=== PATIENT | male | born 1955 | race African-American/Black ===

== ENCOUNTER 2016-12-02 11:17 | Inpatient (IN) | payer OTHER ==
[2016-12-02 13:02] VITALS: BMI 35.9
--- NOTE | 2016-12-02 14:26 | HP ---
CIWA Score - CIWA Score Nausea/Vomitin Muscle Tremors: 3 Anxiety: 3 Agitation: 3 Paroxysmal Sweats: 2 Orientation: 0-Oriented Tacttile Disturbances: 2-Mild Itch/Numbness/Burn Auditory Disturbances: 2-Mild Harshness/Frighten Visual Disturbances: 2-Mild Sensitivity Headache: 2-Mild CIWA-Ar Total Score: 22 Admission ROS BHS - HPI Chief Complaint: i need help to stop using klonopin and cocaine Allergies/Adverse Reactions: Allergies Allergy/AdvReac Type Severity Reaction Status Date / Time methadone Allergy Severe Swelling Verified 12/02/16 14:18 Penicillins Allergy Severe Rash Verified 12/02/16 14:18 acetaminophen [From Tylenol] AdvReac Severe Nausea Verified 12/02/16 14:18 History of Present Illness: this 61 years old male with klonopin and cocaine dependnence,withdrawal symptom, last detox [facility] 10/04/16 to 10/07/16 bipolar disorder hypertension longest period of sobriety 3 years asthma hypercholesterolemia Exam Limitations: No Limitations - Ebola screening Have you traveled outside of the country in the last 21 days: No Have you been sick,other than usual withdrawal symptoms: No - Review of Systems Constitutional: Loss of Appetite, Malaise, Night Sweats, Changes in sleep, Weakness EENT: reports: Nose Congestion Respiratory: reports: No Symptoms reported Cardiac: reports: Palpitations GI: reports: Diarrhea, Nausea, Vomiting, Abdominal cramping : reports: No Symptoms Reported Musculoskeletal: reports: Back Pain, Joint Pain, Muscle Pain Integumentary: reports: Dryness Neuro: reports: Headache, Tremors Endocrine: reports: No Symptoms Reported Hematology: reports: No Symptoms Reported Psychiatric: reports: other (bipolar disorder) Patient History - Patient Medical History Hx Anemia: No Hx Asthma: Yes (on albuterol inhaler) Hx Chronic Obstructive Pulmonary Disease (COPD): No Hx Cancer: No Hx Cardiac Disorders: No Hx Congestive Heart Failure: No Hx Hypertension: Yes (on med) Hx Hypercholesterolemia: Yes (crestor) Hx Pacemaker: No HX Cerebrovascular Accident: No Hx Seizures: No Hx Dementia: No Hx Diabetes: No Hx Gastrointestinal Disorders: No Hx Liver Disease: No Hx Genitourinary Disorders: No Hx Sexually Transmitted Disorders: No Hx Renal Disease (ESRD): No Hx Thyroid Disease: No Hx Human Immunodeficiency Virus (HIV): No (last 01/16 negative) Hx Hepatitis C: No Hx Depression: Yes Hx Suicide Attempt: No Hx Bipolar Disorder: Yes (hospitalized, seroquel, abilify) Hx Schizophrenia: No Other Medical History: no suicidal,no homicidal - Patient Surgical History Past Surgical History: Yes Hx Neurologic Surgery: No Hx Cataract Extraction: No Hx Cardiac Surgery: No Hx Lung Surgery: No Hx Breast Surgery: No Hx Breast Biopsy: No Hx Abdominal Surgery: No Hx Appendectomy: Yes (1979) Hx Cholecystectomy: No Hx Genitourinary Surgery: Yes (SURGERY FOR PROSTRATE IN 2012 TURP) Hx Section: No Hx Orthopedic Surgery: No Anesthesia Reaction: No - PPD History Documented Results: Positive w/proof Date: 11/30/13 Results: 0 MM PPD to be Administered?: No - Smoking Cessation Smoking history: Never smoked Have you smoked in the past 12 months: No Cigars Per Day: 0 Hx Chewing Tobacco Use: No - Substance & Tx. History Hx Alcohol Use: No Hx Substance Use: Yes Substance Use Type: Cocaine, Tranquilizers - Substances Abused Cocaine Route: Inhalation Frequency: Daily Amount used: $50 Age of first use: 25 Date of Last Use: 12/01/16 klonopin Route: Oral Frequency: 3-6 times per week Amount used: 2 tabs. (2 mg.) Age of first use: 61 Date of Last Use: 12/01/16 Family Disease History - Family Disease History Family History: Denies Admission Physical Exam BHS - Vital Signs Vital Signs: Vital Signs - 24 hr 12/02/16 12:57 Temperature 96.5 F L Pulse Rate 86 Respiratory 18 Rate Blood Pressure 159/96 - Physical General Appearance: Yes: Moderate Distress, Tremorous, Irritable, Sweating, Anxious HEENTM: Yes: Nasal Congestion Respiratory: Yes: Within Normal Limits, Lungs Clear Neck: Yes: Within Normal Limits Breast: Yes: Within Normal Limits Cardiology: Yes: Within Normal Limits, Regular Rhythm, Regular Rate, S1, S2 Abdominal: Yes: Within Normal Limits, Normal Bowel Sounds, Non Tender, Flat, Soft Genitourinary: Yes: Within Normal Limits Back: Yes: Muscle Spasm Musculoskeletal: Yes: Back pain, Muscle Pain Extremities: Yes: Tremors Neurological: Yes: technology recruiter 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 intact, Fully Oriented, Alert, Motor Strength 5/5 Integumentary: Yes: Dry Lymphatic: Yes: Within Normal Limits - Diagnostic (1) Uncomplicated sedative, hypnotic or anxiolytic withdrawal Status: Acute (2) Cocaine dependence Status: Acute Qualifiers: Substance use status: uncomplicated Qualified Code(s): F14.20 - Cocaine dependence, uncomplicated (3) Asthma Status: Chronic Qualifiers: Asthma severity: mild intermittent Asthma complication type: uncomplicated Qualified Code(s): J45.20 - Mild intermittent asthma, uncomplicated (4) H/O hypercholesterolemia Status: Chronic (5) Hypertension Status: Chronic Qualifiers: Hypertension type: essential hypertension Qualified Code(s): I10 - Essential (primary) hypertension (6) Bipolar disorder Status: Chronic Comment: By history. Cleared for Admission [facility] - Detox or Rehab [facility] Level of Care: Medically Managed Detox Regimen/Protocol: Valium S Breath Alcohol Content Breath Alcohol Content: 0.031 Urine Drug Screen - Results Drug Screen Negative: No Urine Drug Screen Results: EWELINA-Cocaine, BZO-Benzodiazepines
[2016-12-02] MEDS ORDERED: MAGNESIUM HYDROX 2400MG/30ML ORAL SUSPENSION 30 ML CUP PO PRN (14:31)
[2016-12-02] MEDS ORDERED: MAGNESIUM CITRATE 300 ML BOTTLE PO PRN (14:31)
[2016-12-02] MEDS ORDERED: diphenhydrAMINE HCL 50 MG CAPSULE PO PRN (14:31)
[2016-12-02] MEDS ORDERED: MAG HYDROX/AL HYDROX/SIMETH 30 ML UNIT-DOSE CUP PO PRN (14:31)
[2016-12-02] MEDS ORDERED: MENTHOL/PHENOL 1 EACH UD MM PRN (14:31)
[2016-12-02] MEDS ORDERED: IBUPROFEN 400 MG TABLET (FP) PO PRN (14:31)
[2016-12-02] MEDS ORDERED: P-EPHED 60MG/TRIPROLIDI 2.5MG TABLET PO PRN (14:31)
[2016-12-02] MEDS ORDERED: hydrOXYzine PAMOATE 50 MG CAPSULE (FP) PO PRN (14:31)
[2016-12-02] MEDS ORDERED: guaiFENesin/D-METHORPHAN HB 10 ML UNIT-DOSE CUPS PO PRN (14:31)
[2016-12-02] MEDS ORDERED: LOPERAMIDE HCL 2 MG CAPSULE PO PRN (14:31)
[2016-12-02] MEDS ORDERED: ALBUTEROL SO4 6.7 GM HFA INHALER IH PRN (14:35)
[2016-12-02] MEDS ORDERED: diazePAM 5 MG TABLET PO PRN (15:49)
--- NOTE | 2016-12-02 15:50 | CONSULT ---
[facility] Psychiatric Consult - Data Date of interview: 12/02/16 Admission source: [facility] Identifying data: Another admission to [facility] for this 61 y/o AA male seeking detox treatment,on ,for benzodiazepine (clonazepam) and cocaine dependence.Patient is ,a father of three,domiciled,unemployed and supported on SSI benefits. Substance Abuse History: - Smoking Cessation. Smoking history: Never smoked. Have you smoked in the past 12 months: No. Cigars Per Day: 0. Hx Chewing Tobacco Use: No. - Substance & Tx. History. Hx Alcohol Use: No. Hx Substance Use: Yes. Substance Use Type: Cocaine, Tranquilizers. Confirmed by the patient in my interview. Medical History: Bronchial asthma,HTN,hypercholesterolemia,arthritis,lower back pain and BPH (TURP in 2012).Noted history of appendectomy (1979). Psychiatric History: History of multiple psychiatric hospitalizations : [facility] (),[facility] (1999) and [facility] ( 2006).Diagnosed with Bipolar Disorder.Mr Thomas reports that he sees a psychiatrist at the [facility] for medication management ( celexa 10 mg/day + risperdal 2 mg/hs).He states that he last took his medications two weeks ago.No longer on mirtazapine (discontinued by his psychiatrist,as per patient).Admits to moderate insomnia.No reported history of suicide attempts. Physical/Sexual Abuse/Trauma History: Patient denies. Additional Comment: Urine Drug Screen Results: EWELINA-Cocaine, BZO- Benzodiazepines.Noted. Mental Status Exam - Mental Status Exam Alert and Oriented to: Time, Place, Person Cognitive Function: Good Patient Appearance: Well Groomed Mood: Nervous, Apprehensive Affect: Mood Congruent Patient Behavior: Fatigued, Cooperative Speech Pattern: Clear Voice Loudness: Normal Thought Process: Goal Oriented Thought Disorder: Not Present Hallucinations: Denies Suicidal Ideation: Denies Homicidal Ideation: Denies Insight/Judgement: Poor Sleep: Poorly, Difficulty falling asleep Appetite: Good Muscle strength/Tone: Normal Gait/Station: Normal Psychiatric Findings - Problem List ([employer] 1, 2,3) (1) Uncomplicated sedative, hypnotic or anxiolytic withdrawal Current Visit: Yes Status: Acute (2) Cocaine dependence Current Visit: Yes Status: Acute Qualifiers: Substance use status: uncomplicated Qualified Code(s): F14.20 - Cocaine dependence, uncomplicated (3) Substance induced mood disorder Current Visit: Yes Status: Acute (4) Bipolar disorder Current Visit: Yes Status: Suspected Comment: By history. 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
[2016-12-02] MEDS: ASPIRIN 81 MG CHEWABLE TABLETS PO SCH (15:51)
[2016-12-02] MEDS: amLODIPine BESYLATE 10 MG TABLET (FP) PO SCH (15:52)
[2016-12-02 16:27] LABS: URINE APPEARANCE CLOUDY; URINE BILIRUBIN NEGATIVE (NEGATIVE); URINE BLOOD NEGATIVE (NEGATIVE); URINE COLOR YELLOW; URINE GLUCOSE (UA) NEGATIVE (NEGATIVE); URINE KETONE NEGATIVE (NEGATIVE); URINE LEUK ESTERASE NEGATIVE (NEGATIVE); URINE NITRITE NEGATIVE (NEGATIVE); URINE PROTEIN NEGATIVE (NEGATIVE); URINE UROBILINOGEN NEGATIVE E.U./dl (0.2-1.0)
[2016-12-02] MEDS ORDERED: diazePAM 5 MG TABLET PO ONE (16:30)
[2016-12-02] MEDS: ENALAPRIL MALEATE 10 MG TABLET (FP) PO SCH (22:18)
[2016-12-02] MEDS: risperiDONE 1 MG TABLET (FP) PO SCH (22:18)
[2016-12-02] MEDS: THIAMINE HCL 100 MG TABLET (FP) PO SCH (22:18)
[2016-12-02] MEDS: ATORVASTATIN CA 10 MG TABLET (FP) PO SCH (22:18)
[2016-12-02] MEDS: diazePAM 5 MG TABLET PO SCH (22:18)
[2016-12-02] MEDS: ZOLPIDEM TARTRATE 5 MG TABLET PO PRN (22:19)
[2016-12-03] MEDS: diazePAM 5 MG TABLET PO SCH ×3 (06:12→22:13)
[2016-12-03 09:17] LABS: HIV 1 & 2 AB NEGATIVE; HIV 1 AGp24 NEGATIVE
[2016-12-03 10:15] LABS: MCH 31.2 pg (25.7-33.7); MCHC 33.3 g/dl (32.0-35.9); MEAN CELL VOLUME 93.7 fl (80-96); MEAN PLT VOLUME 8.8 fl (7.5-11.1); PLATELET COUNT 321 K/MM3 (134-434); RDW 13.3 % (11.9-15.9); WHITE BLOOD COUNT 7.8 K/mm3 (4.0-10.0)
[2016-12-03] MEDS: PRENATAL VITAMINS W/ FOLIC ACID TABLET (FP) PO SCH (10:17)
[2016-12-03] MEDS: amLODIPine BESYLATE 10 MG TABLET (FP) PO SCH (10:17)
[2016-12-03] MEDS: ASPIRIN 81 MG CHEWABLE TABLETS PO SCH (10:17)
[2016-12-03] MEDS: CITALOPRAM HYDROBROMIDE 10 MG TABLET (FP) PO SCH (10:17)
[2016-12-03] MEDS: ENALAPRIL MALEATE 10 MG TABLET (FP) PO SCH ×2 (10:18→22:13)
[2016-12-03 10:35] LABS: ALBUMIN 3.8 g/dl (3.4-5.0); ALK PHOS 106 U/L (45-117); ANION GAP 9 (8-16); BILIRUBIN,TOTAL 0.7 mg/dL (0.2-1.0); CALCIUM 8.9 mg/dL (8.5-10.1); CHOLESTEROL 196 mg/dL (50-200); CO2 26 mmol/L (21-32); CREATININE 1.1 mg/dL (0.7-1.3); GLUCOSE,RANDOM 109 mg/dL (74-106); LDL CHOLESTEROL (ONLY SJRH) 130 mg/dL (5-100); SGOT/AST 31 U/L (15-37); SGPT/ALT 61 U/L (12-78); TOT PROT 7.8 g/dl (6.4-8.2)
--- NOTE | 2016-12-03 11:09 | PN ---
S CIWA - CIWA Score Nausea/Vomitin Muscle Tremors: 3 Anxiety: 4-Mod. Anxious/Guarded Agitation: 4-Moderately Restless Paroxysmal Sweats: No Perspiration Orientation: 0-Oriented Tacttile Disturbances: 1-Very Mild Itch/Numbness Auditory Disturbances: 0-None Visual Disturbances: 0-None Headache: 3-Moderate CIWA-Ar Total Score: 18 BHS Progress Note (SOAP) Subjective: Anxious, tremors, interrupted sleep, body aches, Objective: Vital Signs Temperature 96.9 F L 12/03/16 09:47 Pulse Rate 78 12/03/16 09:47 Respiratory Rate 18 12/03/16 09:47 Blood Pressure 129/84 12/03/16 09:47 O2 Sat by Pulse Oximetry (%) Laboratory Last Values WBC 7.8 K/mm3 (4.0-10.0) 12/03/16 07:40 RBC 4.60 M/mm3 (4.00-5.60) 12/03/16 07:40 Hgb 14.4 GM/dL (11.7-16.9) 12/03/16 07:40 Hct 43.1 % (35.4-49) 12/03/16 07:40 MCV 93.7 fl (80-96) 12/03/16 07:40 MCHC 33.3 g/dl (32.0-35.9) 12/03/16 07:40 RDW 13.3 % (11.9-15.9) 12/03/16 07:40 Plt Count 321 K/MM3 (134-434) 12/03/16 07:40 MPV 8.8 fl (7.5-11.1) 12/03/16 07:40 Sodium 141 mmol/L (136-145) 12/03/16 07:40 Potassium 4.2 mmol/L (3.5-5.1) D 12/03/16 07:40 Chloride 106 mmol/L (98-107) 12/03/16 07:40 Carbon Dioxide 26 mmol/L (21-32) 12/03/16 07:40 Anion Gap 9 (8-16) 12/03/16 07:40 BUN 16 mg/dL (7-18) 12/03/16 07:40 Creatinine 1.1 mg/dL (0.7-1.3) 12/03/16 07:40 Creat Clearance w eGFR > 60 (>60) 12/03/16 07:40 Random Glucose 109 mg/dL (74-106) H D 12/03/16 07:40 Calcium 8.9 mg/dL (8.5-10.1) 12/03/16 07:40 Total Bilirubin 0.7 mg/dL (0.2-1.0) 12/03/16 07:40 AST 31 U/L (15-37) 12/03/16 07:40 ALT 61 U/L (12-78) D 12/03/16 07:40 Alkaline Phosphatase 106 U/L (45-117) 12/03/16 07:40 Total Protein 7.8 g/dl (6.4-8.2) 12/03/16 07:40 Albumin 3.8 g/dl (3.4-5.0) 12/03/16 07:40 Triglycerides 201 mg/dL (35-160) H D 12/03/16 07:40 Cholesterol 196 mg/dL (50-200) 12/03/16 07:40 Total LDL Cholesterol 130 mg/dL (5-100) H 12/03/16 07:40 HDL Cholesterol 55 mg/dL (40-60) D 12/03/16 07:40 Urine Color Yellow 12/02/16 15:04 Urine Appearance Cloudy 12/02/16 15:04 Urine pH 8.0 (5.0-8.0) D 12/02/16 15:04 Ur Specific [place] 1.021 (1.001-1.035) 12/02/16 15:04 Urine Protein Negative (NEGATIVE) 12/02/16 15:04 Urine Glucose (UA) Negative (NEGATIVE) 12/02/16 15:04 Urine Ketones Negative (NEGATIVE) 12/02/16 15:04 Urine Blood Negative (NEGATIVE) 12/02/16 15:04 Urine Nitrite Negative (NEGATIVE) 12/02/16 15:04 Urine Bilirubin Negative (NEGATIVE) 12/02/16 15:04 Urine Urobilinogen Negative E.U./dl (0.2-1.0) 12/02/16 15:04 Ur Leukocyte Esterase Negative (NEGATIVE) 12/02/16 15:04 HIV 1&2 Antibody Screen Negative 12/02/16 15:00 HIV P24 Antigen Negative 12/02/16 15:00 labs noted Assessment: Withdrawal Symptoms Plan: Continue Detox
--- NOTE | 2016-12-03 21:08 | EKG ---
Test Reason : Blood Pressure : / mmHG Vent. Rate : 088 BPM Atrial Rate : 088 BPM P-R Int : 176 ms QRS Dur : 082 ms QT Int : 388 ms P-R-T Axes : 047 049 021 degrees QTc Int : 469 ms NORMAL SINUS RHYTHM NORMAL ECG NO PREVIOUS ECGS AVAILABLE Confirmed by REBEKA MARINELLI MD ([id number]) on 12/03/2016 9:07:47 PM Referred By: Confirmed By:REBEAK MARINELLI MD
[2016-12-03] MEDS: THIAMINE HCL 100 MG TABLET (FP) PO SCH (22:12)
[2016-12-03] MEDS: risperiDONE 1 MG TABLET (FP) PO SCH (22:13)
[2016-12-03] MEDS: ATORVASTATIN CA 10 MG TABLET (FP) PO SCH (22:13)
[2016-12-03] MEDS: ZOLPIDEM TARTRATE 5 MG TABLET PO PRN (22:13)
[2016-12-04] MEDS: ASPIRIN 81 MG CHEWABLE TABLETS PO SCH (09:00)
[2016-12-04] MEDS: amLODIPine BESYLATE 10 MG TABLET (FP) PO SCH (09:00)
[2016-12-04] MEDS: CITALOPRAM HYDROBROMIDE 10 MG TABLET (FP) PO SCH (09:00)
[2016-12-04] MEDS: PRENATAL VITAMINS W/ FOLIC ACID TABLET (FP) PO SCH (09:00)
[2016-12-04] MEDS: ENALAPRIL MALEATE 10 MG TABLET (FP) PO SCH (09:01)
[2016-12-04] MEDS ORDERED: diazePAM 5 MG TABLET PO SCH (10:00)
[2016-12-04 10:51] VITALS: BP 141/83; PULSE 91; TEMP 97.3
--- NOTE | 2016-12-04 12:30 | DS ---
[facility] Detox Discharge Summary Admission Date: 12/02/16 Discharge Date: 12/04/16 - History Present History: Sedative Dependence Pertinent Past History: HTN, ASTHMA, HLD, Positive PPD - Physical Exam Results Vital Signs: Vital Signs Temperature 97.3 F L 12/04/16 10:36 Pulse Rate 91 H 12/04/16 10:36 Respiratory Rate 18 12/04/16 10:36 Blood Pressure 141/83 12/04/16 10:36 O2 Sat by Pulse Oximetry (%) Pertinent Admission Physical Exam Findings: Withdrawal symptoms Laboratory Tests 12/02/16 12/02/16 12/03/16 15:00 15:04 07:40 WBC 7.8 RBC 4.60 Hgb 14.4 Hct 43.1 MCV 93.7 MCHC 33.3 RDW 13.3 Plt Count 321 MPV 8.8 Sodium Potassium Chloride Carbon Dioxide Anion Gap BUN Creatinine Creat Clearance w eGFR Random Glucose Calcium Total Bilirubin AST ALT Alkaline Phosphatase Total Protein Albumin Triglycerides Cholesterol Total LDL Cholesterol HDL Cholesterol Urine Color Yellow Urine Appearance Cloudy Urine pH 8.0 D Ur Specific [place] 1.021 Urine Protein Negative Urine Glucose (UA) Negative Urine Ketones Negative Urine Blood Negative Urine Nitrite Negative Urine Bilirubin Negative Urine Urobilinogen Negative Ur Leukocyte Esterase Negative RPR Titer HIV 1&2 Antibody Screen Negative HIV P24 Antigen Negative 12/03/16 12/03/16 12/03/16 07:40 07:40 07:40 WBC RBC Hgb Hct MCV MCHC RDW Plt Count MPV Sodium 141 Potassium 4.2 D Chloride 106 Carbon Dioxide 26 Anion Gap 9 BUN 16 Creatinine 1.1 Creat Clearance w eGFR > 60 Random Glucose 109 H D Calcium 8.9 Total Bilirubin 0.7 AST 31 ALT 61 D Alkaline Phosphatase 106 Total Protein 7.8 Albumin 3.8 Triglycerides 201 H D Cancelled Cholesterol 196 Cancelled Total LDL Cholesterol 130 H Cancelled HDL Cholesterol 55 D Cancelled Urine Color Urine Appearance Urine pH Ur Specific [place] Urine Protein Urine Glucose (UA) Urine Ketones Urine Blood Urine Nitrite Urine Bilirubin Urine Urobilinogen Ur Leukocyte Esterase RPR Titer Nonreactive HIV 1&2 Antibody Screen HIV P24 Antigen Labs noted - Medication Discharge Medications: Ambulatory Orders Albuterol Sulfate Inhaler - [Ventolin HFA Inhaler -] 2 inh PO Q4H PRN #1 inhaler 08/03/16 Amlodipine Besylate [Norvasc -] 10 mg PO DAILY #30 tablet 08/03/16 Aspirin [ASA -] 81 mg PO DAILY #30 tab.chew 08/03/16 Atorvastatin Ca [Lipitor] 10 mg PO HS #30 tablet 08/03/16 Enalapril Maleate [Vasotec -] 10 mg PO BID #60 tablet 08/03/16 Mirtazapine [Remeron -] 15 mg PO HS #30 tablet 10/05/16 Citalopram Hydrobromide [Celexa -] 10 mg PO DAILY #30 tablet 12/02/16 Risperidone [Risperdal] 2 mg PO HS #30 tablet 12/02/16 - Diagnosis (1) Uncomplicated sedative, hypnotic or anxiolytic withdrawal Status: Acute (2) H/O hypercholesterolemia Status: Chronic (3) Hypertension Status: Chronic Qualifiers: Hypertension type: essential hypertension Qualified Code(s): I10 - Essential (primary) hypertension (4) Bipolar disorder Status: Chronic (5) Asthma Status: Chronic Qualifiers: Asthma severity: mild intermittent Asthma complication type: uncomplicated Qualified Code(s): J45.20 - Mild intermittent asthma, uncomplicated (6) PPD positive Status: Chronic - AMA Did Patient Leave Against Medical Advice: Yes
[2016-12-06] MEDS ORDERED: diazePAM 5 MG TABLET PO SCH (10:00)
== END 2016-12-04 09:15 | disposition left against medical advice (07) | DRG 770 ==
LOC: YASAS 11:17 → Y3N 14:36
PROVIDERS: ADMIT Internal Medicine; ATTEND Internal Medicine
PROC: HZ2ZZZZ Detoxification Services for Substance Abuse Treatment (ICD-10-PCS; principal; 2016-12-04)
DX: F13.230 Sedative, hypnotic or anxiolytic dependence with withdrawal, uncomplicated (principal); F14.20 Cocaine dependence, uncomplicated; F31.9 Bipolar disorder, unspecified; F19.24 Other psychoactive substance dependence with psychoactive substance-induced mood disorder; I10 Essential (primary) hypertension; J45.20 Mild intermittent asthma, uncomplicated; E78.00 Pure hypercholesterolemia, unspecified; R76.11 Nonspecific reaction to tuberculin skin test without active tuberculosis
CPT/HCPCS: 36415; 80053; 80061; 81003; 83721; 85027; 86593; 87389; 93005; 93010; J2794

== ENCOUNTER 2017-07-16 09:14 | Inpatient (IN) | payer OTHER ==
[2017-07-16 10:30] VITALS: BMI 32.6
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
[2017-07-16] MEDS ORDERED: IBUPROFEN 400 MG TABLET (FP) PO PRN (12:22)
[2017-07-16] MEDS ORDERED: MENTHOL/PHENOL 1 EACH UD MM PRN (12:22)
[2017-07-16] MEDS ORDERED: diazePAM 5 MG TABLET PO ONE (12:22)
[2017-07-16] MEDS ORDERED: MAGNESIUM CITRATE 300 ML BOTTLE PO PRN (12:22)
[2017-07-16] MEDS ORDERED: MAG HYDROX/AL HYDROX/SIMETH 30 ML UNIT-DOSE CUP PO PRN (12:22)
[2017-07-16] MEDS ORDERED: MAGNESIUM HYDROX 2400MG/30ML ORAL SUSPENSION 30 ML CUP PO PRN (12:22)
[2017-07-16] MEDS ORDERED: hydrOXYzine PAMOATE 50 MG CAPSULE (FP) PO PRN (12:22)
[2017-07-16] MEDS ORDERED: P-EPHED 60MG/TRIPROLIDI 2.5MG TABLET PO PRN (12:22)
[2017-07-16] MEDS ORDERED: guaiFENesin/D-METHORPHAN HB 10 ML UNIT-DOSE CUPS PO PRN (12:22)
[2017-07-16] MEDS ORDERED: LOPERAMIDE HCL 2 MG CAPSULE PO PRN (12:22)
[2017-07-16] MEDS ORDERED: ALBUTEROL SO4 18 GM HFA INHALER IH PRN (12:34)
[2017-07-16] MEDS: ASPIRIN 81 MG CHEWABLE TABLETS PO SCH (13:31)
[2017-07-16] MEDS: amLODIPine BESYLATE 10 MG TABLET (FP) PO SCH (13:32)
[2017-07-16] MEDS: ENALAPRIL MALEATE 10 MG TABLET (FP) PO SCH ×2 (13:32→22:23)
[2017-07-16] MEDS: diazePAM 5 MG TABLET PO SCH ×2 (13:33→22:23)
--- NOTE | 2017-07-16 14:36 | PN ---
BHS Progress Note Note: Done under my direct supervision
--- NOTE | 2017-07-16 16:27 | EKG ---
Test Reason : Blood Pressure : / mmHG Vent. Rate : 066 BPM Atrial Rate : 066 BPM P-R Int : 176 ms QRS Dur : 086 ms QT Int : 418 ms P-R-T Axes : 055 063 040 degrees QTc Int : 438 ms NORMAL SINUS RHYTHM MINIMAL VOLTAGE CRITERIA FOR LVH, MAY BE NORMAL VARIANT BORDERLINE ECG WHEN COMPARED WITH ECG OF 02-DEC-2016 16:53, NO SIGNIFICANT CHANGE WAS FOUND Confirmed by ANGELICA NEFF MD ([id number]) on 07/16/2017 4:26:30 PM Referred By: Confirmed By:ANGELICA NEFF MD
[2017-07-16 21:49] LABS: URINE APPEARANCE CLEAR; URINE BILIRUBIN NEGATIVE (NEGATIVE); URINE BLOOD NEGATIVE (NEGATIVE); URINE COLOR YELLOW; URINE GLUCOSE (UA) NEGATIVE (NEGATIVE); URINE KETONE NEGATIVE (NEGATIVE); URINE NITRITE NEGATIVE (NEGATIVE); URINE PROTEIN NEGATIVE (NEGATIVE); URINE UROBILINOGEN NEGATIVE mg/dL (0.2-1.0)
[2017-07-16] MEDS: ATORVASTATIN CA 10 MG TABLET (FP) PO SCH (22:23)
[2017-07-16] MEDS: THIAMINE HCL 100 MG TABLET (FP) PO SCH (22:23)
[2017-07-16] MEDS: diphenhydrAMINE HCL 50 MG CAPSULE PO PRN (22:24)
[2017-07-17] MEDS: diazePAM 5 MG TABLET PO SCH ×3 (06:10→22:11)
[2017-07-17] MEDS: amLODIPine BESYLATE 10 MG TABLET (FP) PO SCH (10:26)
[2017-07-17] MEDS: ENALAPRIL MALEATE 10 MG TABLET (FP) PO SCH ×2 (10:26→22:11)
[2017-07-17] MEDS: PRENATAL VITAMINS W/ FOLIC ACID TABLET (FP) PO SCH (10:26)
[2017-07-17] MEDS: diazePAM 5 MG TABLET PO PRN ×2 (10:26→17:24)
[2017-07-17] MEDS: ASPIRIN 81 MG CHEWABLE TABLETS PO SCH (10:26)
[2017-07-17 10:37] LABS: MCH 30.4 pg (25.7-33.7); MEAN CELL VOLUME 92.2 fl (80-96); MEAN PLT VOLUME 8.3 fl (7.5-11.1); PLATELET COUNT 372 K/MM3 (134-434); RDW 13.1 % (11.9-15.9); WHITE BLOOD COUNT 7.6 K/mm3 (4.0-10.0)
[2017-07-17 11:00] LABS: ALBUMIN 3.2 g/dl (3.4-5.0); ALK PHOS 114 U/L (45-117); ANION GAP 9 (8-16); BILIRUBIN,TOTAL 0.5 mg/dL (0.2-1.0); CALCIUM 8.9 mg/dL (8.5-10.1); CO2 27 mmol/L (21-32); CREATININE 0.8 mg/dL (0.7-1.3); GLUCOSE,RANDOM 97 mg/dL (74-106); SGOT/AST 15 U/L (15-37); SGPT/ALT 29 U/L (12-78); TOT PROT 6.7 g/dl (6.4-8.2)
[2017-07-17 11:46] LABS: HIV 1 & 2 AB NEGATIVE; HIV 1 AGp24 NEGATIVE
[2017-07-17] MEDS ORDERED: cloNIDine HCL 0.1 MG TABLET PO ONE (12:22)
--- NOTE | 2017-07-17 12:43 | PN ---
S CIWA - CIWA Score Nausea/Vomitin Muscle Tremors: 3 Anxiety: 3 Agitation: 2 Paroxysmal Sweats: 1-Minimal Palms Moist Orientation: 0-Oriented Tacttile Disturbances: 1-Very Mild Itch/Numbness Auditory Disturbances: 1-Very Mild Visual Disturbances: 0-None Headache: 2-Mild CIWA-Ar Total Score: 16 BHS Progress Note (SOAP) Subjective: ALERT,IRRITABLE,ANXIOUS,INTERRUPTED SLEEP,TREMOR Objective: 07/17/17 12:40 07/17/17 12:41 Vital Signs Temperature 97.7 F 07/17/17 09:52 Pulse Rate 76 07/17/17 09:52 Respiratory Rate 18 07/17/17 09:52 Blood Pressure 141/99 07/17/17 09:52 O2 Sat by Pulse Oximetry (%) EKG NSR,LVH NO CHEST PAIN,NO SOB,NO DIZZINESS Laboratory Last Values WBC 7.6 K/mm3 (4.0-10.0) 07/17/17 07:00 RBC 4.47 M/mm3 (4.00-5.60) 07/17/17 07:00 Hgb 13.6 GM/dL (11.7-16.9) 07/17/17 07:00 Hct 41.2 % (35.4-49) 07/17/17 07:00 MCV 92.2 fl (80-96) 07/17/17 07:00 MCH 30.4 pg (25.7-33.7) 07/17/17 07:00 MCHC 33.0 g/dl (32.0-35.9) 07/17/17 07:00 RDW 13.1 % (11.9-15.9) 07/17/17 07:00 Plt Count 372 K/MM3 (134-434) 07/17/17 07:00 MPV 8.3 fl (7.5-11.1) 07/17/17 07:00 Sodium 140 mmol/L (136-145) 07/17/17 07:00 Potassium 3.9 mmol/L (3.5-5.1) 07/17/17 07:00 Chloride 104 mmol/L (98-107) 07/17/17 07:00 Carbon Dioxide 27 mmol/L (21-32) 07/17/17 07:00 Anion Gap 9 (8-16) 07/17/17 07:00 BUN 13 mg/dL (7-18) 07/17/17 07:00 Creatinine 0.8 mg/dL (0.7-1.3) D 07/17/17 07:00 Creat Clearance w eGFR > 60 (>60) 07/17/17 07:00 Random Glucose 97 mg/dL (74-106) 07/17/17 07:00 Calcium 8.9 mg/dL (8.5-10.1) 07/17/17 07:00 Total Bilirubin 0.5 mg/dL (0.2-1.0) D 07/17/17 07:00 AST 15 U/L (15-37) D 07/17/17 07:00 ALT 29 U/L (12-78) D 07/17/17 07:00 Alkaline Phosphatase 114 U/L (45-117) 07/17/17 07:00 Total Protein 6.7 g/dl (6.4-8.2) 07/17/17 07:00 Albumin 3.2 g/dl (3.4-5.0) L 07/17/17 07:00 Urine Color Yellow 07/16/17 17:52 Urine Appearance Clear 07/16/17 17:52 Urine pH 6.0 (5.0-8.0) D 07/16/17 17:52 Urine Protein Negative (NEGATIVE) 07/16/17 17:52 Urine Glucose (UA) Negative (NEGATIVE) 07/16/17 17:52 Urine Ketones Negative (NEGATIVE) 07/16/17 17:52 Urine Blood Negative (NEGATIVE) 07/16/17 17:52 Urine Nitrite Negative (NEGATIVE) 07/16/17 17:52 Urine Bilirubin Negative (NEGATIVE) 07/16/17 17:52 Urine Urobilinogen Negative mg/dL (0.2-1.0) 07/16/17 17:52 RPR Titer Nonreactive (NONREACTIVE) 07/17/17 07:00 HIV 1&2 Antibody Screen Negative 07/17/17 07:00 HIV P24 Antigen Negative 07/17/17 07:00 Assessment: 07/17/17 12:42 WITHDRAWAL SYMPTOM Plan: CONTINUE DETOX
--- NOTE | 2017-07-17 14:52 | CONSULT ---
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 Substance Abuse History: Confirmed by patient. Smoking Cessation. Smoking history: Never smoked. Have you smoked in the past 12 months: No. Cigars Per Day: 0. Hx Chewing Tobacco Use: No. - Substance & Tx. History. Hx Alcohol Use : Yes. Hx Substance Use: Yes. Substance Use Type: Alcohol, Cocaine, Tranquilizers. Hx Substance Use Treatment: Yes (detox 2013). - Substances Abused. Alcohol. Route: Oral. Frequency: Daily. Amount used: VODKA 1 PINT , BEER- 1 SIX PACK. Age of first use: 21. Date of Last Use: 07/15/17. Benzodiazepine (Klonopin). Route: Oral. Frequency: Daily. Amount used: 2mg. Age of first use: 45. Date of Last Use: 07/15/17. Crack. Route: Smoking. Frequency: Daily. Amount used: 1gm. Age of first use: 20. Date of Last Use: 07/15/17 Medical History: Bronchial asthma,HTN,hypercholesterolemia,arthritis,lower back pain and BPH (TURP in 2012).Noted history of appendectomy (1979). Psychiatric History: No changes in longitudinal history : multiple psychiatric hospitalizations.Patient is known to [facility] (1989'),[facility] ( 1999) and [facility] (2006).Diagnosed with Bipolar Disorder.Mr Thomas reports that he sees a psychiatrist at the [facility] for medication management (celexa + abilify).Doses not recalled by patient.He states that he last took his medications two weeks ago.No reported history of suicide attempts. Physical/Sexual Abuse/Trauma History: Patient denies. Physical/Sexual Abuse/Trauma History: No history of abuse. Additional Comment: Urine Drug Screen Results: EWELINA-Cocaine, BZO- Benzodiazepines.Noted. Mental Status Exam - Mental Status Exam Alert and Oriented to: Time, Place, Person Cognitive Function: Good Patient Appearance: Well Groomed Mood: Hopeful, Euthymic Affect: Appropriate, Normal Range Patient Behavior: Appropriate, Cooperative Speech Pattern: Clear, Appropriate Voice Loudness: Normal Thought Process: Intact, Goal Oriented Thought Disorder: Not Present Hallucinations: Denies Suicidal Ideation: Denies Homicidal Ideation: Denies Insight/Judgement: Poor Sleep: Poorly, Difficulty falling asleep Appetite: Good Muscle strength/Tone: Normal Gait/Station: Normal Psychiatric Findings - Problem List ([place] 1, 2,3) (1) Alcohol dependence with uncomplicated withdrawal Current Visit: Yes Status: Acute (2) Cocaine dependence Current Visit: Yes Status: Acute Qualifiers: Substance use status: uncomplicated Qualified Code(s): F14.20 - Cocaine dependence, uncomplicated; F14.20 - Cocaine dependence, uncomplicated; F14.20 - Cocaine dependence, uncomplicated (3) Uncomplicated sedative, hypnotic or anxiolytic withdrawal Current Visit: Yes Status: Acute (4) Opioid dependence with withdrawal Current Visit: Yes Status: Acute (5) Bipolar disorder Current Visit: Yes Status: Suspected Comment: By history. (6) Asthma Current Visit: Yes Status: Chronic Qualifiers: Asthma severity: mild intermittent Asthma complication type: uncomplicated (7) H/O hypercholesterolemia Current Visit: Yes Status: Chronic (8) Hypertension Current Visit: Yes Status: Chronic Qualifiers: Hypertension type: essential hypertension Qualified Code(s): I10 - Essential (primary) hypertension; I10 - Essential (primary) hypertension; I10 - Essential (primary) hypertension (9) Insomnia Current Visit: Yes Status: Acute - Initial Treatment Plan Initial Treatment Plan: Psychoeducation.Detoxification.Medication : celexa 10 mg po daily.Insomnia is addressed with Ambien 10 mg po hs.Side effects/benefits of both medications are discussed with the patient.He agrees to follow this careplan.Observation.
[2017-07-17 15:34] LABS: URINE LEUK ESTERASE Negative (NEGATIVE)
[2017-07-17] MEDS: ATORVASTATIN CA 10 MG TABLET (FP) PO SCH (22:10)
[2017-07-17] MEDS: THIAMINE HCL 100 MG TABLET (FP) PO SCH (22:11)
[2017-07-17] MEDS: diphenhydrAMINE HCL 50 MG CAPSULE PO PRN (22:11)
[2017-07-18] MEDS: ASPIRIN 81 MG CHEWABLE TABLETS PO SCH (10:59)
[2017-07-18] MEDS: amLODIPine BESYLATE 10 MG TABLET (FP) PO SCH (10:59)
[2017-07-18] MEDS: PRENATAL VITAMINS W/ FOLIC ACID TABLET (FP) PO SCH (10:59)
[2017-07-18] MEDS: diazePAM 5 MG TABLET PO SCH ×2 (10:59→22:38)
[2017-07-18] MEDS: ENALAPRIL MALEATE 10 MG TABLET (FP) PO SCH ×2 (10:59→22:38)
[2017-07-18] MEDS: CITALOPRAM HYDROBROMIDE 10 MG TABLET (FP) PO SCH (11:00)
--- NOTE | 2017-07-18 12:25 | PN ---
BHS CIWA - CIWA Score Nausea/Vomitin Muscle Tremors: 3 Anxiety: 3 Agitation: 2 Paroxysmal Sweats: 1-Minimal Palms Moist Orientation: 0-Oriented Tacttile Disturbances: 1-Very Mild Itch/Numbness Auditory Disturbances: 1-Very Mild Visual Disturbances: 0-None Headache: 2-Mild CIWA-Ar Total Score: 16 BHS Progress Note (SOAP) Subjective: ALERT,IRRITABLE,ANXIOUS,INTERRUPTED SLEEP,TREMOR,PAIN IN THE BODY Objective: 07/18/17 12:23 Vital Signs Temperature 98.2 F 07/18/17 09:44 Pulse Rate 81 07/18/17 09:44 Respiratory Rate 18 07/18/17 09:44 Blood Pressure 146/96 07/18/17 09:44 O2 Sat by Pulse Oximetry (%) Assessment: 07/18/17 12:23 WITHDRAWAL SYMPTOM Plan: CONTINUE DETOX
[2017-07-18] MEDS: THIAMINE HCL 100 MG TABLET (FP) PO SCH (22:38)
[2017-07-18] MEDS: ZOLPIDEM TARTRATE 10 MG TABLET (PARK CARE ONLY) PO PRN (22:38)
[2017-07-18] MEDS: ATORVASTATIN CA 10 MG TABLET (FP) PO SCH (22:38)
[2017-07-19] MEDS: PRENATAL VITAMINS W/ FOLIC ACID TABLET (FP) PO SCH (10:42)
[2017-07-19] MEDS: diazePAM 5 MG TABLET PO SCH ×2 (10:42→22:28)
[2017-07-19] MEDS: amLODIPine BESYLATE 10 MG TABLET (FP) PO SCH (10:43)
[2017-07-19] MEDS: ENALAPRIL MALEATE 10 MG TABLET (FP) PO SCH ×2 (10:43→22:28)
[2017-07-19] MEDS: ASPIRIN 81 MG CHEWABLE TABLETS PO SCH (10:43)
[2017-07-19] MEDS: CITALOPRAM HYDROBROMIDE 10 MG TABLET (FP) PO SCH (10:43)
[2017-07-19] MEDS: diazePAM 5 MG TABLET PO PRN (12:02)
--- NOTE | 2017-07-19 12:36 | PN ---
BHS Progress Note (SOAP) Subjective: alert,irritable,anxious,interrupted sleep,pain in foot,body Objective: 07/19/17 12:35 Vital Signs Temperature 97.6 F 07/19/17 11:00 Pulse Rate 84 07/19/17 11:00 Respiratory Rate 20 07/19/17 11:00 Blood Pressure 153/100 07/19/17 11:00 O2 Sat by Pulse Oximetry (%) Assessment: 07/19/17 12:36 withdrawal symptom Plan: continue detox,discharge in am
[2017-07-19] MEDS: ATORVASTATIN CA 10 MG TABLET (FP) PO SCH (22:28)
[2017-07-19] MEDS: ZOLPIDEM TARTRATE 10 MG TABLET (PARK CARE ONLY) PO PRN (22:28)
[2017-07-19] MEDS: THIAMINE HCL 100 MG TABLET (FP) PO SCH (22:28)
--- NOTE | 2017-07-20 08:43 | DS ---
[facility] Detox Discharge Summary Admission Date: 07/16/17 Discharge Date: 07/20/17 - History Present History: Alcohol Dependence, Cocaine Dependence, Sedative Dependence Additional Comments: follow up with after care program as arrangement Pertinent Past History: asthma hepercholesterolemia hypertension bipolar disorder - Physical Exam Results Vital Signs: Vital Signs Temperature 97.2 F L 07/20/17 06:00 Pulse Rate 84 07/20/17 06:00 Respiratory Rate 18 07/20/17 06:00 Blood Pressure 145/97 07/20/17 06:00 O2 Sat by Pulse Oximetry (%) Pertinent Admission Physical Exam Findings: withdrawal symptom - Treatment Hospital Course: Detox Protocol Followed, Detoxed Safely, Responded well, Discharged Condition Good, Rehab Referral Accepted Patient has Accepted a Rehab Referral to: [facility] - Medication Discharge Medications: Ambulatory Orders Albuterol Sulfate Inhaler - [Ventolin HFA Inhaler -] 2 inh PO Q4H PRN #1 inhaler 08/03/16 Amlodipine Besylate [Norvasc -] 10 mg PO DAILY #30 tablet 08/03/16 Aspirin [ASA -] 81 mg PO DAILY #30 tab.chew 08/03/16 Atorvastatin Ca [Lipitor] 10 mg PO HS #30 tablet 08/03/16 Enalapril Maleate [Vasotec -] 10 mg PO BID #60 tablet 08/03/16 Mirtazapine [Remeron -] 15 mg PO HS #30 tablet 10/05/16 Citalopram Hydrobromide [Celexa -] 10 mg PO DAILY #30 tablet 12/02/16 Risperidone [Risperdal] 2 mg PO HS #30 tablet 12/02/16 - Diagnosis (1) Alcohol dependence with uncomplicated withdrawal Current Visit: Yes Status: Acute (2) Cocaine dependence Current Visit: Yes Status: Acute Qualifiers: Substance use status: uncomplicated Qualified Code(s): F14.20 - Cocaine dependence, uncomplicated; F14.20 - Cocaine dependence, uncomplicated; F14.20 - Cocaine dependence, uncomplicated (3) Asthma Current Visit: Yes Status: Chronic Qualifiers: Asthma severity: mild intermittent Asthma complication type: uncomplicated (4) H/O hypercholesterolemia Current Visit: Yes Status: Chronic (5) Hypertension Current Visit: Yes Status: Chronic Qualifiers: Hypertension type: essential hypertension Qualified Code(s): I10 - Essential (primary) hypertension; I10 - Essential (primary) hypertension; I10 - Essential (primary) hypertension (6) Bipolar disorder Current Visit: Yes Status: Suspected - AMA Did Patient Leave Against Medical Advice: No
[2017-07-20] MEDS ORDERED: diazePAM 5 MG TABLET PO SCH (10:00)
[2017-07-20 11:03] VITALS: BP 134/95; PULSE 90; TEMP 97.7
[2017-07-20] MEDS: ASPIRIN 81 MG CHEWABLE TABLETS PO SCH (11:14)
[2017-07-20] MEDS: CITALOPRAM HYDROBROMIDE 10 MG TABLET (FP) PO SCH (11:15)
[2017-07-20] MEDS: ENALAPRIL MALEATE 10 MG TABLET (FP) PO SCH (11:15)
[2017-07-20] MEDS: PRENATAL VITAMINS W/ FOLIC ACID TABLET (FP) PO SCH (11:15)
[2017-07-20] MEDS: amLODIPine BESYLATE 10 MG TABLET (FP) PO SCH (11:15)
== END 2017-07-20 13:45 | disposition other institution (70) | DRG 774 ==
LOC: YASAS 09:14 → Y6N 12:15
PROVIDERS: ADMIT Internal Medicine; ATTEND Internal Medicine
PROC: HZ2ZZZZ Detoxification Services for Substance Abuse Treatment (ICD-10-PCS; principal; 2017-07-16)
DX: F10.230 Alcohol dependence with withdrawal, uncomplicated (principal); F13.230 Sedative, hypnotic or anxiolytic dependence with withdrawal, uncomplicated; F14.20 Cocaine dependence, uncomplicated; F31.9 Bipolar disorder, unspecified; J45.20 Mild intermittent asthma, uncomplicated; E78.00 Pure hypercholesterolemia, unspecified; I10 Essential (primary) hypertension; G47.00 Insomnia, unspecified; Z88.0 Allergy status to penicillin; Z88.6 Allergy status to analgesic agent; R76.11 Nonspecific reaction to tuberculin skin test without active tuberculosis
CPT/HCPCS: 36415; 71020-TC; 80053; 81003; 85027; 86593; 87389; 93005; 93010

== ENCOUNTER 2017-07-20 13:59 | Inpatient (IN) | payer OTHER ==
--- NOTE | 2017-07-20 15:33 | HP ---
[facility] Rehab Assess/Revision - Admission History Admitted to Rehab from: [facility] [place] Date of Admission to Rehab: 07/20/2917 - Vital signs Vital Signs: Vital Signs Period Temp Pulse Resp BP Sys/Traylor Pulse Ox Last 24 Hr 98.2 F 94 19 120/85 - Findings Detox History & Physical reviewed: Yes Concur with findings: Yes Inpatient Rehab Admission - Initial Determination Are CD services needed?: Yes Free of communicable disease: Yes Not in need of hospitalization: Yes - Rehab Admission Criteria Comorbidities: Yes Patient is meeting Inpatient Rehab admission criteria:: Yes
[2017-07-20] MEDS ORDERED: MAGNESIUM HYDROX 2400MG/30ML ORAL SUSPENSION 30 ML CUP PO PRN (15:41)
[2017-07-20] MEDS ORDERED: MAG HYDROX/AL HYDROX/SIMETH 30 ML UNIT-DOSE CUP PO PRN (15:41)
[2017-07-20] MEDS ORDERED: hydrOXYzine PAMOATE 50 MG CAPSULE (FP) PO PRN (15:41)
[2017-07-20] MEDS ORDERED: MAGNESIUM CITRATE 300 ML BOTTLE PO PRN (15:41)
[2017-07-20] MEDS ORDERED: IBUPROFEN 400 MG TABLET (FP) PO PRN (15:41)
[2017-07-20] MEDS ORDERED: NICOTINE POLACRILEX 2 MG GUM BUC PRN (15:41)
[2017-07-20] MEDS ORDERED: P-EPHED 60MG/TRIPROLIDI 2.5MG TABLET PO PRN (15:41)
[2017-07-20] MEDS ORDERED: MENTHOL/PHENOL 1 EACH UD MM PRN (15:41)
[2017-07-20] MEDS ORDERED: LOPERAMIDE HCL 2 MG CAPSULE PO PRN (15:41)
[2017-07-20] MEDS ORDERED: ALBUTEROL SO4 18 GM HFA INHALER IH PRN (15:42)
[2017-07-20] MEDS: ATORVASTATIN CA 10 MG TABLET (FP) PO SCH (21:40)
[2017-07-20] MEDS: THIAMINE HCL 100 MG TABLET (FP) PO SCH (21:40)
[2017-07-20] MEDS: ENALAPRIL MALEATE 10 MG TABLET (FP) PO SCH (21:40)
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
[2017-07-21] MEDS: ENALAPRIL MALEATE 10 MG TABLET (FP) PO SCH ×2 (10:31→21:34)
[2017-07-21] MEDS: amLODIPine BESYLATE 10 MG TABLET (FP) PO SCH (10:31)
[2017-07-21] MEDS: ASPIRIN 81 MG CHEWABLE TABLETS PO SCH (10:31)
[2017-07-21] MEDS: PRENATAL VITAMINS W/ FOLIC ACID TABLET (FP) PO SCH (10:31)
[2017-07-21] MEDS: NICOTINE 14 MG/24 HOURS TOPICAL PATCH TD SCH (10:32)
[2017-07-21] MEDS ORDERED: PNEUMOC 13-VAL CONJ-DIP CRM/PF 0.5 ML DISP.SYRIN IM ONE (12:00)
[2017-07-21] MEDS ORDERED: FLU VACCINE QUAD 60 MCG/0.5 ML (MDV 17-18) IM ONE (12:00)
[2017-07-21] MEDS ORDERED: PNEUMOCOCCAL 23 VACCINE 0.5 ML VIAL IM ONE (12:00)
[2017-07-21] MEDS: CITALOPRAM HYDROBROMIDE 10 MG TABLET (FP) PO SCH (12:37)
[2017-07-21] MEDS: ATORVASTATIN CA 10 MG TABLET (FP) PO SCH (21:34)
[2017-07-21] MEDS: THIAMINE HCL 100 MG TABLET (FP) PO SCH (21:34)
[2017-07-21] MEDS: risperiDONE 2 MG TABLET PO SCH (21:34)
[2017-07-21] MEDS ORDERED: SUVOREXANT 10 MG TABLET PO PRN (22:00)
[2017-07-22] MEDS: NICOTINE 14 MG/24 HOURS TOPICAL PATCH TD SCH (10:00)
[2017-07-22] MEDS: ENALAPRIL MALEATE 10 MG TABLET (FP) PO SCH ×2 (10:00→21:21)
[2017-07-22] MEDS: PRENATAL VITAMINS W/ FOLIC ACID TABLET (FP) PO SCH (10:00)
[2017-07-22] MEDS: amLODIPine BESYLATE 10 MG TABLET (FP) PO SCH (10:00)
[2017-07-22] MEDS: ASPIRIN 81 MG CHEWABLE TABLETS PO SCH (10:00)
[2017-07-22] MEDS: CITALOPRAM HYDROBROMIDE 10 MG TABLET (FP) PO SCH (10:00)
[2017-07-22] MEDS: risperiDONE 2 MG TABLET PO SCH (21:21)
[2017-07-22] MEDS: ATORVASTATIN CA 10 MG TABLET (FP) PO SCH (21:21)
[2017-07-22] MEDS: THIAMINE HCL 100 MG TABLET (FP) PO SCH (21:21)
[2017-07-23] MEDS: PRENATAL VITAMINS W/ FOLIC ACID TABLET (FP) PO SCH (10:21)
[2017-07-23] MEDS: amLODIPine BESYLATE 10 MG TABLET (FP) PO SCH (10:21)
[2017-07-23] MEDS: ENALAPRIL MALEATE 10 MG TABLET (FP) PO SCH ×2 (10:21→21:31)
[2017-07-23] MEDS: ASPIRIN 81 MG CHEWABLE TABLETS PO SCH (10:21)
[2017-07-23] MEDS: CITALOPRAM HYDROBROMIDE 10 MG TABLET (FP) PO SCH (10:21)
[2017-07-23] MEDS: NICOTINE 14 MG/24 HOURS TOPICAL PATCH TD SCH (10:22)
[2017-07-23] MEDS: risperiDONE 2 MG TABLET PO SCH (21:31)
[2017-07-23] MEDS: THIAMINE HCL 100 MG TABLET (FP) PO SCH (21:31)
[2017-07-23] MEDS: ATORVASTATIN CA 10 MG TABLET (FP) PO SCH (21:31)
[2017-07-24] MEDS: PRENATAL VITAMINS W/ FOLIC ACID TABLET (FP) PO SCH (10:06)
[2017-07-24] MEDS: ASPIRIN 81 MG CHEWABLE TABLETS PO SCH (10:06)
[2017-07-24] MEDS: amLODIPine BESYLATE 10 MG TABLET (FP) PO SCH (10:06)
[2017-07-24] MEDS: CITALOPRAM HYDROBROMIDE 10 MG TABLET (FP) PO SCH (10:06)
[2017-07-24] MEDS: ENALAPRIL MALEATE 10 MG TABLET (FP) PO SCH ×2 (10:06→21:36)
[2017-07-24] MEDS: NICOTINE 14 MG/24 HOURS TOPICAL PATCH TD SCH (10:06)
[2017-07-24] MEDS: risperiDONE 2 MG TABLET PO SCH (21:36)
[2017-07-24] MEDS: ATORVASTATIN CA 10 MG TABLET (FP) PO SCH (21:36)
[2017-07-24] MEDS: THIAMINE HCL 100 MG TABLET (FP) PO SCH (21:36)
[2017-07-25] MEDS: ASPIRIN 81 MG CHEWABLE TABLETS PO SCH (10:25)
[2017-07-25] MEDS: ENALAPRIL MALEATE 10 MG TABLET (FP) PO SCH ×2 (10:25→21:53)
[2017-07-25] MEDS: amLODIPine BESYLATE 10 MG TABLET (FP) PO SCH (10:25)
[2017-07-25] MEDS: PRENATAL VITAMINS W/ FOLIC ACID TABLET (FP) PO SCH (10:25)
[2017-07-25] MEDS: CITALOPRAM HYDROBROMIDE 10 MG TABLET (FP) PO SCH (10:25)
[2017-07-25] MEDS: NICOTINE 14 MG/24 HOURS TOPICAL PATCH TD SCH (10:25)
[2017-07-25] MEDS ORDERED: HYDROCORTISONE 1% TOPICAL CREAM 30 GM TUBE TP ONE (11:48)
[2017-07-25] MEDS: HYDROCORTISONE 1% TOPICAL CREAM 30 GM TUBE TP PRN (15:53)
[2017-07-25] MEDS: ATORVASTATIN CA 10 MG TABLET (FP) PO SCH (21:53)
[2017-07-25] MEDS: risperiDONE 2 MG TABLET PO SCH (21:53)
[2017-07-25] MEDS: THIAMINE HCL 100 MG TABLET (FP) PO SCH (21:53)
[2017-07-25] MEDS: diphenhydrAMINE HCL 50 MG CAPSULE PO PRN (21:53)
[2017-07-26] MEDS: CITALOPRAM HYDROBROMIDE 10 MG TABLET (FP) PO SCH (10:36)
[2017-07-26] MEDS: ASPIRIN 81 MG CHEWABLE TABLETS PO SCH (10:36)
[2017-07-26] MEDS: ENALAPRIL MALEATE 10 MG TABLET (FP) PO SCH ×2 (10:36→21:19)
[2017-07-26] MEDS: PRENATAL VITAMINS W/ FOLIC ACID TABLET (FP) PO SCH (10:36)
[2017-07-26] MEDS: amLODIPine BESYLATE 10 MG TABLET (FP) PO SCH (10:36)
[2017-07-26] MEDS: HYDROCORTISONE 1% TOPICAL CREAM 30 GM TUBE TP PRN (10:36)
[2017-07-26] MEDS: NICOTINE 14 MG/24 HOURS TOPICAL PATCH TD SCH (10:38)
[2017-07-26] MEDS: ATORVASTATIN CA 10 MG TABLET (FP) PO SCH (21:19)
[2017-07-26] MEDS: THIAMINE HCL 100 MG TABLET (FP) PO SCH (21:19)
[2017-07-26] MEDS: risperiDONE 2 MG TABLET PO SCH (21:20)
[2017-07-27] MEDS: ASPIRIN 81 MG CHEWABLE TABLETS PO SCH (10:19)
[2017-07-27] MEDS: guaiFENesin/D-METHORPHAN HB 10 ML UNIT-DOSE CUPS PO PRN ×2 (10:19→17:14)
[2017-07-27] MEDS: CITALOPRAM HYDROBROMIDE 10 MG TABLET (FP) PO SCH (10:19)
[2017-07-27] MEDS: amLODIPine BESYLATE 10 MG TABLET (FP) PO SCH (10:19)
[2017-07-27] MEDS: ENALAPRIL MALEATE 10 MG TABLET (FP) PO SCH ×2 (10:19→21:38)
[2017-07-27] MEDS: PRENATAL VITAMINS W/ FOLIC ACID TABLET (FP) PO SCH (10:21)
[2017-07-27] MEDS: NICOTINE 14 MG/24 HOURS TOPICAL PATCH TD SCH (10:21)
[2017-07-27] MEDS: diphenhydrAMINE HCL 50 MG CAPSULE PO PRN (21:38)
[2017-07-27] MEDS: THIAMINE HCL 100 MG TABLET (FP) PO SCH (21:38)
[2017-07-27] MEDS: ATORVASTATIN CA 10 MG TABLET (FP) PO SCH (21:38)
[2017-07-27] MEDS: risperiDONE 2 MG TABLET PO SCH (21:38)
[2017-07-28] MEDS: PRENATAL VITAMINS W/ FOLIC ACID TABLET (FP) PO SCH (10:40)
[2017-07-28] MEDS: CITALOPRAM HYDROBROMIDE 10 MG TABLET (FP) PO SCH (10:40)
[2017-07-28] MEDS: amLODIPine BESYLATE 10 MG TABLET (FP) PO SCH (10:40)
[2017-07-28] MEDS: ENALAPRIL MALEATE 10 MG TABLET (FP) PO SCH ×2 (10:40→21:43)
[2017-07-28] MEDS: ASPIRIN 81 MG CHEWABLE TABLETS PO SCH (10:40)
[2017-07-28] MEDS: guaiFENesin/D-METHORPHAN HB 10 ML UNIT-DOSE CUPS PO PRN (10:41)
[2017-07-28] MEDS: NICOTINE 14 MG/24 HOURS TOPICAL PATCH TD SCH (10:42)
[2017-07-28] MEDS: THIAMINE HCL 100 MG TABLET (FP) PO SCH (21:43)
[2017-07-28] MEDS: ATORVASTATIN CA 10 MG TABLET (FP) PO SCH (21:43)
[2017-07-28] MEDS: risperiDONE 2 MG TABLET PO SCH (21:43)
[2017-07-29] MEDS: ENALAPRIL MALEATE 10 MG TABLET (FP) PO SCH ×2 (10:09→22:01)
[2017-07-29] MEDS: ASPIRIN 81 MG CHEWABLE TABLETS PO SCH (10:09)
[2017-07-29] MEDS: NICOTINE 14 MG/24 HOURS TOPICAL PATCH TD SCH (10:10)
[2017-07-29] MEDS: PRENATAL VITAMINS W/ FOLIC ACID TABLET (FP) PO SCH (10:10)
[2017-07-29] MEDS: amLODIPine BESYLATE 10 MG TABLET (FP) PO SCH (10:10)
[2017-07-29] MEDS: CITALOPRAM HYDROBROMIDE 10 MG TABLET (FP) PO SCH (10:10)
[2017-07-29] MEDS: risperiDONE 2 MG TABLET PO SCH (22:01)
[2017-07-29] MEDS: ATORVASTATIN CA 10 MG TABLET (FP) PO SCH (22:01)
[2017-07-29] MEDS: THIAMINE HCL 100 MG TABLET (FP) PO SCH (22:02)
[2017-07-30] MEDS: PRENATAL VITAMINS W/ FOLIC ACID TABLET (FP) PO SCH (10:31)
[2017-07-30] MEDS: ENALAPRIL MALEATE 10 MG TABLET (FP) PO SCH ×2 (10:31→21:10)
[2017-07-30] MEDS: NICOTINE 14 MG/24 HOURS TOPICAL PATCH TD SCH (10:31)
[2017-07-30] MEDS: amLODIPine BESYLATE 10 MG TABLET (FP) PO SCH (10:31)
[2017-07-30] MEDS: ASPIRIN 81 MG CHEWABLE TABLETS PO SCH (10:31)
[2017-07-30] MEDS: CITALOPRAM HYDROBROMIDE 10 MG TABLET (FP) PO SCH (10:31)
[2017-07-30] MEDS: ATORVASTATIN CA 10 MG TABLET (FP) PO SCH (21:10)
[2017-07-30] MEDS: risperiDONE 2 MG TABLET PO SCH (21:10)
[2017-07-30] MEDS: diphenhydrAMINE HCL 50 MG CAPSULE PO PRN (21:10)
[2017-07-30] MEDS: THIAMINE HCL 100 MG TABLET (FP) PO SCH (21:10)
[2017-07-31] MEDS: ASPIRIN 81 MG CHEWABLE TABLETS PO SCH (10:29)
[2017-07-31] MEDS: CITALOPRAM HYDROBROMIDE 10 MG TABLET (FP) PO SCH (10:29)
[2017-07-31] MEDS: PRENATAL VITAMINS W/ FOLIC ACID TABLET (FP) PO SCH (10:29)
[2017-07-31] MEDS: ENALAPRIL MALEATE 10 MG TABLET (FP) PO SCH ×2 (10:29→22:00)
[2017-07-31] MEDS: amLODIPine BESYLATE 10 MG TABLET (FP) PO SCH (10:30)
[2017-07-31] MEDS: NICOTINE 14 MG/24 HOURS TOPICAL PATCH TD SCH (10:30)
--- NOTE | 2017-07-31 11:58 | PN ---
Psychiatric Progress Note Vital Signs: Vital Signs Period Temp Pulse Resp BP Sys/Traylor Pulse Ox Last 24 Hr 98.1 F 74-84 20-20 133-151/82-88 Date of Session: 07/31/17 Chief Complaint:: Discharge Note HPI: Patient addressing Alcohol, Cocaine and Sedative Dependence comorbid with Bipolar Disorder and Substance-Induced Sleep Disorder Current Medications: Active Medications Generic Name Dose Route Start Last Admin Trade Name Freq PRN Reason Stop Dose Admin Al Hydroxide/Mg Hydroxide 30 ml 07/20/17 15:41 Mylanta Oral Suspension - PO Q6H PRN DYSPEPSIA Albuterol Sulfate 2 puff 07/20/17 15:42 Ventolin Hfa Inhaler - IH Q4H PRN ASTHMA Amlodipine Besylate 10 mg 07/21/17 10:00 07/31/17 10:30 Norvasc - PO 10 mg DAILY CEM Administration Aspirin 81 mg 07/21/17 10:00 07/31/17 10:29 Asa - PO 81 mg DAILY CEM Administration Atorvastatin Calcium 10 mg 07/20/17 22:00 07/30/17 21:10 Lipitor - PO 10 mg HS CEM Administration Citalopram Hydrobromide 10 mg 07/21/17 12:00 07/31/17 10:29 Celexa - PO 10 mg DAILY CEM Administration Diphenhydramine HCl 50 mg 07/20/17 15:41 07/30/17 21:10 Benadryl - PO 50 mg HSMR1 PRN Administration FOR ITCHING Enalapril Maleate 10 mg 07/20/17 22:00 07/31/17 10:29 Vasotec - PO 10 mg BID CEM Administration Eucalyptus/Menthol/Phenol/Sorbitol 1 each 07/20/17 15:41 Cepastat Lozenge - MM Q4H PRN SORE THROAT Guaifenesin 10 ml 07/20/17 15:41 07/28/17 10:41 Robitussin Dm - PO 10 ml Q6H PRN Administration COUGH Hydrocortisone 1 applic 07/25/17 11:48 07/26/17 10:36 Hytone 1% Cream - TP 1 applic DAILY PRN Administration DRY SKIN Hydroxyzine Pamoate 50 mg 07/20/17 15:41 Vistaril - PO Q4H PRN AGITATION Ibuprofen 400 mg 07/20/17 15:41 07/25/17 10:26 Motrin - PO 400 mg Q6H PRN Administration PAIN Loperamide HCl 4 mg 07/20/17 15:41 Imodium - PO Q6H PRN DIARRHEA Magnesium Hydroxide 30 ml 07/20/17 15:41 Milk Of Magnesia - PO DAILY PRN CONSTIPATION Nicotine 14 mg 07/21/17 10:00 07/31/17 10:30 Nicoderm Patch - TD Not Given DAILY CEM Nicotine Polacrilex 2 mg 07/20/17 15:41 Nicorette Gum - BUC Q2H PRN NICOTINE REPLACEMENT RX Multivit/Folic Acid/Iron 1 tab 07/21/17 10:00 07/31/17 10:29 Vitamins (Sjr) - PO 1 tab DAILY CEM Administration Pseudoephedrine/Triprolidine 1 combo 07/20/17 15:41 Actifed - PO TID PRN NASAL CONGESTION Risperidone 2 mg 07/21/17 22:00 07/30/17 21:10 Risperdal - PO 2 mg HS CEM Administration Thiamine HCl 100 mg 07/20/17 22:00 07/30/17 21:10 Vitamin B1 - PO 100 mg HS CEM Administration Current Side Effect: No Lab tests ordered: Yes Lab tests reviewed: Yes Provider note:: Patient will complete this program on 08/01/17. He has met his treatment goals and will continue to address his issues in outpatient treatment at [facility] at [address] [place] [address]. 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 He said that in this program , he listened to stories of people that have gone through things he does not wish to go through. He realizes that that he has to make his outpatient program works for him in order to attain that goal. He responded well to Celexa 10 mg po daily and Risperdal 2 mg po HS. Scripts for 30 days supply of these medications will be electronically transmitted to [facility] pharmacy at [address] [place] [id number]. He is stable for discharge on 08/01/17 Total face to face time:: 35 Mental Status Exam - Mental Status Exam Alert and Oriented to: Time, Place, Person Cognitive Function: Fair Patient Appearance: Well Groomed Mood: Hopeful, Euthymic Affect: Appropriate Patient Behavior: Cooperative Speech Pattern: Clear Voice Loudness: Normal, Limited Variation Thought Process: Goal Oriented Thought Disorder: Not Present Hallucinations: Denies Suicidal Ideation: Denies Homicidal Ideation: Denies Insight/Judgement: Fair Sleep: Fair Appetite: Good Muscle strength/Tone: Normal Gait/Station: Normal Psychiatric Treatment Plan - Problem List (1) Alcohol dependence Current Visit: Yes (2) Cocaine dependence Current Visit: No Qualifiers: Substance use status: uncomplicated Qualified Code(s): F14.20 - Cocaine dependence, uncomplicated; F14.20 - Cocaine dependence, uncomplicated; F14.20 - Cocaine dependence, uncomplicated (3) Sedative hypnotic or anxiolytic dependence Current Visit: Yes (4) Bipolar disorder Current Visit: No Comment: By history. (5) Substance-induced sleep disorder Current Visit: No (6) Asthma Current Visit: No Qualifiers: Asthma severity: mild intermittent Asthma complication type: uncomplicated (7) H/O hypercholesterolemia Current Visit: No (8) Hypertension Current Visit: No Qualifiers: Hypertension type: essential hypertension Qualified Code(s): I10 - Essential (primary) hypertension; I10 - Essential (primary) hypertension; I10 - Essential (primary) hypertension (9) PPD positive Current Visit: No (10) PTSD (post-traumatic stress disorder) Current Visit: Yes Initial treatment plan: Patient will be discharged tomorrow and transferred to [facility] for outpatient treatment
[2017-07-31] MEDS: THIAMINE HCL 100 MG TABLET (FP) PO SCH (22:00)
[2017-07-31] MEDS: risperiDONE 2 MG TABLET PO SCH (22:00)
[2017-07-31] MEDS: ATORVASTATIN CA 10 MG TABLET (FP) PO SCH (22:00)
[2017-07-31] MEDS: diphenhydrAMINE HCL 50 MG CAPSULE PO PRN (22:01)
[2017-08-01 06:57] VITALS: BP 135/88; PULSE 77; TEMP 98.3
[2017-08-01] MEDS: PRENATAL VITAMINS W/ FOLIC ACID TABLET (FP) PO SCH (09:36)
[2017-08-01] MEDS: CITALOPRAM HYDROBROMIDE 10 MG TABLET (FP) PO SCH (09:37)
[2017-08-01] MEDS: ASPIRIN 81 MG CHEWABLE TABLETS PO SCH (09:37)
[2017-08-01] MEDS: amLODIPine BESYLATE 10 MG TABLET (FP) PO SCH (09:37)
[2017-08-01] MEDS: NICOTINE 14 MG/24 HOURS TOPICAL PATCH TD SCH (09:37)
[2017-08-01] MEDS: ENALAPRIL MALEATE 10 MG TABLET (FP) PO SCH (09:37)
== END 2017-08-01 10:00 | disposition home or self-care (01) | DRG 772 ==
LOC: YASAS 13:59 → Y3W 14:01
PROVIDERS: ADMIT Psychiatry & Neurology Psychiatry; ATTEND Psychiatry & Neurology Psychiatry
PROC: HZ42ZZZ Group Counseling for Substance Abuse Treatment, Cognitive-Behavioral (ICD-10-PCS; principal; 2017-07-20)
DX: F10.20 Alcohol dependence, uncomplicated (principal); F13.20 Sedative, hypnotic or anxiolytic dependence, uncomplicated; F14.20 Cocaine dependence, uncomplicated; F31.9 Bipolar disorder, unspecified; F19.24 Other psychoactive substance dependence with psychoactive substance-induced mood disorder; F43.10 Post-traumatic stress disorder, unspecified; I10 Essential (primary) hypertension; E78.00 Pure hypercholesterolemia, unspecified; J45.20 Mild intermittent asthma, uncomplicated; R76.11 Nonspecific reaction to tuberculin skin test without active tuberculosis
CPT/HCPCS: 90688; 90732; G0008; G0009

== ENCOUNTER 2019-05-10 12:34 | Inpatient (IN) | payer OTHER ==
[2019-05-10 15:45] VITALS: BMI 36.5
--- NOTE | 2019-05-10 19:25 | HP ---
CIWA Score Nausea/Vomitin (nausea w/ vomiting) Muscle Tremors: 4-Moderate,w/Arms Extend Anxiety: 1-Mildly Anxious Agitation: 1-Slight > Activity Paroxysmal Sweats: 3 (Increased facial moisture) Orientation: 0-Oriented Tacttile Disturbances: 0-None Auditory Disturbances: 0-None Visual Disturbances: 0-None Headache: 0-None Present CIWA-Ar Total Score: 15 - Admission Criteria OASAS Guidelines: Admission for Medically Managed Detox: Requires at least one of the followin. CIWA greater than 12 2. Seizures within the past 24 hours 3. Delirium tremens within the past 24 hours 4. Hallucinations within the past 24 hours 5. Acute intervention needed for co occurring medical disorder 6. Acute intervention needed for co occurring psychiatric disorder 7. Severe withdrawal that cannot be handled at a lower level of care (continued vomiting, continued diarrhea, abnormal vital signs) requiring intravenous medication and/or fluids 8. Patient presents the following: CIWA greater than 12 Admission Criteria Met: Admission criteria met Admission ROS S - [facility] Chief Complaint: Here with alcohol withdrawal. I need to stop using alcohol and cocaine. Allergies/Adverse Reactions: Allergies Allergy/AdvReac Type Severity Reaction Status Date / Time Penicillins Allergy Severe Rash Verified 05/10/19 15:39 methadone Allergy Rash Verified 05/10/19 15:39 History of Present Illness: 64 yo presents w/ alcohol withdrawal and requesting detox. Alcohol use began at age 21. States last drink last night. Current use 1 pt liquor/day. States amt is consistent since age 25. Marijuana use began at age 16. Frequency = every now and then. Cocaine use began at age 30. Nasal. 1 gm/day. Benzo - denies use. Hx: blackouts - last 3 weeks ago Denies overdoses/seizures. Longest sobriety 1 year in 1978. PMHx: HTN; Asthma ( last exacerbation 5 months ago); Increased cholesterol; Heart Murmur; Swollen legs; MHHx: Bipolar. On meds. Last took medications on 05/09/19. Last saw MH Provider 1 month ago. Denies thoughts of harming self or others. Patient Name: Michael Thomas Date: 1955 Address: [address] [place] [address] Sex: Male Rx Written Rx Dispensed Drug Quantity Days Supply Prescriber Name 03/11/2019 03/11/2019 chlordiazepoxide 10 mg capsule 45 3 LauraisaacAndrew MD 01/28/2019 01/28/2019 chlordiazepoxide 10 mg capsule 10 1 LaksAndrew MD 01/22/2019 01/22/2019 chlordiazepoxide 10 mg capsule 45 3 LakisaacAndrew MD 11/02/2018 11/02/2018 chlordiazepoxide 10 mg capsule 40 3 Andrew Reardon MD Patient Name: Michael Thomas Date: 1955 Address: [address] [place] [address] Sex: Male Rx Written Rx Dispensed Drug Quantity Days Supply Prescriber Name 06/20/2018 06/20/2018 oxycodone-acetaminophen 10-325 mg tab 90 30 William Byrne MD 06/06/2018 06/06/2018 oxycodone-acetaminophen 10-325 mg tab 45 15 Chica Su ([employer]CH[employer]ER-) Search Terms: Michael Thomas, 1955 Search Date: 05/10/2019 07:23:03 PM States Searched: [place], [place], [place], [place], [place], [place], [place], [place] The Drug Utilization Report below displays the controlled substance prescriptions, if any, that were dispensed in the indicated state(s). The information displayed on this report is compiled from requests submitted to other states' PMPs, and accurately reflects the information as returned by them. Blank alvarez indicate data not provided by other state. This report was requested by: Angela Moyer | Reference #: [id number] Exam Limitations: No Limitations - Ebola screening Have you traveled outside of the country in the last 21 days: No (N) Have you had contact with anyone from an Ebola affected area: No Have you been sick,other than usual withdrawal symptoms: No (Denies recent exposure to measles) Do you have a fever: No - Review of Systems Constitutional: Diaphoresis, Changes in sleep (Difficulty falling asleep - takes Seroquel) EENT: reports: Blurred Vision, Dental Problems (Partial dentures. Chews and swallows ok.) Respiratory: reports: No Symptoms reported Cardiac: reports: No Symptoms Reported, Other (Hx: Murmur) GI: reports: Nausea, Vomiting (Vomiting up liquids) : reports: No Symptoms Reported Musculoskeletal: reports: Back Pain (Chronic LBP. Pain is throbbing is "8". Increases w/ sitting too long/standing or walking. Improves sitting for short periods or laying down.) Integumentary: reports: No Symptoms Reported Neuro: reports: Tremors Endocrine: reports: Intolerance to Cold Hematology: reports: No Symptoms Reported Psychiatric: reports: Judgement Intact, Orientated x3, Agitated, Anxious, Depressed (Bi-polar: Denies thoughts of harming self or others.) Patient History - Patient Medical History Hx Anemia: No Hx Asthma: Yes Hx Chronic Obstructive Pulmonary Disease (COPD): No Hx Cancer: No Hx Cardiac Disorders: No Hx Congestive Heart Failure: No Hx Hypertension: Yes Hx Hypercholesterolemia: Yes (crestor) Hx Pacemaker: No HX Cerebrovascular Accident: No Hx Seizures: No Hx Dementia: No Hx Diabetes: No Hx Gastrointestinal Disorders: No Hx Liver Disease: No Hx Genitourinary Disorders: No Hx Sexually Transmitted Disorders: No Hx Renal Disease (ESRD): No Hx Thyroid Disease: No Hx Human Immunodeficiency Virus (HIV): No Hx Hepatitis C: No Hx Depression: Yes Hx Suicide Attempt: No Hx Bipolar Disorder: Yes (hospitalized, seroquel, abilify) Hx Schizophrenia: No - Patient Surgical History Past Surgical History: Yes Hx Neurologic Surgery: No Hx Cataract Extraction: No Hx Cardiac Surgery: No Hx Lung Surgery: No Hx Breast Surgery: No Hx Breast Biopsy: No Hx Abdominal Surgery: No Hx Appendectomy: Yes (1979) Hx Cholecystectomy: No Hx Genitourinary Surgery: Yes (SURGERY FOR PROSTRATE IN 2012 TURP) Hx Section: No Hx Orthopedic Surgery: No Anesthesia Reaction: No - PPD History Previous Implant?: Yes Documented Results: Positive w/proof Implanted On Prior [facility] Admission?: Yes Date: 11/30/13 Results: 10 mm PPD to be Administered?: No - Smoking Cessation Smoking history: Never smoked Have you smoked in the past 12 months: No Cigars Per Day: 0 Hx Chewing Tobacco Use: No Initiated information on smoking cessation: No - Substance & Tx. History Hx Alcohol Use: Yes Hx Substance Use: Yes Substance Use Type: Alcohol, Cocaine Hx Substance Use Treatment: Yes (detox, rehab) - Substances abused Alcohol Other (specify): Vodka Substance route: Oral Frequency: Daily Amount used: 1 pint Age of first use: 21 Date of last use: 05/10/19 Cocaine Substance route: Inhalation Frequency: 1-2 times per week Amount used: 1 gram Age of first use: 30 Date of last use: 05/09/19 Family Disease History - Family Disease History Family Disease History: Diabetes: Grandparent, Heart Disease: Mother (HTN) Admission Physical Exam [facility] - Vital Signs Vital Signs: Vital Signs - 24 hr 05/10/19 15:36 Temperature 96.6 F L Pulse Rate 73 Respiratory 18 Rate Blood Pressure 147/92 - Physical General Appearance: Yes: Nourished, Mild Distress, Tremorous, Sweating ( Increased facial moisture), Anxious HEENTM: Yes: Normal ENT Inspection, Normocephalic, Normal Voice, MATT, Pharynx Normal Respiratory: Yes: Lungs Clear (O2 Sta = 97 %), Normal Breath Sounds, No Respiratory Distress Neck: Yes: No masses,lesions,Nodules, Supple Breast: Yes: Breast Exam Deferred Cardiology: Yes: Regular Rhythm, Regular Rate (HR: 72), S1, S2, Murmur Abdominal: Yes: Non Tender, Soft, Increased Bowel Sounds, Protuberent ( Increased abdominal adiposity) Genitourinary: Yes: Within Normal Limits Back: Yes: Normal Inspection Musculoskeletal: Yes: full range of Motion, Gait Steady Extremities: Yes: Normal Capillary Refill, Tremors, Swelling (Bilateral LE edema equal from ankles to below knee;) Neurological: Yes: director of student affairs II-XII NML intact, Fully Oriented, Alert, Motor Strength 5/5, Normal Response Integumentary: Yes: Normal Color, Warm, Diaphoresis (Increased facial moisture) , Pitting Edema (BLE; mild) Lymphatic: Yes: Within Normal Limits - Diagnostic (1) History of positive PPD Current Visit: Yes Status: Chronic (2) History of asthma Current Visit: Yes Status: Chronic (3) Alcohol dependence with uncomplicated withdrawal Current Visit: Yes Status: Acute (4) Cocaine dependence Current Visit: Yes Status: Chronic Qualifiers: Substance use status: uncomplicated Qualified Code(s): F14.20 - Cocaine dependence, uncomplicated (5) H/O hypercholesterolemia Current Visit: Yes Status: Chronic (6) Hypertension Current Visit: Yes Status: Chronic Qualifiers: Hypertension type: essential hypertension Qualified Code(s): I10 - Essential (primary) hypertension (7) Edema Current Visit: Yes Status: Chronic Qualifiers: Edema type: unspecified Qualified Code(s): R60.9 - Edema, unspecified Comment: BLE Ankles to below knee (8) Murmur, cardiac Current Visit: Yes Status: Chronic Cleared for Admission [facility] - Detox or Rehab [facility] Level of Care: Medically Managed Detox Regimen/Protocol: Librium Claeared for Rehab Admission: No Breathalyzer - Breathalyzer Breathalyzer: 0 Urine Drug Screen - Test Device Lot number: [id number] Expiration date: 02/05/21 - Control Is test valid?: Yes - Results Drug screen NEGATIVE: No Urine drug screen results: THC-Marijuana, EWELINA-Cocaine, BZO-Benzodiazepines Inpatient Rehab Admission - Rehab Decision to Admit Inpatient rehab admission?: No
[2019-05-10] MEDS ORDERED: MAGNESIUM HYDROX 2400MG/30ML ORAL SUSPENSION 30 ML CUP PO PRN (19:50)
[2019-05-10] MEDS ORDERED: IBUPROFEN 400 MG TABLET (FP) PO PRN (19:50)
[2019-05-10] MEDS ORDERED: chlordiazePOXIDE HCL 25 MG CAPSULE PO PRN (19:50)
[2019-05-10] MEDS ORDERED: METHOCARBAMOL 500 MG TABLET PO PRN (19:50)
[2019-05-10] MEDS ORDERED: MELATONIN 5 MG TABLETS PO PRN (19:50)
[2019-05-10] MEDS ORDERED: MAGNESIUM CITRATE 300 ML BOTTLE PO PRN (19:50)
[2019-05-10] MEDS ORDERED: ACETAMINOPHEN 325 MG TABLET (FP) PO PRN ×2 (19:50)
[2019-05-10] MEDS ORDERED: BISMUTH SUBSALICYLATE 524 MG/30 ML UD PO PRN (19:50)
[2019-05-10] MEDS ORDERED: MENTHOL/PHENOL 1 EACH UD MM PRN (19:50)
[2019-05-10] MEDS ORDERED: MAG HYDROX/AL HYDROX/SIMETH 30 ML UNIT-DOSE CUP PO PRN (19:50)
[2019-05-10] MEDS: ATORVASTATIN CA 10 MG TABLET (FP) PO SCH (22:42)
[2019-05-10] MEDS: THIAMINE HCL 100 MG TABLET (FP) PO SCH (22:42)
[2019-05-10] MEDS: ENALAPRIL MALEATE 10 MG TABLET (FP) PO SCH (22:42)
[2019-05-10] MEDS: chlordiazePOXIDE HCL 25 MG CAPSULE PO SCH (22:42)
[2019-05-11] MEDS: chlordiazePOXIDE HCL 25 MG CAPSULE PO SCH ×4 (06:04→22:09)
--- NOTE | 2019-05-11 09:43 | PN ---
S CIWA - CIWA Score Nausea/Vomitin-No Nausea/No Vomiting Muscle Tremors: 2 Anxiety: 2 Agitation: 0-Normal Activity Paroxysmal Sweats: 5 Orientation: 0-Oriented Tacttile Disturbances: 0-None Auditory Disturbances: 0-None Visual Disturbances: 0-None Headache: 2-Mild CIWA-Ar Total Score: 11 BHS Progress Note (SOAP) Subjective: c/o muscle pain, sweats, and anxiety. Objective: 05/11/19 09:42 Vital Signs 05/11/19 05/11/19 05/11/19 03:30 06:14 09:27 Temperature 97.7 F 98.1 F Pulse Rate 81 64 68 Respiratory 18 18 18 Rate Blood Pressure 108/74 113/61 Labs pending. Assessment: 05/11/19 09:42 AOX3, in no acute distress. Full ROM, ambulating in the unit. Withdrawal symptoms. Plan: continue detox.
[2019-05-11] MEDS: PRENATAL VITAMINS W/ FOLIC ACID TABLET (FP) PO SCH (10:10)
[2019-05-11] MEDS: ASPIRIN 81 MG CHEWABLE TABLETS PO SCH (10:10)
[2019-05-11] MEDS: amLODIPine BESYLATE 10 MG TABLET (FP) PO SCH (10:10)
[2019-05-11] MEDS: ENALAPRIL MALEATE 10 MG TABLET (FP) PO SCH ×2 (10:12→22:09)
[2019-05-11 10:55] LABS: HEMATOCRIT 37.7 % (35.4-49); HEMOGLOBIN 12.7 GM/dL (11.7-16.9); MCH 30.9 pg (25.7-33.7); MCHC 33.8 g/dl (32.0-35.9); MEAN CELL VOLUME 91.4 fl (80-96); MEAN PLT VOLUME 8.5 fl (7.5-11.1); PLATELET COUNT 294 K/MM3 (134-434); RBC 4.12 M/mm3 (4.00-5.60); RDW 14.1 % (11.9-15.9); WHITE BLOOD COUNT 7.7 K/mm3 (4.0-10.0)
[2019-05-11 11:02] LABS: ALBUMIN 3.1 g/dl (3.4-5.0); BILIRUBIN,TOTAL 0.5 mg/dL (0.2-1); BLOOD UREA NITROGEN 13.8 mg/dL (7-18); CALCIUM 8.8 mg/dL (8.5-10.1); POTASSIUM 3.4 mmol/L (3.5-5.1); TOT PROT 6.7 g/dl (6.4-8.2)
--- NOTE | 2019-05-11 13:51 | CONSULT ---
[facility] Psychiatric Consult - Data Date of interview: 05/11/19 Admission source: [facility] Identifying data: This is one of multiple admissions to [facility] for this 64 y/ o AA male self-referred for detoxification (alcohol, cannabis, cocaine). Examined on . Patient is , a father of three, domiciled, unemployed and supported on SSI benefits. Substance Abuse History: Confirmed by patient in my interview. Describes current [facility] report on his addictions as accurate : Smoking history: Never smoked. Have you smoked in the past 12 months: No. Cigars Per Day: 0. Hx Chewing Tobacco Use: No. Initiated information on smoking cessation: No. - Substance & Tx. History. Hx Alcohol Use: Yes. Hx Substance Use: Yes. Substance Use Type: Alcohol, Cocaine. Hx Substance Use Treatment: Yes (detox, rehab). - Substances abused. Alcohol. Other (specify): Vodka. Substance route: Oral. Frequency: Daily. Amount used: 1 pint. Age of first use: 21. Date of last use: 05/10/19. Cocaine. Substance route: Inhalation. Frequency: 1-2 times per week. Amount used: 1 gram. Age of first use: 30. Date of last use: 05/09/19 Medical History: Medical profile is significant for heart murmur, dyslipidemia, bronchial asthma, hypertension, chronic lumbar pain, arthritis, benign prostatic hyperplasia (BPH) and a history of surgeries (prostatectomy/TURP procedure in 2012) + appendectomy (1979). Psychiatric History: Patient is a versatile and questionable historian. In this interview, he denies any history of psychiatric hospitalizations (against previous self-reports on record at [facility]). Mr Thomas is already known for a history of multiple psychiatric hospitalizations : [facility] (1989'), [facility] (1999) and [facility] (2006). Diagnosed with Bipolar Disorder. Patient states that he gets psychiatric outpatient services at the [facility] clinic in [facility]. Managed with a regimen of seroquel 300 mg/hs + abilify 20 mg/day (current self-report). Last taken THREE weeks ago. Patient denies history of suicide attempts. Physical/Sexual Abuse/Trauma History: Patient denies history of abuse in this interview. Additional Comment: Urine drug screen results: THC-Marijuana, EWELINA-Cocaine, BZO- Benzodiazepines. Noted. Mental Status Exam - Mental Status Exam Alert and Oriented to: Time, Place, Person Cognitive Function: Good Patient Appearance: Disheveled Mood: Withdrawn, Irritable Affect: Mood Congruent, Constricted Patient Behavior: Fatigued (marginally cooperative) Speech Pattern: Clear, Appropriate Voice Loudness: Normal Thought Process: Goal Oriented Thought Disorder: Not Present Hallucinations: Denies Suicidal Ideation: Denies Homicidal Ideation: Denies Insight/Judgement: Poor Sleep: Poorly, Difficulty falling asleep Appetite: Good Muscle strength/Tone: Normal Gait/Station: Other (not observed ; did not get out of bed for interview) Psychiatric Findings - Problem List ([place] 1, 2,3) (1) Alcohol dependence with uncomplicated withdrawal Current Visit: Yes Status: Acute (2) Cocaine dependence Current Visit: Yes Status: Chronic Qualifiers: Substance use status: uncomplicated Qualified Code(s): F14.20 - Cocaine dependence, uncomplicated (3) Cannabis use disorder, mild, abuse Current Visit: Yes Status: Chronic (4) Substance induced mood disorder Current Visit: Yes Status: Chronic (5) History of bipolar disorder Current Visit: Yes Status: Chronic (6) Insomnia Current Visit: Yes Status: Chronic (7) Non-compliance Current Visit: Yes Status: Chronic - Initial Treatment Plan Initial Treatment Plan: Psychoeducation. Sleep hygiene. Detoxification in progress. AA meetings. Contact made with pharmacist at [phone] / [id number] : last refill for seroquel 200 mg /hs was on 03/04/19 + abilify 10 mg/day on 01/24/19. Clear indication of patient's unreliability. Mr Thomas insists, however, on resuming both medications. Side effects/benefits discussed with patient. Resumed as : seroquel 100 mg po hs + abilify 2 mg po daily. Patient is in agreement with this plan of care. Gave verbal consent to MD. Diamond.
[2019-05-11] MEDS: QUEtiapine FUMARATE 100 MG TABLET (FP) PO SCH (22:09)
[2019-05-11] MEDS: THIAMINE HCL 100 MG TABLET (FP) PO SCH (22:09)
[2019-05-11] MEDS: ATORVASTATIN CA 10 MG TABLET (FP) PO SCH (22:09)
[2019-05-12] MEDS: chlordiazePOXIDE HCL 25 MG CAPSULE PO SCH ×3 (05:52→18:08)
--- NOTE | 2019-05-12 09:17 | EKG ---
Test Reason : Blood Pressure : / mmHG Vent. Rate : 068 BPM Atrial Rate : 068 BPM P-R Int : 192 ms QRS Dur : 086 ms QT Int : 442 ms P-R-T Axes : 046 045 035 degrees QTc Int : 469 ms NORMAL SINUS RHYTHM NORMAL ECG WHEN COMPARED WITH ECG OF 16-JUL-2017 12:35, NO SIGNIFICANT CHANGE WAS FOUND Confirmed by MEGAN CROWELL MD ([id number]) on 05/12/2019 9:17:36 AM Referred By: Confirmed By:MEGAN CROWELL MD
[2019-05-12] MEDS: PRENATAL VITAMINS W/ FOLIC ACID TABLET (FP) PO SCH (10:27)
[2019-05-12] MEDS: amLODIPine BESYLATE 10 MG TABLET (FP) PO SCH (10:27)
[2019-05-12] MEDS: ASPIRIN 81 MG CHEWABLE TABLETS PO SCH (10:27)
[2019-05-12] MEDS: ENALAPRIL MALEATE 10 MG TABLET (FP) PO SCH ×2 (10:27→22:35)
--- NOTE | 2019-05-12 14:11 | PN ---
[facility] CIWA - CIWA Score Nausea/Vomitin-Mild Nausea/No Vomiting Muscle Tremors: 3 Anxiety: 3 Agitation: 2 Paroxysmal Sweats: 3 Orientation: 0-Oriented Tacttile Disturbances: 0-None Auditory Disturbances: 0-None Visual Disturbances: 0-None Headache: 0-None Present CIWA-Ar Total Score: 12 S Progress Note (SOAP) Subjective: Chills, sweating, tremor, nausea Objective: 05/12/19 14:08 Last Vital Signs Temp Pulse Resp BP Pulse Ox 98.1 F 79 16 119/76 05/12/19 13:26 05/12/19 13:26 05/12/19 13:26 05/12/19 13:26 Laboratory Tests 05/11/19 05/11/19 05/11/19 07:30 07:30 07:30 WBC 7.7 RBC 4.12 Hgb 12.7 Hct 37.7 MCV 91.4 MCH 30.9 MCHC 33.8 RDW 14.1 Plt Count 294 D MPV 8.5 Sodium 143 Potassium 3.4 L Chloride 109 H Carbon Dioxide 28 Anion Gap 7 L BUN 13.8 Creatinine 1.0 Est GFR (CKD-EPI)AfAm 91.78 Est GFR (CKD-EPI)NonAf 79.19 Random Glucose 111 H Calcium 8.8 Total Bilirubin 0.5 AST 19 ALT 33 Alkaline Phosphatase 116 Total Protein 6.7 Albumin 3.1 L RPR Titer Nonreactive Labs reviewed: K 3.4 and gluc 111 Assessment: 05/12/19 14:09 Withdrawal sxs Noted with hypokalemia and mild hyperglycemia Plan: Continue detox Encouraged PO water hydration Hypokalemia: K DUR 40Meq PO x 2 doses (at least 4 hours apart), repeat serum K level in AM Mild hyperglycemia: most likely r/t withdrawal, repeat fasting glucose level in AM
[2019-05-12] MEDS ORDERED: POTASSIUM CHLORIDE TABS 20 MEQ TABLET.ER (FP) PO ONE ×2 (14:14→20:00)
[2019-05-12] MEDS: ARIPiprazole 2 MG TABLET PO SCH (15:07)
[2019-05-12] MEDS: QUEtiapine FUMARATE 100 MG TABLET (FP) PO SCH (22:13)
[2019-05-12] MEDS: THIAMINE HCL 100 MG TABLET (FP) PO SCH (22:13)
[2019-05-12] MEDS: ATORVASTATIN CA 10 MG TABLET (FP) PO SCH (22:13)
[2019-05-12] MEDS ORDERED: chlordiazePOXIDE 5 MG CAPSULE PO SCH (23:00)
[2019-05-13] MEDS ORDERED: chlordiazePOXIDE HCL 10 MG CAPSULE PO PRN
[2019-05-13] MEDS ORDERED: chlordiazePOXIDE 5 MG CAPSULE ONE ×4 (05:10→21:45)
[2019-05-13] MEDS ORDERED: chlordiazePOXIDE 5 MG CAPSULE PO ONE (05:45)
[2019-05-13] MEDS: chlordiazePOXIDE HCL 10 MG CAPSULE PO SCH ×4 (06:02→22:14)
[2019-05-13] MEDS: ASPIRIN 81 MG CHEWABLE TABLETS PO SCH (10:44)
[2019-05-13] MEDS: amLODIPine BESYLATE 10 MG TABLET (FP) PO SCH (10:45)
[2019-05-13] MEDS: PRENATAL VITAMINS W/ FOLIC ACID TABLET (FP) PO SCH (10:46)
[2019-05-13] MEDS: ENALAPRIL MALEATE 10 MG TABLET (FP) PO SCH ×2 (10:47→22:13)
[2019-05-13 10:57] LABS: URINE APPEARANCE CLEAR; URINE BILIRUBIN NEGATIVE (NEGATIVE); URINE COLOR YELLOW; URINE GLUCOSE (UA) NEGATIVE (NEGATIVE); URINE KETONE NEGATIVE (NEGATIVE); URINE LEUK ESTERASE NEGATIVE (NEGATIVE); URINE NITRITE NEGATIVE (NEGATIVE); URINE PROTEIN NEGATIVE (NEGATIVE); URINE UROBILINOGEN 0.2 mg/dL (0.2-1.0)
[2019-05-13 11:05] LABS: POTASSIUM 3.7 mmol/L (3.5-5.1)
--- NOTE | 2019-05-13 13:40 | PN ---
S CIWA - CIWA Score Nausea/Vomitin-Mild Nausea/No Vomiting Muscle Tremors: 3 Anxiety: 2 Agitation: 1-Slight > Activity Paroxysmal Sweats: 2 Orientation: 0-Oriented Tacttile Disturbances: 0-None Auditory Disturbances: 0-None Visual Disturbances: 0-None Headache: 0-None Present CIWA-Ar Total Score: 9 BHS Progress Note (SOAP) Subjective: Chills, Tremors, Anxious, Sweating. Objective: PATIENT A & O X 3. IN NO ACUTE DISTRESS. 05/13/19 13:41 Vital Signs Temperature 97.9 F 05/13/19 13:05 Pulse Rate 87 05/13/19 13:05 Respiratory Rate 18 05/13/19 13:05 Blood Pressure 141/93 05/13/19 13:05 O2 Sat by Pulse Oximetry (%) Laboratory Tests 05/11/19 05/11/19 05/11/19 07:30 07:30 07:30 WBC 7.7 RBC 4.12 Hgb 12.7 Hct 37.7 MCV 91.4 MCH 30.9 MCHC 33.8 RDW 14.1 Plt Count 294 D MPV 8.5 Sodium 143 Potassium 3.4 L Chloride 109 H Carbon Dioxide 28 Anion Gap 7 L BUN 13.8 Creatinine 1.0 Est GFR (CKD-EPI)AfAm 91.78 Est GFR (CKD-EPI)NonAf 79.19 Random Glucose 111 H Fasting Glucose Calcium 8.8 Total Bilirubin 0.5 AST 19 ALT 33 Alkaline Phosphatase 116 Total Protein 6.7 Albumin 3.1 L Urine Color Urine Appearance Urine pH Ur Specific [place] Urine Protein Urine Glucose (UA) Urine Ketones Urine Blood Urine Nitrite Urine Bilirubin Urine Urobilinogen Ur Leukocyte Esterase RPR Titer Nonreactive 05/13/19 05/13/19 07:00 08:25 WBC RBC Hgb Hct MCV MCH MCHC RDW Plt Count MPV Sodium Potassium 3.7 Chloride Carbon Dioxide Anion Gap BUN Creatinine Est GFR (CKD-EPI)AfAm Est GFR (CKD-EPI)NonAf Random Glucose Fasting Glucose 116 H Calcium Total Bilirubin AST ALT Alkaline Phosphatase Total Protein Albumin Urine Color Yellow Urine Appearance Clear Urine pH 7.0 Ur Specific [place] 1.007 L Urine Protein Negative Urine Glucose (UA) Negative Urine Ketones Negative Urine Blood Negative Urine Nitrite Negative Urine Bilirubin Negative Urine Urobilinogen 0.2 Ur Leukocyte Esterase Negative RPR Titer LABS NOTED. RESULTS OF REPEAT POTASSIUM LEVEL AND OF FASTING GLUCOSE LEVEL NOTED. POTASSIUM LEVEL NOW NOTED TO BE WITHIN NORMAL RANGE. FASTING GLUCOSE LEVEL NOTED TO BE ELEVATED. 05/13/19 13:42 Assessment: 05/13/19 13:44 WITHDRAWAL SYMPTOMS. HYPERGLYCEMIA. Plan: CONTINUE DETOX. INCREASE DAILY PO WATER INTAKE. PATIENT ADVISED TO FOLLOW-UP WITH [facility] AFTER DISCHARGE FROM DETOX FOR ELEVATED FASTING GLUCOSE LEVEL NOTED DURING DETOX ADMISSION LABORATORY ASSESSMENT. PATIENT VERBALIZED UNDERSTANDING OF RECOMMENDATION. COPIES OF RESULTS OF ALL LABS DRAWN WHILE ADMITTED FOR DETOX WILL BE GIVEN TO PATIENT AT TIME OF DISCHARGE FROM DETOX UNIT.
[2019-05-13] MEDS: ARIPiprazole 2 MG TABLET PO SCH (14:10)
[2019-05-13] MEDS: THIAMINE HCL 100 MG TABLET (FP) PO SCH (22:13)
[2019-05-13] MEDS: ATORVASTATIN CA 10 MG TABLET (FP) PO SCH (22:13)
[2019-05-13] MEDS: QUEtiapine FUMARATE 100 MG TABLET (FP) PO SCH (22:14)
[2019-05-14] MEDS ORDERED: chlordiazePOXIDE HCL 10 MG CAPSULE PO SCH (05:00)
[2019-05-14] MEDS ORDERED: chlordiazePOXIDE 5 MG CAPSULE ONE (05:36)
[2019-05-14] MEDS: chlordiazePOXIDE HCL 10 MG CAPSULE PO SCH (06:44)
[2019-05-14 09:15] VITALS: TEMP 97.9
--- NOTE | 2019-05-14 09:31 | PN ---
S CIWA - CIWA Score Nausea/Vomitin-Mild Nausea/No Vomiting Muscle Tremors: 1-None Visible, but [place] Anxiety: 2 Agitation: 2 Paroxysmal Sweats: No Perspiration Orientation: 0-Oriented Tacttile Disturbances: 1-Very Mild Itch/Numbness Auditory Disturbances: 0-None Visual Disturbances: 0-None Headache: 2-Mild CIWA-Ar Total Score: 9 BHS Progress Note (SOAP) Subjective: alert,irritable,anxious,interrupted sleep Objective: 05/14/19 09:30 Vital Signs Temperature 97.9 F 05/14/19 09:14 Pulse Rate 95 H 05/14/19 09:14 Respiratory Rate 17 05/14/19 09:14 Blood Pressure 141/79 05/14/19 09:14 O2 Sat by Pulse Oximetry (%) Assessment: 05/14/19 09:30 withdrawal symptom Plan: continue detox librium regimen
[2019-05-14] MEDS: ARIPiprazole 2 MG TABLET PO SCH (11:33)
[2019-05-14] MEDS: ASPIRIN 81 MG CHEWABLE TABLETS PO SCH (11:33)
[2019-05-14] MEDS: ENALAPRIL MALEATE 10 MG TABLET (FP) PO SCH (11:33)
[2019-05-14] MEDS: PRENATAL VITAMINS W/ FOLIC ACID TABLET (FP) PO SCH (11:34)
[2019-05-14] MEDS: amLODIPine BESYLATE 10 MG TABLET (FP) PO SCH (11:34)
[2019-05-14 13:20] VITALS: BP 148/87; PULSE 86
--- NOTE | 2019-05-14 13:30 | PN ---
BHS Progress Note Note: patient is stable for discharge to rehab today
--- NOTE | 2019-05-14 13:36 | DS ---
[facility] Detox Discharge Summary Admission Date: 05/10/19 Discharge Date: 05/14/19 - History Present History: Alcohol Dependence, Cocaine Dependence Additional Comments: follow up with [facility] today as arrangement Pertinent Past History: hypertension hypercholesterolemia asthma positive ppd - Physical Exam Results Vital Signs: Vital Signs Temperature 97.9 F 05/14/19 13:19 Pulse Rate 86 05/14/19 13:19 Respiratory Rate 16 05/14/19 13:19 Blood Pressure 148/87 05/14/19 13:19 O2 Sat by Pulse Oximetry (%) Pertinent Admission Physical Exam Findings: withdrawal symptom Vital Signs Temperature 97.9 F 05/14/19 13:19 Pulse Rate 86 05/14/19 13:19 Respiratory Rate 16 05/14/19 13:19 Blood Pressure 148/87 05/14/19 13:19 O2 Sat by Pulse Oximetry (%) Laboratory Last Values WBC 7.7 K/mm3 (4.0-10.0) 05/11/19 07:30 RBC 4.12 M/mm3 (4.00-5.60) 05/11/19 07:30 Hgb 12.7 GM/dL (11.7-16.9) 05/11/19 07:30 Hct 37.7 % (35.4-49) 05/11/19 07:30 MCV 91.4 fl (80-96) 05/11/19 07:30 MCH 30.9 pg (25.7-33.7) 05/11/19 07:30 MCHC 33.8 g/dl (32.0-35.9) 05/11/19 07:30 RDW 14.1 % (11.9-15.9) 05/11/19 07:30 Plt Count 294 K/MM3 (134-434) D 05/11/19 07:30 MPV 8.5 fl (7.5-11.1) 05/11/19 07:30 Sodium 143 mmol/L (136-145) 05/11/19 07:30 Potassium 3.7 mmol/L (3.5-5.1) 05/13/19 07:00 Chloride 109 mmol/L (98-107) H 05/11/19 07:30 Carbon Dioxide 28 mmol/L (21-32) 05/11/19 07:30 Anion Gap 7 MMOL/L (8-16) L 05/11/19 07:30 BUN 13.8 mg/dL (7-18) 05/11/19 07:30 Creatinine 1.0 mg/dL (0.55-1.3) 05/11/19 07:30 Est GFR (CKD-EPI)AfAm 91.78 05/11/19 07:30 Est GFR (CKD-EPI)NonAf 79.19 05/11/19 07:30 Random Glucose 111 mg/dL (74-106) H 05/11/19 07:30 Fasting Glucose 116 mg/dL (74-106) H 05/13/19 07:00 Calcium 8.8 mg/dL (8.5-10.1) 05/11/19 07:30 Total Bilirubin 0.5 mg/dL (0.2-1) 05/11/19 07:30 AST 19 U/L (15-37) 05/11/19 07:30 ALT 33 U/L (13-61) 05/11/19 07:30 Alkaline Phosphatase 116 U/L (45-117) 05/11/19 07:30 Total Protein 6.7 g/dl (6.4-8.2) 05/11/19 07:30 Albumin 3.1 g/dl (3.4-5.0) L 05/11/19 07:30 Urine Color Yellow 05/13/19 08:25 Urine Appearance Clear 05/13/19 08:25 Urine pH 7.0 (5.0-8.0) 05/13/19 08:25 Ur Specific [place] 1.007 (1.010-1.035) L 05/13/19 08:25 Urine Protein Negative (NEGATIVE) 05/13/19 08:25 Urine Glucose (UA) Negative (NEGATIVE) 05/13/19 08:25 Urine Ketones Negative (NEGATIVE) 05/13/19 08:25 Urine Blood Negative (NEGATIVE) 05/13/19 08:25 Urine Nitrite Negative (NEGATIVE) 05/13/19 08:25 Urine Bilirubin Negative (NEGATIVE) 05/13/19 08:25 Urine Urobilinogen 0.2 mg/dL (0.2-1.0) 05/13/19 08:25 Ur Leukocyte Esterase Negative (NEGATIVE) 05/13/19 08:25 RPR Titer Nonreactive (NONREACTIVE) 05/11/19 07:30 - Treatment Hospital Course: Detox Protocol Followed, Detoxed Safely, Responded well, Discharged Condition Good, Rehab Referral Accepted Patient has Accepted a Re[facility] Referral to: [facility] - Medication Discharge Medications: Ambulatory Orders Mirtazapine [Remeron -] 15 mg PO HS #30 tablet 10/05/16 Risperidone [Risperdal] 2 mg PO HS #30 tablet 12/02/16 Albuterol Sulfate Inhaler - [Ventolin HFA Inhaler -] 2 inh PO Q4H PRN #1 inhaler 07/31/17 Amlodipine Besylate [Norvasc -] 10 mg PO DAILY #30 tablet 07/31/17 Aspirin [ASA -] 81 mg PO DAILY #30 tab.chew 07/31/17 Atorvastatin Ca [Lipitor] 10 mg PO HS #30 tablet 07/31/17 Citalopram Hydrobromide [Celexa -] 10 mg PO DAILY #30 tablet 07/31/17 Enalapril Maleate [Vasotec -] 10 mg PO BID #60 tablet 07/31/17 - Diagnosis (1) Alcohol dependence with uncomplicated withdrawal Current Visit: Yes Status: Acute (2) Cocaine dependence Current Visit: Yes Status: Chronic Qualifiers: Substance use status: uncomplicated Qualified Code(s): F14.20 - Cocaine dependence, uncomplicated (3) H/O hypercholesterolemia Current Visit: Yes Status: Chronic (4) History of asthma Current Visit: Yes Status: Chronic (5) History of bipolar disorder Current Visit: Yes Status: Chronic (6) Hypertension Current Visit: Yes Status: Chronic Qualifiers: Hypertension type: essential hypertension Qualified Code(s): I10 - Essential (primary) hypertension (7) Insomnia Current Visit: No Status: Acute (8) PPD positive Current Visit: No Status: Chronic - AMA Did Patient Leave Against Medical Advice: No
[2019-05-15] MEDS ORDERED: chlordiazePOXIDE HCL 10 MG CAPSULE PO ONE (05:00)
== END 2019-05-14 14:15 | disposition other institution (70) | DRG 774 ==
LOC: YASAS 12:34 → Y6N 20:00
PROVIDERS: ADMIT Surgery; ATTEND Surgery
PROC: HZ2ZZZZ Detoxification Services for Substance Abuse Treatment (ICD-10-PCS; principal; 2019-05-10)
DX: F10.230 Alcohol dependence with withdrawal, uncomplicated (principal); F14.20 Cocaine dependence, uncomplicated; F12.10 Cannabis abuse, uncomplicated; F19.24 Other psychoactive substance dependence with psychoactive substance-induced mood disorder; F31.9 Bipolar disorder, unspecified; I10 Essential (primary) hypertension; G47.00 Insomnia, unspecified; R76.11 Nonspecific reaction to tuberculin skin test without active tuberculosis; R73.9 Hyperglycemia, unspecified; E87.6 Hypokalemia; R01.1 Cardiac murmur, unspecified; J45.909 Unspecified asthma, uncomplicated; E78.00 Pure hypercholesterolemia, unspecified; R60.9 Edema, unspecified; Z91.19 Patient's noncompliance with other medical treatment and regimen; Z88.0 Allergy status to penicillin; Z88.5 Allergy status to narcotic agent
CPT/HCPCS: 36415; 71046-TC-FY; 80053; 81003; 82947; 84132; 85027; 86593; 93005; 93010

== ENCOUNTER 2019-05-14 14:32 | Inpatient (IN) | payer OTHER ==
--- NOTE | 2019-05-14 15:00 | HP ---
[facility] Rehab Assess/Revision - Admission History Admitted to Rehab from: [facility] Date of Admission to Rehab: 05/14/19 - Vital signs Vital Signs: Vital Signs Period Temp Pulse Resp BP Sys/Traylor Pulse Ox Last 24 Hr 98.6 F 89 18 146/88 - Findings Detox History & Physical reviewed: Yes Concur with findings: Yes Comments/Additional Findings: for rehab as protocol Inpatient Rehab Admission - Rehab Decision to Admit Inpatient rehab admission?: Yes - Initial Determination Are CD services needed?: Yes Free of communicable disease: Yes Not in need of hospitalization: Yes - Rehab Admission Criteria Previous failed treatment: Yes Poor recovery environment: Yes Comorbidities: Yes Lacks judgement: No Patient is meeting Inpatient Rehab admission criteria:: Yes
[2019-05-14] MEDS ORDERED: MAGNESIUM HYDROX 2400MG/30ML ORAL SUSPENSION 30 ML CUP PO PRN (15:09)
[2019-05-14] MEDS ORDERED: LOPERAMIDE HCL 2 MG CAPSULE PO PRN (15:09)
[2019-05-14] MEDS ORDERED: MAG HYDROX/AL HYDROX/SIMETH 30 ML UNIT-DOSE CUP PO PRN (15:09)
[2019-05-14] MEDS ORDERED: MAGNESIUM CITRATE 300 ML BOTTLE PO PRN (15:09)
[2019-05-14] MEDS ORDERED: hydrOXYzine PAMOATE 50 MG CAPSULE (FP) PO PRN (15:09)
[2019-05-14] MEDS ORDERED: MENTHOL/PHENOL 1 EACH UD MM PRN (15:09)
[2019-05-14] MEDS ORDERED: P-EPHED 60MG/TRIPROLIDI 2.5MG TABLET PO PRN (15:09)
[2019-05-14] MEDS ORDERED: guaiFENesin 200 MG/10 ML 10 ML UNIT-DOSE CUPS PO PRN (15:09)
[2019-05-14] MEDS ORDERED: ALBUTEROL SO4 8 GM HFA INHALER IH PRN (15:10)
[2019-05-14] MEDS: THIAMINE HCL 100 MG TABLET (FP) PO SCH (21:13)
[2019-05-14] MEDS: ATORVASTATIN CA 10 MG TABLET (FP) PO SCH (21:15)
[2019-05-14] MEDS: ENALAPRIL MALEATE 10 MG TABLET (FP) PO SCH (21:15)
[2019-05-14] MEDS ORDERED: QUEtiapine FUMARATE 100 MG TABLET (FP) PO SCH (22:00)
[2019-05-15] MEDS: PRENATAL VITAMINS W/ FOLIC ACID TABLET (FP) PO SCH (09:53)
[2019-05-15] MEDS: ASPIRIN 81 MG CHEWABLE TABLETS PO SCH (09:53)
[2019-05-15] MEDS: amLODIPine BESYLATE 10 MG TABLET (FP) PO SCH (09:53)
[2019-05-15] MEDS: ENALAPRIL MALEATE 10 MG TABLET (FP) PO SCH ×2 (09:53→21:24)
[2019-05-15] MEDS ORDERED: ARIPiprazole 2 MG TABLET PO SCH (10:00)
--- NOTE | 2019-05-15 14:23 | CONSULT ---
[facility] Psychiatric Consult - Data Date of interview: 05/15/19 Admission source: 6N Identifying data: Mr Thomas is a 64 years old Black male, father of 3 children, unemployed receiving SSI, domiciled seeking rehab treatment for alcohol and cocaine Substance Abuse History: Reports history of alcohol and cocaine use. Refer to addiction counselor's summary for further information Medical History: Significant for heart murmur, dyslipidemia, bronchial asthma, hypertension, chronic lumbar pain, arthritis, benign prostatic hyperplasia (BPH ) and a history of surgeries (prostatectomy/TURP procedure in 2012, appendectomy in 1979). Psychiatric History: Patient was recently seen by Dr Alvarez on 05/11/19 while admitted to detox. Reportedly he is diagnosed with Bipolar Disorder with multiple previous psychiatric hospitalizations at various facilities including [facility] (), [facility] (1999) and [facility] (2006). He reportedly receives outpatient psychiatric services at the [facility] in [facility] and he is prescribed Seroquel 200 mg/hs and Abilify 10 mg/day (current self-report). Claims that he took medications 3 weeks prior to admission to detox. When seen by Dr Alvarez recently in detox, he was prescribed Seoquel 100 mg/hs and Abilify 2 mg/day because Dr Alvarez contact with [phone] revealed that scripts for Seroquel 200 mg/hs was filledon 03/04/19 and Abilify 10 mg/day filled on 01/24/19. Denies previous suicide attempts. At present, denies experiencing psychotic, manic or depressive symptoms, S/H ideations. However reports sleeping poorly. Patient requests to resume taking his medication at the dosage he was taking them prior to his detox admission Physical/Sexual Abuse/Trauma History: Patient denies history of abuse in this interview. Mental Status Exam - Mental Status Exam Alert and Oriented to: Time, Place, Person Cognitive Function: Fair Patient Appearance: Well Groomed Mood: Hopeful, Euthymic Patient Behavior: Cooperative Speech Pattern: Clear Voice Loudness: Normal Thought Process: Intact Thought Disorder: Not Present Hallucinations: Denies Suicidal Ideation: Denies Homicidal Ideation: Denies Insight/Judgement: Poor Sleep: Poorly Appetite: Good Muscle strength/Tone: Normal Gait/Station: Normal Psychiatric Findings - Problem List (Lamar 1, 2,3) (1) Bipolar disorder Current Visit: Yes Status: Chronic (2) Substance-induced sleep disorder Current Visit: Yes Status: Acute (3) Alcohol dependence Current Visit: No Status: Acute (4) Cocaine dependence Current Visit: No Status: Acute Qualifiers: Substance use status: uncomplicated Qualified Code(s): F14.20 - Cocaine dependence, uncomplicated (5) Asthma Current Visit: No Status: Chronic Qualifiers: Asthma severity: mild intermittent Asthma complication type: uncomplicated (6) HLD (hyperlipidemia) Current Visit: Yes Status: Chronic (7) HTN (hypertension) Current Visit: Yes Status: Chronic (8) Heart murmur Current Visit: Yes Status: Chronic (9) PPD positive Current Visit: Yes Status: Chronic (10) BPH (benign prostatic hyperplasia) Current Visit: Yes Status: Chronic - Initial Treatment Plan Initial Treatment Plan: 1) Start Seroquel 200 mg po HS and Abilify 10 mg po daily. 2) Continue inpatient detoxification
[2019-05-15] MEDS: ATORVASTATIN CA 10 MG TABLET (FP) PO SCH (21:24)
[2019-05-15] MEDS: THIAMINE HCL 100 MG TABLET (FP) PO SCH (21:25)
[2019-05-15] MEDS: QUEtiapine FUMARATE 200 MG TABLET PO SCH (21:26)
[2019-05-16] MEDS: ENALAPRIL MALEATE 10 MG TABLET (FP) PO SCH ×2 (09:56→21:22)
[2019-05-16] MEDS: PRENATAL VITAMINS W/ FOLIC ACID TABLET (FP) PO SCH (09:56)
[2019-05-16] MEDS: ASPIRIN 81 MG CHEWABLE TABLETS PO SCH (09:56)
[2019-05-16] MEDS: ARIPiprazole 10 MG TABLET PO SCH (09:56)
[2019-05-16] MEDS: amLODIPine BESYLATE 10 MG TABLET (FP) PO SCH (09:56)
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
[2019-05-16] MEDS: THIAMINE HCL 100 MG TABLET (FP) PO SCH (21:22)
[2019-05-16] MEDS: QUEtiapine FUMARATE 200 MG TABLET PO SCH (21:22)
[2019-05-16] MEDS: ATORVASTATIN CA 10 MG TABLET (FP) PO SCH (21:22)
[2019-05-16] MEDS: BACITRACIN 15 GM TUBE TOPICAL OINTMENT TP SCH (21:23)
[2019-05-17 07:13] VITALS: BMI 34.0
[2019-05-17] MEDS: ARIPiprazole 10 MG TABLET PO SCH (09:59)
[2019-05-17] MEDS: ASPIRIN 81 MG CHEWABLE TABLETS PO SCH (09:59)
[2019-05-17] MEDS: BACITRACIN 15 GM TUBE TOPICAL OINTMENT TP SCH ×2 (10:00→22:39)
[2019-05-17] MEDS: PRENATAL VITAMINS W/ FOLIC ACID TABLET (FP) PO SCH (10:00)
[2019-05-17] MEDS: ENALAPRIL MALEATE 10 MG TABLET (FP) PO SCH ×2 (10:00→22:01)
[2019-05-17] MEDS: amLODIPine BESYLATE 10 MG TABLET (FP) PO SCH (10:00)
[2019-05-17] MEDS: ATORVASTATIN CA 10 MG TABLET (FP) PO SCH (22:01)
[2019-05-17] MEDS: THIAMINE HCL 100 MG TABLET (FP) PO SCH (22:01)
[2019-05-17] MEDS: QUEtiapine FUMARATE 200 MG TABLET PO SCH (22:01)
[2019-05-18] MEDS: ENALAPRIL MALEATE 10 MG TABLET (FP) PO SCH ×2 (10:46→21:16)
[2019-05-18] MEDS: ASPIRIN 81 MG CHEWABLE TABLETS PO SCH (10:46)
[2019-05-18] MEDS: amLODIPine BESYLATE 10 MG TABLET (FP) PO SCH (10:46)
[2019-05-18] MEDS: PRENATAL VITAMINS W/ FOLIC ACID TABLET (FP) PO SCH (10:46)
[2019-05-18] MEDS: BACITRACIN 15 GM TUBE TOPICAL OINTMENT TP SCH ×2 (10:49→21:17)
[2019-05-18] MEDS: ARIPiprazole 10 MG TABLET PO SCH (10:50)
[2019-05-18] MEDS: THIAMINE HCL 100 MG TABLET (FP) PO SCH (21:16)
[2019-05-18] MEDS: ATORVASTATIN CA 10 MG TABLET (FP) PO SCH (21:16)
[2019-05-18] MEDS: QUEtiapine FUMARATE 200 MG TABLET PO SCH (21:16)
[2019-05-19] MEDS: ARIPiprazole 10 MG TABLET PO SCH (10:03)
[2019-05-19] MEDS: ENALAPRIL MALEATE 10 MG TABLET (FP) PO SCH ×2 (10:03→21:12)
[2019-05-19] MEDS: ASPIRIN 81 MG CHEWABLE TABLETS PO SCH (10:03)
[2019-05-19] MEDS: amLODIPine BESYLATE 10 MG TABLET (FP) PO SCH (10:03)
[2019-05-19] MEDS: PRENATAL VITAMINS W/ FOLIC ACID TABLET (FP) PO SCH (10:04)
[2019-05-19] MEDS: BACITRACIN 15 GM TUBE TOPICAL OINTMENT TP SCH ×2 (10:05→21:12)
[2019-05-19] MEDS: THIAMINE HCL 100 MG TABLET (FP) PO SCH (21:12)
[2019-05-19] MEDS: ATORVASTATIN CA 10 MG TABLET (FP) PO SCH (21:12)
[2019-05-19] MEDS: QUEtiapine FUMARATE 200 MG TABLET PO SCH (21:12)
[2019-05-20] MEDS: ARIPiprazole 10 MG TABLET PO SCH (09:59)
[2019-05-20] MEDS: ASPIRIN 81 MG CHEWABLE TABLETS PO SCH (09:59)
[2019-05-20] MEDS: PRENATAL VITAMINS W/ FOLIC ACID TABLET (FP) PO SCH (09:59)
[2019-05-20] MEDS: BACITRACIN 15 GM TUBE TOPICAL OINTMENT TP SCH ×2 (09:59→21:17)
[2019-05-20] MEDS: amLODIPine BESYLATE 10 MG TABLET (FP) PO SCH (09:59)
[2019-05-20] MEDS: ENALAPRIL MALEATE 10 MG TABLET (FP) PO SCH ×2 (10:01→21:17)
[2019-05-20] MEDS: IBUPROFEN 400 MG TABLET (FP) PO PRN (10:01)
--- NOTE | 2019-05-20 11:57 | PN ---
S Progress Note Note: Pt requesting to see the psych MD for medication management. Reports anxiety and insomnia and wants to be comfortable on his psych meds. Currently on Seroquel 200 mg hs and Abilify 10 mg daily. Pt also c/o back pain and was given motrin with good effect. Alert o x 3. Denies. Vital Signs - 24 hr 05/19/19 05/20/19 05/20/19 21:00 00:30 03:30 Temperature Pulse Rate 79 Respiratory 18 18 18 Rate Blood Pressure 145/99 05/20/19 05/20/19 06:35 10:00 Temperature 97.9 F Pulse Rate 75 86 Respiratory 17 Rate Blood Pressure 134/84 139/87 plan:psych re-eval consult ordered.
[2019-05-20] MEDS: THIAMINE HCL 100 MG TABLET (FP) PO SCH (21:17)
[2019-05-20] MEDS: QUEtiapine FUMARATE 200 MG TABLET PO SCH (21:18)
[2019-05-20] MEDS: ATORVASTATIN CA 10 MG TABLET (FP) PO SCH (21:18)
[2019-05-21] MEDS: amLODIPine BESYLATE 10 MG TABLET (FP) PO SCH (10:04)
[2019-05-21] MEDS: ARIPiprazole 10 MG TABLET PO SCH (10:04)
[2019-05-21] MEDS: ENALAPRIL MALEATE 10 MG TABLET (FP) PO SCH ×2 (10:04→21:40)
[2019-05-21] MEDS: PRENATAL VITAMINS W/ FOLIC ACID TABLET (FP) PO SCH (10:04)
[2019-05-21] MEDS: ASPIRIN 81 MG CHEWABLE TABLETS PO SCH (10:05)
[2019-05-21] MEDS: IBUPROFEN 400 MG TABLET (FP) PO PRN (10:05)
[2019-05-21] MEDS: BACITRACIN 15 GM TUBE TOPICAL OINTMENT TP SCH ×2 (10:05→21:41)
[2019-05-21] MEDS: QUEtiapine FUMARATE 200 MG TABLET PO SCH (21:40)
[2019-05-21] MEDS: MELATONIN 5 MG TABLETS PO PRN (21:40)
[2019-05-21] MEDS: THIAMINE HCL 100 MG TABLET (FP) PO SCH (21:40)
[2019-05-21] MEDS: ATORVASTATIN CA 10 MG TABLET (FP) PO SCH (21:40)
[2019-05-22] MEDS: amLODIPine BESYLATE 10 MG TABLET (FP) PO SCH (09:58)
[2019-05-22] MEDS: ENALAPRIL MALEATE 10 MG TABLET (FP) PO SCH ×2 (09:58→21:13)
[2019-05-22] MEDS: ASPIRIN 81 MG CHEWABLE TABLETS PO SCH (09:58)
[2019-05-22] MEDS: ARIPiprazole 10 MG TABLET PO SCH (09:58)
[2019-05-22] MEDS: PRENATAL VITAMINS W/ FOLIC ACID TABLET (FP) PO SCH (09:58)
[2019-05-22] MEDS: BACITRACIN 15 GM TUBE TOPICAL OINTMENT TP SCH ×2 (09:58→21:14)
[2019-05-22] MEDS: QUEtiapine FUMARATE 200 MG TABLET PO SCH (21:13)
[2019-05-22] MEDS: THIAMINE HCL 100 MG TABLET (FP) PO SCH (21:13)
[2019-05-22] MEDS: MELATONIN 5 MG TABLETS PO PRN (21:13)
[2019-05-22] MEDS: ATORVASTATIN CA 10 MG TABLET (FP) PO SCH (21:13)
[2019-05-23] MEDS: amLODIPine BESYLATE 10 MG TABLET (FP) PO SCH (10:44)
[2019-05-23] MEDS: ASPIRIN 81 MG CHEWABLE TABLETS PO SCH (10:44)
[2019-05-23] MEDS: ENALAPRIL MALEATE 10 MG TABLET (FP) PO SCH ×2 (10:44→21:15)
[2019-05-23] MEDS: PRENATAL VITAMINS W/ FOLIC ACID TABLET (FP) PO SCH (10:44)
[2019-05-23] MEDS: ARIPiprazole 10 MG TABLET PO SCH (10:45)
[2019-05-23] MEDS: BACITRACIN 15 GM TUBE TOPICAL OINTMENT TP SCH ×2 (10:46→21:16)
[2019-05-23] MEDS: ATORVASTATIN CA 10 MG TABLET (FP) PO SCH (21:15)
[2019-05-23] MEDS: QUEtiapine FUMARATE 200 MG TABLET PO SCH (21:15)
[2019-05-23] MEDS: MELATONIN 5 MG TABLETS PO PRN (21:16)
[2019-05-23] MEDS: THIAMINE HCL 100 MG TABLET (FP) PO SCH (21:16)
[2019-05-24] MEDS: amLODIPine BESYLATE 10 MG TABLET (FP) PO SCH (10:01)
[2019-05-24] MEDS: BACITRACIN 15 GM TUBE TOPICAL OINTMENT TP SCH ×2 (10:01→21:08)
[2019-05-24] MEDS: PRENATAL VITAMINS W/ FOLIC ACID TABLET (FP) PO SCH (10:01)
[2019-05-24] MEDS: ARIPiprazole 10 MG TABLET PO SCH (10:01)
[2019-05-24] MEDS: ASPIRIN 81 MG CHEWABLE TABLETS PO SCH (10:01)
[2019-05-24] MEDS: ENALAPRIL MALEATE 10 MG TABLET (FP) PO SCH ×2 (10:01→21:07)
[2019-05-24] MEDS: ACETAMINOPHEN 325 MG TABLET (FP) PO PRN (10:02)
[2019-05-24] MEDS: THIAMINE HCL 100 MG TABLET (FP) PO SCH (21:07)
[2019-05-24] MEDS: QUEtiapine FUMARATE 200 MG TABLET PO SCH (21:07)
[2019-05-24] MEDS: ATORVASTATIN CA 10 MG TABLET (FP) PO SCH (21:07)
[2019-05-24] MEDS: MELATONIN 5 MG TABLETS PO PRN (21:07)
[2019-05-25] MEDS: ARIPiprazole 10 MG TABLET PO SCH (10:45)
[2019-05-25] MEDS: ASPIRIN 81 MG CHEWABLE TABLETS PO SCH (10:45)
[2019-05-25] MEDS: amLODIPine BESYLATE 10 MG TABLET (FP) PO SCH (10:45)
[2019-05-25] MEDS: PRENATAL VITAMINS W/ FOLIC ACID TABLET (FP) PO SCH (10:45)
[2019-05-25] MEDS: ENALAPRIL MALEATE 10 MG TABLET (FP) PO SCH ×2 (10:45→21:21)
[2019-05-25] MEDS: BACITRACIN 15 GM TUBE TOPICAL OINTMENT TP SCH ×2 (10:46→22:30)
[2019-05-25] MEDS: QUEtiapine FUMARATE 200 MG TABLET PO SCH (21:21)
[2019-05-25] MEDS: THIAMINE HCL 100 MG TABLET (FP) PO SCH (21:21)
[2019-05-25] MEDS: ATORVASTATIN CA 10 MG TABLET (FP) PO SCH (21:21)
[2019-05-25] MEDS: MELATONIN 5 MG TABLETS PO PRN (21:22)
[2019-05-26] MEDS: ARIPiprazole 10 MG TABLET PO SCH (10:26)
[2019-05-26] MEDS: ASPIRIN 81 MG CHEWABLE TABLETS PO SCH (10:26)
[2019-05-26] MEDS: PRENATAL VITAMINS W/ FOLIC ACID TABLET (FP) PO SCH (10:27)
[2019-05-26] MEDS: ENALAPRIL MALEATE 10 MG TABLET (FP) PO SCH ×2 (10:27→21:30)
[2019-05-26] MEDS: amLODIPine BESYLATE 10 MG TABLET (FP) PO SCH (10:27)
[2019-05-26] MEDS: BACITRACIN 15 GM TUBE TOPICAL OINTMENT TP SCH ×2 (10:27→22:51)
[2019-05-26] MEDS: ACETAMINOPHEN 325 MG TABLET (FP) PO PRN (10:28)
--- NOTE | 2019-05-26 11:56 | PN ---
[facility] Progress Note Note: Patient is scheduled for discharge tomorrow. Scripts for 30 days supply of medications(Abilify 10 mg/day, Seroquel 200 mg/hs) will be electronically transmitted to [facility] pharmacy at [address] [place] [address]
[2019-05-26] MEDS: QUEtiapine FUMARATE 200 MG TABLET PO SCH (21:30)
[2019-05-26] MEDS: ATORVASTATIN CA 10 MG TABLET (FP) PO SCH (21:30)
[2019-05-26] MEDS: THIAMINE HCL 100 MG TABLET (FP) PO SCH (21:30)
[2019-05-26] MEDS: MELATONIN 5 MG TABLETS PO PRN (21:32)
[2019-05-27 06:59] VITALS: BP 141/89; PULSE 77; TEMP 98.1
--- NOTE | 2019-05-27 09:53 | PN ---
[facility] Progress Note (SOAP) Subjective: Pt is a 64 y/o male admitted to rehab on 05/14/19 after completing detox treatment here. Pt has a hx of MIRIAM, PMHx of htn,asthma and hypercholesterolemia -Reports has own meds. Pt met with his counselor and has been referred for CD aftercare at [facility]. Pt reports he is connected to [facility] in [facility] for medical follow up. Pt denies s/h/i. Objective: 05/27/19 09:52 Vital Signs 05/27/19 05/27/19 03:30 06:58 Temperature 98.1 F Pulse Rate 77 Respiratory 18 18 Rate Blood Pressure 141/89 Home Medications Medication Instructions Recorded Mirtazapine [Remeron -] 15 mg PO HS #30 tablet 10/05/16 Risperidone [Risperdal] 2 mg PO HS #30 tablet 12/02/16 Albuterol Sulfate Inhaler - 2 inh PO Q4H PRN #1 inhaler 07/31/17 [Ventolin HFA Inhaler -] Amlodipine Besylate [Norvasc -] 10 mg PO DAILY #30 tablet 07/31/17 Aspirin [ASA -] 81 mg PO DAILY #30 tab.chew 07/31/17 Atorvastatin Ca [Lipitor] 10 mg PO HS #30 tablet 07/31/17 Citalopram Hydrobromide [Celexa -] 10 mg PO DAILY #30 tablet 07/31/17 Enalapril Maleate [Vasotec -] 10 mg PO BID #60 tablet 07/31/17 Aripiprazole [Abilify -] 2 mg PO DAILY tablet 05/14/19 Aripiprazole [Abilify -] 10 mg PO DAILY #30 tablet 05/26/19 Quetiapine Fumarate [Seroquel -] 200 mg PO HS #30 tablet 05/26/19 General:Alert o x 3. Cardiac:s1 s2 ,rrr lungs:cta, araceli. Abdomen:+bs,nt,+fatty Extremities/skin:no edema/cyanosis/rash; ambulates with steady gait. Full ROM. Assessment: 05/27/19 15:27 Medically stable [facility] Inpatient Services Medical - Diagnosis (1) HTN (hypertension) Status: Chronic (2) Cocaine dependence Qualifiers: Substance use status: uncomplicated Qualified Code(s): F14.20 - Cocaine dependence, uncomplicated Status: Acute (3) Alcohol dependence Qualifiers: Substance use status: uncomplicated Qualified Code(s): F10.20 - Alcohol dependence, uncomplicated Status: Chronic (4) H/O hypercholesterolemia Status: Chronic (5) History of asthma Status: Chronic (6) Hypertension Qualifiers: Hypertension type: essential hypertension Qualified Code(s): I10 - Essential (primary) hypertension Status: Chronic Initialized on 05/27/19 09:53 - END OF NOTE Plan: D/c pt today follow up with CD aftercare recomendations follow up with primary care @ [facility] within 1-2 weeks after discharge.
== END 2019-05-27 08:45 | disposition home or self-care (01) | DRG 772 ==
LOC: YASAS 14:32 → Y5N 14:33
PROVIDERS: ADMIT Neuromusculoskeletal Medicine & OMM; ATTEND Neuromusculoskeletal Medicine & OMM
PROC: HZ42ZZZ Group Counseling for Substance Abuse Treatment, Cognitive-Behavioral (ICD-10-PCS; principal; 2019-05-14)
DX: F10.20 Alcohol dependence, uncomplicated (principal); F14.20 Cocaine dependence, uncomplicated; F31.9 Bipolar disorder, unspecified; F19.282 Other psychoactive substance dependence with psychoactive substance-induced sleep disorder; I10 Essential (primary) hypertension; J45.909 Unspecified asthma, uncomplicated; E78.5 Hyperlipidemia, unspecified; R01.1 Cardiac murmur, unspecified; R76.11 Nonspecific reaction to tuberculin skin test without active tuberculosis; N40.0 Benign prostatic hyperplasia without lower urinary tract symptoms; Z88.0 Allergy status to penicillin

== ENCOUNTER 2020-10-12 13:55 | Inpatient (IN) | payer OTHER ==
[2020-10-12 16:35] VITALS: BMI 33.7
[2020-10-12] MEDS ORDERED: LOPERAMIDE HCL 2 MG CAPSULE PO PRN (18:15)
[2020-10-12] MEDS ORDERED: guaiFENesin 200 MG/10 ML 10 ML UNIT-DOSE CUPS PO PRN (18:15)
[2020-10-12] MEDS ORDERED: MAGNESIUM CITRATE 300 ML BOTTLE PO PRN (18:15)
[2020-10-12] MEDS ORDERED: P-EPHED 60MG/TRIPROLIDI 2.5MG TABLET PO PRN (18:15)
[2020-10-12] MEDS ORDERED: IBUPROFEN 400 MG TABLET (FP) PO PRN (18:15)
[2020-10-12] MEDS ORDERED: MAGNESIUM HYDROX 2400MG/30ML ORAL SUSPENSION 30 ML CUP PO PRN (18:15)
[2020-10-12] MEDS: MELATONIN 5 MG TABLETS PO SCH (23:58)
[2020-10-12] MEDS: THIAMINE HCL 100 MG TABLET (FP) PO SCH (23:58)
[2020-10-12] MEDS: hydrOXYzine PAMOATE 25 MG CAPSULE (FP) PO SCH (23:58)
[2020-10-13] MEDS: hydrOXYzine PAMOATE 25 MG CAPSULE (FP) PO SCH ×5 (06:29→21:19)
[2020-10-13] MEDS: PRENATAL VITAMINS W/ FOLIC ACID TABLET (FP) PO SCH (10:17)
[2020-10-13] MEDS: ACETAMINOPHEN 325 MG TABLET (FP) PO PRN (10:17)
[2020-10-13] MEDS: NICOTINE 7 MG/24 HOURS TOPICAL PATCH TD SCH (10:18)
[2020-10-13 10:48] LABS: HEMATOCRIT 42.5 % (35.4-49); HEMOGLOBIN 14.3 GM/dL (11.7-16.9); MCH 31.6 pg (25.7-33.7); MCHC 33.5 g/dl (32.0-35.9); MEAN CELL VOLUME 94.2 fl (80-96); MEAN PLT VOLUME 8.5 fl (7.5-11.1); PLATELET COUNT 339 K/MM3 (134-434); RBC 4.51 M/mm3 (4.00-5.60); RDW 13.5 % (11.9-15.9); WHITE BLOOD COUNT 6.9 K/mm3 (4.0-10.0)
[2020-10-13 10:50] LABS: POTASSIUM 3.8 mmol/L (3.5-5.1)
[2020-10-13 10:55] LABS: ALBUMIN 3.2 g/dl (3.4-5.0); CALCIUM 8.8 mg/dL (8.5-10.1)
[2020-10-13 10:58] LABS: CREATININE 1.1 mg/dL (0.55-1.3)
[2020-10-13 15:37] LABS: URINE APPEARANCE TURBID; URINE BILIRUBIN NEGATIVE (NEGATIVE); URINE COLOR YELLOW; URINE GLUCOSE (UA) NEGATIVE (NEGATIVE); URINE KETONE NEGATIVE (NEGATIVE); URINE LEUK ESTERASE NEGATIVE (NEGATIVE); URINE NITRITE NEGATIVE (NEGATIVE); URINE PROTEIN NEGATIVE (NEGATIVE); URINE UROBILINOGEN 0.2 mg/dL (0.2-1.0)
[2020-10-13] MEDS: THIAMINE HCL 100 MG TABLET (FP) PO SCH (21:19)
[2020-10-13] MEDS: MELATONIN 5 MG TABLETS PO SCH (21:19)
[2020-10-14] MEDS: hydrOXYzine PAMOATE 25 MG CAPSULE (FP) PO SCH ×5 (07:12→21:33)
[2020-10-14] MEDS: PRENATAL VITAMINS W/ FOLIC ACID TABLET (FP) PO SCH ×2 (10:06→11:33)
[2020-10-14] MEDS: NICOTINE 7 MG/24 HOURS TOPICAL PATCH TD SCH (10:06)
[2020-10-14] MEDS ORDERED: PT OWN MED DRAWER 7, Y5N ONE (13:57)
[2020-10-14] MEDS: amLODIPine BESYLATE 10 MG TABLET (FP) PO SCH (15:04)
[2020-10-14] MEDS: MELATONIN 5 MG TABLETS PO SCH (21:33)
[2020-10-14] MEDS: THIAMINE HCL 100 MG TABLET (FP) PO SCH (21:33)
[2020-10-14] MEDS: ATORVASTATIN CA 10 MG TABLET (FP) PO SCH (21:34)
[2020-10-14] MEDS: QUEtiapine FUMARATE 200 MG TABLET PO SCH (21:34)
[2020-10-15] MEDS: hydrOXYzine PAMOATE 25 MG CAPSULE (FP) PO SCH ×5 (06:21→22:52)
[2020-10-15] MEDS: LISINOPRIL 20 MG TABLET PO SCH (09:57)
[2020-10-15] MEDS: NICOTINE 7 MG/24 HOURS TOPICAL PATCH TD SCH (09:57)
[2020-10-15] MEDS: amLODIPine BESYLATE 10 MG TABLET (FP) PO SCH (09:57)
[2020-10-15] MEDS: PRENATAL VITAMINS W/ FOLIC ACID TABLET (FP) PO SCH (09:57)
[2020-10-15] MEDS: ARIPiprazole 10 MG TABLET PO SCH (09:58)
[2020-10-15 12:33] LABS: SICKLE CELL SCREEN NEGATIVE (NEGATIVE)
[2020-10-15] MEDS: QUEtiapine FUMARATE 200 MG TABLET PO SCH (22:52)
[2020-10-15] MEDS: ATORVASTATIN CA 10 MG TABLET (FP) PO SCH (22:52)
[2020-10-15] MEDS: THIAMINE HCL 100 MG TABLET (FP) PO SCH (22:52)
[2020-10-15] MEDS: MELATONIN 5 MG TABLETS PO SCH (22:52)
[2020-10-16] MEDS ORDERED: MASKS NR ONE (07:46)
[2020-10-16] MEDS: hydrOXYzine PAMOATE 25 MG CAPSULE (FP) PO SCH ×5 (07:51→21:40)
[2020-10-16] MEDS: amLODIPine BESYLATE 10 MG TABLET (FP) PO SCH (10:16)
[2020-10-16] MEDS: ARIPiprazole 10 MG TABLET PO SCH (10:16)
[2020-10-16] MEDS: PRENATAL VITAMINS W/ FOLIC ACID TABLET (FP) PO SCH (10:16)
[2020-10-16] MEDS: LISINOPRIL 20 MG TABLET PO SCH (10:17)
[2020-10-16] MEDS: NICOTINE 7 MG/24 HOURS TOPICAL PATCH TD SCH (10:17)
[2020-10-16] MEDS: ATORVASTATIN CA 10 MG TABLET (FP) PO SCH (21:40)
[2020-10-16] MEDS: QUEtiapine FUMARATE 200 MG TABLET PO SCH (21:40)
[2020-10-16] MEDS: THIAMINE HCL 100 MG TABLET (FP) PO SCH (21:40)
[2020-10-16] MEDS: MELATONIN 5 MG TABLETS PO SCH (21:40)
[2020-10-17] MEDS: hydrOXYzine PAMOATE 25 MG CAPSULE (FP) PO SCH ×5 (06:26→21:45)
[2020-10-17] MEDS: ARIPiprazole 10 MG TABLET PO SCH (10:22)
[2020-10-17] MEDS: amLODIPine BESYLATE 10 MG TABLET (FP) PO SCH (10:23)
[2020-10-17] MEDS: LISINOPRIL 20 MG TABLET PO SCH (10:23)
[2020-10-17] MEDS: PRENATAL VITAMINS W/ FOLIC ACID TABLET (FP) PO SCH (10:23)
[2020-10-17] MEDS: NICOTINE 7 MG/24 HOURS TOPICAL PATCH TD SCH (10:24)
[2020-10-17] MEDS: QUEtiapine FUMARATE 200 MG TABLET PO SCH (21:45)
[2020-10-17] MEDS: THIAMINE HCL 100 MG TABLET (FP) PO SCH (21:45)
[2020-10-17] MEDS: ATORVASTATIN CA 10 MG TABLET (FP) PO SCH (21:45)
[2020-10-17] MEDS: MELATONIN 5 MG TABLETS PO SCH (21:45)
[2020-10-18] MEDS: hydrOXYzine PAMOATE 25 MG CAPSULE (FP) PO SCH ×5 (06:38→21:32)
[2020-10-18] MEDS: LISINOPRIL 20 MG TABLET PO SCH (09:41)
[2020-10-18] MEDS: PRENATAL VITAMINS W/ FOLIC ACID TABLET (FP) PO SCH (09:41)
[2020-10-18] MEDS: ARIPiprazole 10 MG TABLET PO SCH (09:42)
[2020-10-18] MEDS: NICOTINE 7 MG/24 HOURS TOPICAL PATCH TD SCH (09:42)
[2020-10-18] MEDS: amLODIPine BESYLATE 10 MG TABLET (FP) PO SCH (09:42)
[2020-10-18] MEDS: ATORVASTATIN CA 10 MG TABLET (FP) PO SCH (21:32)
[2020-10-18] MEDS: MELATONIN 5 MG TABLETS PO SCH (21:32)
[2020-10-18] MEDS: QUEtiapine FUMARATE 200 MG TABLET PO SCH (21:32)
[2020-10-18] MEDS: THIAMINE HCL 100 MG TABLET (FP) PO SCH (21:32)
[2020-10-19] MEDS: hydrOXYzine PAMOATE 25 MG CAPSULE (FP) PO SCH ×5 (06:49→22:01)
[2020-10-19] MEDS: MAG HYDROX/AL HYDROX/SIMETH 30 ML UNIT-DOSE CUP PO PRN (09:51)
[2020-10-19] MEDS: PRENATAL VITAMINS W/ FOLIC ACID TABLET (FP) PO SCH (09:51)
[2020-10-19] MEDS: ARIPiprazole 10 MG TABLET PO SCH (09:51)
[2020-10-19] MEDS: amLODIPine BESYLATE 10 MG TABLET (FP) PO SCH (09:51)
[2020-10-19] MEDS: NICOTINE 7 MG/24 HOURS TOPICAL PATCH TD SCH (09:53)
[2020-10-19] MEDS: LISINOPRIL 20 MG TABLET PO SCH (10:51)
[2020-10-19] MEDS: THIAMINE HCL 100 MG TABLET (FP) PO SCH (22:01)
[2020-10-19] MEDS: QUEtiapine FUMARATE 200 MG TABLET PO SCH (22:01)
[2020-10-19] MEDS: MELATONIN 5 MG TABLETS PO SCH (22:01)
[2020-10-19] MEDS: ATORVASTATIN CA 10 MG TABLET (FP) PO SCH (22:01)
[2020-10-20] MEDS: hydrOXYzine PAMOATE 25 MG CAPSULE (FP) PO SCH ×5 (06:00→21:40)
[2020-10-20] MEDS: NICOTINE POLACRILEX 2 MG GUM BC PRN ×2 (07:28→10:11)
[2020-10-20] MEDS ORDERED: PT OWN MED DRAWER 7, Y5N ONE (08:41)
[2020-10-20] MEDS: ARIPiprazole 10 MG TABLET PO SCH (10:09)
[2020-10-20] MEDS: PRENATAL VITAMINS W/ FOLIC ACID TABLET (FP) PO SCH (10:09)
[2020-10-20] MEDS: amLODIPine BESYLATE 10 MG TABLET (FP) PO SCH (10:09)
[2020-10-20] MEDS: LISINOPRIL 20 MG TABLET PO SCH (10:09)
[2020-10-20] MEDS: NICOTINE 7 MG/24 HOURS TOPICAL PATCH TD SCH (10:11)
[2020-10-20] MEDS ORDERED: cloNIDine HCL 0.1 MG TABLET PO ONE (12:26)
[2020-10-20] MEDS: ACETAMINOPHEN 325 MG TABLET (FP) PO PRN (12:29)
[2020-10-20] MEDS: QUEtiapine FUMARATE 200 MG TABLET PO SCH (21:40)
[2020-10-20] MEDS: ATORVASTATIN CA 10 MG TABLET (FP) PO SCH (21:40)
[2020-10-20] MEDS: THIAMINE HCL 100 MG TABLET (FP) PO SCH (21:40)
[2020-10-20] MEDS: MELATONIN 5 MG TABLETS PO SCH (21:45)
[2020-10-21] MEDS: hydrOXYzine PAMOATE 25 MG CAPSULE (FP) PO SCH ×5 (06:43→21:45)
[2020-10-21] MEDS: LISINOPRIL 20 MG TABLET PO SCH (10:40)
[2020-10-21] MEDS: amLODIPine BESYLATE 10 MG TABLET (FP) PO SCH (10:40)
[2020-10-21] MEDS: PRENATAL VITAMINS W/ FOLIC ACID TABLET (FP) PO SCH (10:40)
[2020-10-21] MEDS: ARIPiprazole 10 MG TABLET PO SCH (10:42)
[2020-10-21] MEDS: NICOTINE 7 MG/24 HOURS TOPICAL PATCH TD SCH (10:42)
[2020-10-21] MEDS: THIAMINE HCL 100 MG TABLET (FP) PO SCH (21:45)
[2020-10-21] MEDS: QUEtiapine FUMARATE 200 MG TABLET PO SCH (21:45)
[2020-10-21] MEDS: MELATONIN 5 MG TABLETS PO SCH (21:45)
[2020-10-21] MEDS: ATORVASTATIN CA 10 MG TABLET (FP) PO SCH (21:45)
[2020-10-22] MEDS: hydrOXYzine PAMOATE 25 MG CAPSULE (FP) PO SCH ×2 (06:16→09:42)
[2020-10-22] MEDS: PRENATAL VITAMINS W/ FOLIC ACID TABLET (FP) PO SCH (09:42)
[2020-10-22] MEDS: amLODIPine BESYLATE 10 MG TABLET (FP) PO SCH (09:42)
[2020-10-22] MEDS: LISINOPRIL 20 MG TABLET PO SCH (09:42)
[2020-10-22] MEDS: ARIPiprazole 10 MG TABLET PO SCH (09:42)
[2020-10-22] MEDS: NICOTINE 7 MG/24 HOURS TOPICAL PATCH TD SCH (09:43)
[2020-10-22] MEDS: ATORVASTATIN CA 10 MG TABLET (FP) PO SCH (21:40)
[2020-10-22] MEDS: QUEtiapine FUMARATE 200 MG TABLET PO SCH (21:40)
[2020-10-22] MEDS: THIAMINE HCL 100 MG TABLET (FP) PO SCH (21:40)
[2020-10-22] MEDS: MELATONIN 5 MG TABLETS PO SCH (21:40)
[2020-10-23] MEDS: hydrOXYzine PAMOATE 25 MG CAPSULE (FP) PO PRN (10:01)
[2020-10-23] MEDS: LISINOPRIL 20 MG TABLET PO SCH (10:01)
[2020-10-23] MEDS: amLODIPine BESYLATE 10 MG TABLET (FP) PO SCH (10:01)
[2020-10-23] MEDS: PRENATAL VITAMINS W/ FOLIC ACID TABLET (FP) PO SCH (10:01)
[2020-10-23] MEDS: NICOTINE POLACRILEX 2 MG GUM BC PRN (10:02)
[2020-10-23] MEDS: ARIPiprazole 10 MG TABLET PO SCH (10:02)
[2020-10-23] MEDS: NICOTINE 7 MG/24 HOURS TOPICAL PATCH TD SCH (10:02)
[2020-10-23] MEDS: THIAMINE HCL 100 MG TABLET (FP) PO SCH (21:17)
[2020-10-23] MEDS: MELATONIN 5 MG TABLETS PO SCH (21:17)
[2020-10-23] MEDS: QUEtiapine FUMARATE 200 MG TABLET PO SCH (21:18)
[2020-10-23] MEDS: ATORVASTATIN CA 10 MG TABLET (FP) PO SCH (21:18)
[2020-10-24] MEDS: amLODIPine BESYLATE 10 MG TABLET (FP) PO SCH (11:10)
[2020-10-24] MEDS: PRENATAL VITAMINS W/ FOLIC ACID TABLET (FP) PO SCH (11:10)
[2020-10-24] MEDS: ARIPiprazole 10 MG TABLET PO SCH (11:10)
[2020-10-24] MEDS: hydrOXYzine PAMOATE 25 MG CAPSULE (FP) PO PRN (11:10)
[2020-10-24] MEDS: LISINOPRIL 20 MG TABLET PO SCH (11:10)
[2020-10-24] MEDS: NICOTINE 7 MG/24 HOURS TOPICAL PATCH TD SCH (11:11)
[2020-10-24] MEDS: QUEtiapine FUMARATE 200 MG TABLET PO SCH (21:57)
[2020-10-24] MEDS: THIAMINE HCL 100 MG TABLET (FP) PO SCH (21:57)
[2020-10-24] MEDS: MELATONIN 5 MG TABLETS PO SCH (21:57)
[2020-10-24] MEDS: ATORVASTATIN CA 10 MG TABLET (FP) PO SCH (21:57)
[2020-10-25] MEDS: amLODIPine BESYLATE 10 MG TABLET (FP) PO SCH (10:47)
[2020-10-25] MEDS: NICOTINE 7 MG/24 HOURS TOPICAL PATCH TD SCH (10:47)
[2020-10-25] MEDS: LISINOPRIL 20 MG TABLET PO SCH (10:47)
[2020-10-25] MEDS: PRENATAL VITAMINS W/ FOLIC ACID TABLET (FP) PO SCH (10:47)
[2020-10-25] MEDS: ARIPiprazole 10 MG TABLET PO SCH (10:47)
[2020-10-25] MEDS: hydrOXYzine PAMOATE 25 MG CAPSULE (FP) PO PRN (10:47)
[2020-10-25] MEDS: NICOTINE POLACRILEX 2 MG GUM BC PRN ×3 (11:25→22:00)
[2020-10-25] MEDS: QUEtiapine FUMARATE 200 MG TABLET PO SCH (21:59)
[2020-10-25] MEDS: ATORVASTATIN CA 10 MG TABLET (FP) PO SCH (21:59)
[2020-10-25] MEDS: MELATONIN 5 MG TABLETS PO SCH (21:59)
[2020-10-25] MEDS: THIAMINE HCL 100 MG TABLET (FP) PO SCH (21:59)
[2020-10-26] MEDS: NICOTINE 7 MG/24 HOURS TOPICAL PATCH TD SCH (10:31)
[2020-10-26] MEDS: amLODIPine BESYLATE 10 MG TABLET (FP) PO SCH (10:31)
[2020-10-26] MEDS: PRENATAL VITAMINS W/ FOLIC ACID TABLET (FP) PO SCH (10:31)
[2020-10-26] MEDS: ARIPiprazole 10 MG TABLET PO SCH (10:31)
[2020-10-26] MEDS: hydrOXYzine PAMOATE 25 MG CAPSULE (FP) PO PRN (10:31)
[2020-10-26] MEDS: NICOTINE POLACRILEX 2 MG GUM BC PRN ×2 (10:31→21:07)
[2020-10-26] MEDS: LISINOPRIL 20 MG TABLET PO SCH (10:31)
[2020-10-26] MEDS: THIAMINE HCL 100 MG TABLET (FP) PO SCH (21:06)
[2020-10-26] MEDS: MELATONIN 5 MG TABLETS PO SCH (21:06)
[2020-10-26] MEDS: ATORVASTATIN CA 10 MG TABLET (FP) PO SCH (21:06)
[2020-10-26] MEDS: QUEtiapine FUMARATE 200 MG TABLET PO SCH (21:06)
[2020-10-27] MEDS: ARIPiprazole 10 MG TABLET PO SCH (10:28)
[2020-10-27] MEDS: LISINOPRIL 20 MG TABLET PO SCH (10:29)
[2020-10-27] MEDS: PRENATAL VITAMINS W/ FOLIC ACID TABLET (FP) PO SCH (10:29)
[2020-10-27] MEDS: amLODIPine BESYLATE 10 MG TABLET (FP) PO SCH (10:29)
[2020-10-27] MEDS: NICOTINE 7 MG/24 HOURS TOPICAL PATCH TD SCH (10:29)
[2020-10-27] MEDS: NICOTINE POLACRILEX 2 MG GUM BC PRN (10:30)
[2020-10-27] MEDS: MELATONIN 5 MG TABLETS PO SCH (21:29)
[2020-10-27] MEDS: THIAMINE HCL 100 MG TABLET (FP) PO SCH (21:30)
[2020-10-27] MEDS: ATORVASTATIN CA 10 MG TABLET (FP) PO SCH (21:30)
[2020-10-27] MEDS: QUEtiapine FUMARATE 200 MG TABLET PO SCH (21:30)
[2020-10-28] MEDS: hydrOXYzine PAMOATE 25 MG CAPSULE (FP) PO PRN (09:42)
[2020-10-28] MEDS: PRENATAL VITAMINS W/ FOLIC ACID TABLET (FP) PO SCH (09:42)
[2020-10-28] MEDS: amLODIPine BESYLATE 10 MG TABLET (FP) PO SCH (09:42)
[2020-10-28] MEDS: ARIPiprazole 10 MG TABLET PO SCH (09:42)
[2020-10-28] MEDS: NICOTINE 7 MG/24 HOURS TOPICAL PATCH TD SCH (09:42)
[2020-10-28] MEDS: LISINOPRIL 20 MG TABLET PO SCH (09:42)
[2020-10-28] MEDS: ATORVASTATIN CA 10 MG TABLET (FP) PO SCH (21:14)
[2020-10-28] MEDS: QUEtiapine FUMARATE 200 MG TABLET PO SCH (21:14)
[2020-10-28] MEDS: MELATONIN 5 MG TABLETS PO SCH (21:14)
[2020-10-28] MEDS: THIAMINE HCL 100 MG TABLET (FP) PO SCH (21:14)
[2020-10-29] MEDS: LISINOPRIL 20 MG TABLET PO SCH (09:51)
[2020-10-29] MEDS: PRENATAL VITAMINS W/ FOLIC ACID TABLET (FP) PO SCH (09:51)
[2020-10-29] MEDS: hydrOXYzine PAMOATE 25 MG CAPSULE (FP) PO PRN (09:51)
[2020-10-29] MEDS: ARIPiprazole 10 MG TABLET PO SCH (09:52)
[2020-10-29] MEDS: NICOTINE 7 MG/24 HOURS TOPICAL PATCH TD SCH (09:52)
[2020-10-29] MEDS: amLODIPine BESYLATE 10 MG TABLET (FP) PO SCH (09:52)
[2020-10-29] MEDS: NICOTINE POLACRILEX 2 MG GUM BC PRN ×3 (10:33→21:40)
[2020-10-29] MEDS ORDERED: MASKS NR ONE (17:06)
[2020-10-29] MEDS: QUEtiapine FUMARATE 200 MG TABLET PO SCH (21:37)
[2020-10-29] MEDS: MELATONIN 5 MG TABLETS PO SCH (21:37)
[2020-10-29] MEDS: ATORVASTATIN CA 10 MG TABLET (FP) PO SCH (21:38)
[2020-10-29] MEDS: THIAMINE HCL 100 MG TABLET (FP) PO SCH (21:38)
[2020-10-30] MEDS: PRENATAL VITAMINS W/ FOLIC ACID TABLET (FP) PO SCH (09:46)
[2020-10-30] MEDS: hydrOXYzine PAMOATE 25 MG CAPSULE (FP) PO PRN (09:46)
[2020-10-30] MEDS: amLODIPine BESYLATE 10 MG TABLET (FP) PO SCH (09:46)
[2020-10-30] MEDS: ARIPiprazole 10 MG TABLET PO SCH (09:46)
[2020-10-30] MEDS: LISINOPRIL 20 MG TABLET PO SCH (09:46)
[2020-10-30] MEDS: NICOTINE 7 MG/24 HOURS TOPICAL PATCH TD SCH (09:46)
[2020-10-30] MEDS: ATORVASTATIN CA 10 MG TABLET (FP) PO SCH (22:03)
[2020-10-30] MEDS: THIAMINE HCL 100 MG TABLET (FP) PO SCH (22:03)
[2020-10-30] MEDS: MELATONIN 5 MG TABLETS PO SCH (22:03)
[2020-10-30] MEDS: QUEtiapine FUMARATE 200 MG TABLET PO SCH (22:03)
[2020-10-31] MEDS: LISINOPRIL 20 MG TABLET PO SCH (09:43)
[2020-10-31] MEDS: amLODIPine BESYLATE 10 MG TABLET (FP) PO SCH (09:43)
[2020-10-31] MEDS: PRENATAL VITAMINS W/ FOLIC ACID TABLET (FP) PO SCH (09:43)
[2020-10-31] MEDS: ARIPiprazole 10 MG TABLET PO SCH (09:43)
[2020-10-31] MEDS: NICOTINE 7 MG/24 HOURS TOPICAL PATCH TD SCH (09:43)
[2020-10-31] MEDS ORDERED: MASKS NR ONE (10:15)
[2020-10-31] MEDS: MELATONIN 5 MG TABLETS PO SCH (21:36)
[2020-10-31] MEDS: ATORVASTATIN CA 10 MG TABLET (FP) PO SCH (21:36)
[2020-10-31] MEDS: THIAMINE HCL 100 MG TABLET (FP) PO SCH (21:36)
[2020-10-31] MEDS: QUEtiapine FUMARATE 200 MG TABLET PO SCH (21:36)
[2020-11-01] MEDS: PRENATAL VITAMINS W/ FOLIC ACID TABLET (FP) PO SCH (10:41)
[2020-11-01] MEDS: LISINOPRIL 20 MG TABLET PO SCH (10:41)
[2020-11-01] MEDS: NICOTINE 7 MG/24 HOURS TOPICAL PATCH TD SCH (10:41)
[2020-11-01] MEDS: amLODIPine BESYLATE 10 MG TABLET (FP) PO SCH (10:41)
[2020-11-01] MEDS: ARIPiprazole 10 MG TABLET PO SCH (10:41)
[2020-11-01] MEDS: THIAMINE HCL 100 MG TABLET (FP) PO SCH (21:04)
[2020-11-01] MEDS: QUEtiapine FUMARATE 200 MG TABLET PO SCH (21:04)
[2020-11-01] MEDS: MELATONIN 5 MG TABLETS PO SCH (21:04)
[2020-11-01] MEDS: ATORVASTATIN CA 10 MG TABLET (FP) PO SCH (21:04)
[2020-11-02] MEDS: PRENATAL VITAMINS W/ FOLIC ACID TABLET (FP) PO SCH (09:57)
[2020-11-02] MEDS: LISINOPRIL 20 MG TABLET PO SCH (09:57)
[2020-11-02] MEDS: amLODIPine BESYLATE 10 MG TABLET (FP) PO SCH (09:57)
[2020-11-02] MEDS: ARIPiprazole 10 MG TABLET PO SCH (09:57)
[2020-11-02] MEDS: NICOTINE 7 MG/24 HOURS TOPICAL PATCH TD SCH (09:58)
[2020-11-02] MEDS: MELATONIN 5 MG TABLETS PO SCH (23:38)
[2020-11-02] MEDS: ATORVASTATIN CA 10 MG TABLET (FP) PO SCH (23:38)
[2020-11-02] MEDS: QUEtiapine FUMARATE 200 MG TABLET PO SCH (23:38)
[2020-11-02] MEDS: THIAMINE HCL 100 MG TABLET (FP) PO SCH (23:38)
[2020-11-03] MEDS: PRENATAL VITAMINS W/ FOLIC ACID TABLET (FP) PO SCH (09:52)
[2020-11-03] MEDS: amLODIPine BESYLATE 10 MG TABLET (FP) PO SCH (09:53)
[2020-11-03] MEDS: ARIPiprazole 10 MG TABLET PO SCH (09:53)
[2020-11-03] MEDS: NICOTINE 7 MG/24 HOURS TOPICAL PATCH TD SCH (09:53)
[2020-11-03] MEDS: LISINOPRIL 20 MG TABLET PO SCH (09:53)
[2020-11-03] MEDS: hydrOXYzine PAMOATE 25 MG CAPSULE (FP) PO PRN (09:53)
[2020-11-03] MEDS: MAG HYDROX/AL HYDROX/SIMETH 30 ML UNIT-DOSE CUP PO PRN (12:39)
[2020-11-03] MEDS: MELATONIN 5 MG TABLETS PO SCH (21:29)
[2020-11-03] MEDS: ATORVASTATIN CA 10 MG TABLET (FP) PO SCH (21:29)
[2020-11-03] MEDS: THIAMINE HCL 100 MG TABLET (FP) PO SCH (21:29)
[2020-11-03] MEDS: QUEtiapine FUMARATE 200 MG TABLET PO SCH (21:29)
[2020-11-04] MEDS: NICOTINE 7 MG/24 HOURS TOPICAL PATCH TD SCH (09:36)
[2020-11-04] MEDS: LISINOPRIL 20 MG TABLET PO SCH (09:36)
[2020-11-04] MEDS: PRENATAL VITAMINS W/ FOLIC ACID TABLET (FP) PO SCH (09:36)
[2020-11-04] MEDS: hydrOXYzine PAMOATE 25 MG CAPSULE (FP) PO PRN (09:36)
[2020-11-04] MEDS: ARIPiprazole 10 MG TABLET PO SCH (09:36)
[2020-11-04] MEDS: amLODIPine BESYLATE 10 MG TABLET (FP) PO SCH (09:36)
[2020-11-04] MEDS: QUEtiapine FUMARATE 200 MG TABLET PO SCH (21:44)
[2020-11-04] MEDS: THIAMINE HCL 100 MG TABLET (FP) PO SCH (21:44)
[2020-11-04] MEDS: ATORVASTATIN CA 10 MG TABLET (FP) PO SCH (21:44)
[2020-11-04] MEDS: MELATONIN 5 MG TABLETS PO SCH (21:44)
[2020-11-05 06:38] VITALS: BP 146/88; PULSE 87; TEMP 98.2
[2020-11-05] MEDS: NICOTINE 7 MG/24 HOURS TOPICAL PATCH TD SCH (09:16)
[2020-11-05] MEDS: PRENATAL VITAMINS W/ FOLIC ACID TABLET (FP) PO SCH (09:16)
[2020-11-05] MEDS: LISINOPRIL 20 MG TABLET PO SCH (09:16)
[2020-11-05] MEDS: amLODIPine BESYLATE 10 MG TABLET (FP) PO SCH (09:16)
[2020-11-05] MEDS: hydrOXYzine PAMOATE 25 MG CAPSULE (FP) PO PRN (09:16)
[2020-11-05] MEDS: ARIPiprazole 10 MG TABLET PO SCH (09:16)
[2020-11-05] MEDS ORDERED: PT OWN MED DRAWER 7, Y5N ONE (09:37)
== END 2020-11-05 09:20 | disposition home or self-care (01) | DRG 894 ==
LOC: YASAS 13:55 → Y3W 18:02
PROVIDERS: ADMIT Allergy & Immunology; ATTEND Allergy & Immunology
PROC: HZ42ZZZ Group Counseling for Substance Abuse Treatment, Cognitive-Behavioral (ICD-10-PCS; principal; 2020-10-12)
DX: F10.20 Alcohol dependence, uncomplicated (principal); F14.20 Cocaine dependence, uncomplicated; F19.282 Other psychoactive substance dependence with psychoactive substance-induced sleep disorder; F12.10 Cannabis abuse, uncomplicated; F41.9 Anxiety disorder, unspecified; G47.00 Insomnia, unspecified; E78.5 Hyperlipidemia, unspecified; I10 Essential (primary) hypertension; J45.909 Unspecified asthma, uncomplicated; R94.31 Abnormal electrocardiogram [ECG] [EKG]; Z90.49 Acquired absence of other specified parts of digestive tract; Z88.0 Allergy status to penicillin; Z88.5 Allergy status to narcotic agent; Z91.013 Allergy to seafood
CPT/HCPCS: 36415; 71046-TC-FY; 80053; 81003; 85027; 85660; 86780; 93005; 93010; C9803; J0735; U0003

== ENCOUNTER 2021-01-14 11:29 | Inpatient (IN) | payer OTHER ==
[2021-01-14 12:25] VITALS: BMI 19.0
[2021-01-14] MEDS ORDERED: MAGNESIUM HYDROX 2400MG/30ML ORAL SUSPENSION 30 ML CUP PO PRN (18:43)
[2021-01-14] MEDS ORDERED: guaiFENesin 200 MG/10 ML 10 ML UNIT-DOSE CUPS PO PRN (18:43)
[2021-01-14] MEDS ORDERED: LOPERAMIDE HCL 2 MG CAPSULE PO PRN (18:43)
[2021-01-14] MEDS ORDERED: IBUPROFEN 400 MG TABLET (FP) PO PRN (18:43)
[2021-01-14] MEDS ORDERED: ACETAMINOPHEN 325 MG TABLET (FP) PO PRN (18:43)
[2021-01-14] MEDS ORDERED: MAG HYDROX/AL HYDROX/SIMETH 30 ML UNIT-DOSE CUP PO PRN (18:43)
[2021-01-14] MEDS ORDERED: MAGNESIUM CITRATE 300 ML BOTTLE PO PRN (18:43)
[2021-01-14] MEDS ORDERED: P-EPHED 60MG/TRIPROLIDI 2.5MG TABLET PO PRN (18:43)
[2021-01-14] MEDS: THIAMINE HCL 100 MG TABLET (FP) PO SCH (21:20)
[2021-01-14] MEDS: MELATONIN 5 MG TABLETS PO SCH (21:20)
[2021-01-15] MEDS ORDERED: ALBUTEROL SO4 HFA INHALER IH PRN (08:28)
[2021-01-15] MEDS ORDERED: ARIPiprazole 5 MG TABLET ONE (09:56)
[2021-01-15] MEDS: ARIPiprazole 10 MG TABLET PO SCH (09:56)
[2021-01-15] MEDS: PRENATAL VITAMINS W/ FOLIC ACID TABLET (FP) PO SCH (09:57)
[2021-01-15] MEDS: LISINOPRIL 20 MG TABLET PO SCH (09:57)
[2021-01-15] MEDS: amLODIPine BESYLATE 10 MG TABLET (FP) PO SCH (09:57)
[2021-01-15 10:13] LABS: HEMATOCRIT 39.5 % (35.4-49); HEMOGLOBIN 13.3 GM/dL (11.7-16.9); MCH 31.7 pg (25.7-33.7); MCHC 33.8 g/dl (32.0-35.9); MEAN CELL VOLUME 93.9 fl (80-96); MEAN PLT VOLUME 8.7 fl (7.5-11.1); PLATELET COUNT 297 K/MM3 (134-434); RDW 13.6 % (11.9-15.9); WHITE BLOOD COUNT 5.8 K/mm3 (4.0-10.0)
[2021-01-15 10:15] LABS: CALCIUM 8.5 mg/dL (8.5-10.1)
[2021-01-15 10:17] LABS: ALBUMIN 3.2 g/dl (3.4-5.0); BLOOD UREA NITROGEN 17.3 mg/dL (7-18)
[2021-01-15 10:21] LABS: TOT PROT 6.8 g/dl (6.4-8.2)
[2021-01-15 15:03] LABS: EPI CELLS 18 /uL (0-25.1); HYALINE CASTS 2 /uL (0-3.1); URINE APPEARANCE CLEAR; URINE BACTERIA 116 /uL (0-1359); URINE BILIRUBIN NEGATIVE (NEGATIVE); URINE COLOR YELLOW; URINE GLUCOSE (UA) NEGATIVE (NEGATIVE); URINE KETONE NEGATIVE (NEGATIVE); URINE LEUK ESTERASE TRACE (NEGATIVE); URINE NITRITE NEGATIVE (NEGATIVE); URINE PROTEIN TRACE (NEGATIVE); URINE RBC 9 /uL (0-23.9); URINE WBC 15 /uL (0-25.8)
[2021-01-15] MEDS: THIAMINE HCL 100 MG TABLET (FP) PO SCH (21:16)
[2021-01-15] MEDS: ATORVASTATIN CA 10 MG TABLET (FP) PO SCH (21:16)
[2021-01-15] MEDS: QUEtiapine FUMARATE 200 MG TABLET PO SCH (21:16)
[2021-01-15] MEDS: MELATONIN 5 MG TABLETS PO SCH (21:16)
[2021-01-16] MEDS: ARIPiprazole 10 MG TABLET PO SCH (09:40)
[2021-01-16] MEDS: PRENATAL VITAMINS W/ FOLIC ACID TABLET (FP) PO SCH (09:41)
[2021-01-16] MEDS: LISINOPRIL 20 MG TABLET PO SCH (10:50)
[2021-01-16] MEDS: amLODIPine BESYLATE 10 MG TABLET (FP) PO SCH (10:50)
[2021-01-16] MEDS: ATORVASTATIN CA 10 MG TABLET (FP) PO SCH (21:16)
[2021-01-16] MEDS: THIAMINE HCL 100 MG TABLET (FP) PO SCH (21:16)
[2021-01-16] MEDS: QUEtiapine FUMARATE 200 MG TABLET PO SCH (21:16)
[2021-01-16] MEDS: MELATONIN 5 MG TABLETS PO SCH (21:16)
[2021-01-17] MEDS: LISINOPRIL 20 MG TABLET PO SCH (09:47)
[2021-01-17] MEDS: ARIPiprazole 10 MG TABLET PO SCH (09:47)
[2021-01-17] MEDS: amLODIPine BESYLATE 10 MG TABLET (FP) PO SCH (09:47)
[2021-01-17] MEDS: PRENATAL VITAMINS W/ FOLIC ACID TABLET (FP) PO SCH (09:48)
[2021-01-17] MEDS: MELATONIN 5 MG TABLETS PO SCH (21:41)
[2021-01-17] MEDS: QUEtiapine FUMARATE 200 MG TABLET PO SCH (21:41)
[2021-01-17] MEDS: ATORVASTATIN CA 10 MG TABLET (FP) PO SCH (21:41)
[2021-01-17] MEDS: THIAMINE HCL 100 MG TABLET (FP) PO SCH (21:42)
[2021-01-18] MEDS ORDERED: ARIPiprazole 5 MG TABLET ONE (08:28)
[2021-01-18] MEDS: LISINOPRIL 20 MG TABLET PO SCH (09:34)
[2021-01-18] MEDS: ARIPiprazole 10 MG TABLET PO SCH (09:34)
[2021-01-18] MEDS: PRENATAL VITAMINS W/ FOLIC ACID TABLET (FP) PO SCH (09:34)
[2021-01-18] MEDS: amLODIPine BESYLATE 10 MG TABLET (FP) PO SCH (09:34)
[2021-01-18] MEDS: THIAMINE HCL 100 MG TABLET (FP) PO SCH (21:23)
[2021-01-18] MEDS: MELATONIN 5 MG TABLETS PO SCH (21:23)
[2021-01-18] MEDS: QUEtiapine FUMARATE 200 MG TABLET PO SCH (21:23)
[2021-01-18] MEDS: ATORVASTATIN CA 10 MG TABLET (FP) PO SCH (21:23)
[2021-01-19] MEDS ORDERED: ARIPiprazole 5 MG TABLET ONE (08:47)
[2021-01-19 10:07] LABS: SARS-CoV-2 NAA Not Detected (Not Detected)
[2021-01-19] MEDS: amLODIPine BESYLATE 10 MG TABLET (FP) PO SCH (10:08)
[2021-01-19] MEDS: ARIPiprazole 10 MG TABLET PO SCH (10:08)
[2021-01-19] MEDS: PRENATAL VITAMINS W/ FOLIC ACID TABLET (FP) PO SCH (10:08)
[2021-01-19] MEDS: LISINOPRIL 20 MG TABLET PO SCH (10:08)
[2021-01-19] MEDS: ATORVASTATIN CA 10 MG TABLET (FP) PO SCH (21:26)
[2021-01-19] MEDS: MELATONIN 5 MG TABLETS PO SCH (21:26)
[2021-01-19] MEDS: THIAMINE HCL 100 MG TABLET (FP) PO SCH (21:26)
[2021-01-19] MEDS: QUEtiapine FUMARATE 200 MG TABLET PO SCH (21:27)
[2021-01-20] MEDS: amLODIPine BESYLATE 10 MG TABLET (FP) PO SCH (09:31)
[2021-01-20] MEDS: PRENATAL VITAMINS W/ FOLIC ACID TABLET (FP) PO SCH (09:31)
[2021-01-20] MEDS: LISINOPRIL 20 MG TABLET PO SCH (09:31)
[2021-01-20] MEDS: ARIPiprazole 10 MG TABLET PO SCH (09:31)
[2021-01-20] MEDS: ATORVASTATIN CA 10 MG TABLET (FP) PO SCH (21:35)
[2021-01-20] MEDS: QUEtiapine FUMARATE 200 MG TABLET PO SCH (21:36)
[2021-01-20] MEDS: THIAMINE HCL 100 MG TABLET (FP) PO SCH (21:36)
[2021-01-20] MEDS: MELATONIN 5 MG TABLETS PO SCH (21:36)
[2021-01-21] MEDS ORDERED: ARIPiprazole 5 MG TABLET ONE (08:44)
[2021-01-21] MEDS: ARIPiprazole 10 MG TABLET PO SCH (09:20)
[2021-01-21] MEDS: amLODIPine BESYLATE 10 MG TABLET (FP) PO SCH (09:20)
[2021-01-21] MEDS: LISINOPRIL 20 MG TABLET PO SCH (09:20)
[2021-01-21] MEDS: PRENATAL VITAMINS W/ FOLIC ACID TABLET (FP) PO SCH (09:21)
[2021-01-21] MEDS: ATORVASTATIN CA 10 MG TABLET (FP) PO SCH (21:31)
[2021-01-21] MEDS: MELATONIN 5 MG TABLETS PO SCH (21:31)
[2021-01-21] MEDS: THIAMINE HCL 100 MG TABLET (FP) PO SCH (21:31)
[2021-01-21] MEDS: QUEtiapine FUMARATE 200 MG TABLET PO SCH (21:31)
[2021-01-22] MEDS ORDERED: PT OWN MED DRAWER 7, Y5N ONE (08:56)
[2021-01-22] MEDS: amLODIPine BESYLATE 10 MG TABLET (FP) PO SCH (09:42)
[2021-01-22] MEDS: LISINOPRIL 20 MG TABLET PO SCH (09:42)
[2021-01-22] MEDS: ARIPiprazole 10 MG TABLET PO SCH (09:42)
[2021-01-22] MEDS: PRENATAL VITAMINS W/ FOLIC ACID TABLET (FP) PO SCH (09:42)
[2021-01-22] MEDS ORDERED: MASKS NR ONE ×2 (12:39→18:37)
[2021-01-22] MEDS: MELATONIN 5 MG TABLETS PO SCH (21:12)
[2021-01-22] MEDS: THIAMINE HCL 100 MG TABLET (FP) PO SCH (21:12)
[2021-01-22] MEDS: QUEtiapine FUMARATE 200 MG TABLET PO SCH (21:12)
[2021-01-22] MEDS: ATORVASTATIN CA 10 MG TABLET (FP) PO SCH (21:13)
[2021-01-23] MEDS ORDERED: ARIPiprazole 5 MG TABLET ONE (08:26)
[2021-01-23] MEDS: ARIPiprazole 10 MG TABLET PO SCH (09:50)
[2021-01-23] MEDS: LISINOPRIL 20 MG TABLET PO SCH (09:51)
[2021-01-23] MEDS: amLODIPine BESYLATE 10 MG TABLET (FP) PO SCH (09:51)
[2021-01-23] MEDS: PRENATAL VITAMINS W/ FOLIC ACID TABLET (FP) PO SCH (09:51)
[2021-01-23] MEDS: QUEtiapine FUMARATE 200 MG TABLET PO SCH (21:30)
[2021-01-23] MEDS: MELATONIN 5 MG TABLETS PO SCH (21:30)
[2021-01-23] MEDS: THIAMINE HCL 100 MG TABLET (FP) PO SCH (21:30)
[2021-01-23] MEDS: ATORVASTATIN CA 10 MG TABLET (FP) PO SCH (21:30)
[2021-01-24] MEDS ORDERED: ARIPiprazole 5 MG TABLET ONE (08:10)
[2021-01-24] MEDS: PRENATAL VITAMINS W/ FOLIC ACID TABLET (FP) PO SCH (09:02)
[2021-01-24] MEDS: LISINOPRIL 20 MG TABLET PO SCH (09:02)
[2021-01-24] MEDS: ARIPiprazole 10 MG TABLET PO SCH (09:03)
[2021-01-24] MEDS: amLODIPine BESYLATE 10 MG TABLET (FP) PO SCH (09:03)
[2021-01-24] MEDS ORDERED: PT OWN MED DRAWER 7, Y5N ONE (09:03)
[2021-01-24] MEDS: MELATONIN 5 MG TABLETS PO SCH (21:16)
[2021-01-24] MEDS: THIAMINE HCL 100 MG TABLET (FP) PO SCH (21:16)
[2021-01-24] MEDS: ATORVASTATIN CA 10 MG TABLET (FP) PO SCH (21:16)
[2021-01-24] MEDS: QUEtiapine FUMARATE 200 MG TABLET PO SCH (21:16)
[2021-01-25] MEDS: amLODIPine BESYLATE 10 MG TABLET (FP) PO SCH (10:01)
[2021-01-25] MEDS: LISINOPRIL 20 MG TABLET PO SCH (10:01)
[2021-01-25] MEDS: ARIPiprazole 10 MG TABLET PO SCH (10:01)
[2021-01-25] MEDS: PRENATAL VITAMINS W/ FOLIC ACID TABLET (FP) PO SCH (10:02)
[2021-01-25] MEDS: MELATONIN 5 MG TABLETS PO SCH (21:16)
[2021-01-25] MEDS: ATORVASTATIN CA 10 MG TABLET (FP) PO SCH (21:16)
[2021-01-25] MEDS: THIAMINE HCL 100 MG TABLET (FP) PO SCH (21:16)
[2021-01-25] MEDS: QUEtiapine FUMARATE 200 MG TABLET PO SCH (21:16)
[2021-01-26] MEDS ORDERED: ARIPiprazole 5 MG TABLET ONE (09:07)
[2021-01-26] MEDS: amLODIPine BESYLATE 10 MG TABLET (FP) PO SCH (10:15)
[2021-01-26] MEDS: PRENATAL VITAMINS W/ FOLIC ACID TABLET (FP) PO SCH (10:15)
[2021-01-26] MEDS: ARIPiprazole 10 MG TABLET PO SCH (10:15)
[2021-01-26] MEDS: LISINOPRIL 20 MG TABLET PO SCH (10:16)
[2021-01-26] MEDS: MELATONIN 5 MG TABLETS PO SCH (21:24)
[2021-01-26] MEDS: THIAMINE HCL 100 MG TABLET (FP) PO SCH (21:24)
[2021-01-26] MEDS: ATORVASTATIN CA 10 MG TABLET (FP) PO SCH (21:24)
[2021-01-26] MEDS: QUEtiapine FUMARATE 200 MG TABLET PO SCH (21:24)
[2021-01-27 07:20] VITALS: TEMP 97.5
[2021-01-27] MEDS ORDERED: ARIPiprazole 5 MG TABLET ONE (08:55)
[2021-01-27 09:19] VITALS: BP 127/76; PULSE 82
[2021-01-27] MEDS: PRENATAL VITAMINS W/ FOLIC ACID TABLET (FP) PO SCH (10:13)
[2021-01-27] MEDS: amLODIPine BESYLATE 10 MG TABLET (FP) PO SCH (10:13)
[2021-01-27] MEDS: LISINOPRIL 20 MG TABLET PO SCH (10:14)
[2021-01-27] MEDS: ARIPiprazole 10 MG TABLET PO SCH (10:15)
[2021-01-27] MEDS ORDERED: PT OWN MED DRAWER 7, Y5N ONE (10:16)
[2021-01-27] MEDS: THIAMINE HCL 100 MG TABLET (FP) PO SCH (21:15)
[2021-01-27] MEDS: MELATONIN 5 MG TABLETS PO SCH (21:15)
[2021-01-27] MEDS: ATORVASTATIN CA 10 MG TABLET (FP) PO SCH (21:16)
[2021-01-27] MEDS: QUEtiapine FUMARATE 200 MG TABLET PO SCH (21:16)
== END 2021-01-28 07:10 | disposition home or self-care (01) | DRG 772 ==
LOC: YASAS 11:29 → Y3E 17:48
PROVIDERS: ADMIT Allergy & Immunology; ATTEND Allergy & Immunology
PROC: HZ42ZZZ Group Counseling for Substance Abuse Treatment, Cognitive-Behavioral (ICD-10-PCS; principal; 2021-01-14)
DX: F10.20 Alcohol dependence, uncomplicated (principal); F14.20 Cocaine dependence, uncomplicated; F19.282 Other psychoactive substance dependence with psychoactive substance-induced sleep disorder; F19.24 Other psychoactive substance dependence with psychoactive substance-induced mood disorder; F31.9 Bipolar disorder, unspecified; F41.9 Anxiety disorder, unspecified; E78.5 Hyperlipidemia, unspecified; I10 Essential (primary) hypertension; J45.20 Mild intermittent asthma, uncomplicated; G47.00 Insomnia, unspecified; G40.89 Other seizures; Z87.891 Personal history of nicotine dependence; Z88.0 Allergy status to penicillin; Z88.8 Allergy status to other drugs, medicaments and biological substances; Z91.013 Allergy to seafood
CPT/HCPCS: 36415; 80053; 81003; 85027; 86780; 93005; 93010; C9803; U0003; U0005

== ENCOUNTER 2021-09-16 11:22 | Inpatient (IN) | payer OTHER ==
[2021-09-16] MEDS ORDERED: MAGNESIUM HYDROX 2400MG/30ML ORAL SUSPENSION 30 ML CUP PO PRN (12:18)
[2021-09-16] MEDS ORDERED: ACETAMINOPHEN 325 MG TABLET (FP) PO PRN (12:18)
[2021-09-16] MEDS ORDERED: IBUPROFEN 400 MG TABLET (FP) PO PRN (12:18)
[2021-09-16] MEDS ORDERED: MAG HYDROX/AL HYDROX/SIMETH 30 ML UNIT-DOSE CUP PO PRN (12:18)
[2021-09-16] MEDS ORDERED: guaiFENesin 200 MG/10 ML 10 ML UNIT-DOSE CUPS PO PRN (12:18)
[2021-09-16] MEDS ORDERED: MAGNESIUM CITRATE 300 ML BOTTLE PO PRN (12:18)
[2021-09-16] MEDS ORDERED: P-EPHED 60MG/TRIPROLIDI 2.5MG TABLET PO PRN (12:18)
[2021-09-16] MEDS ORDERED: LOPERAMIDE HCL 2 MG CAPSULE PO PRN (12:18)
[2021-09-16] MEDS ORDERED: ALBUTEROL SO4 HFA INHALER IH PRN (12:20)
[2021-09-16 13:18] VITALS: BMI 34.9
[2021-09-16] MEDS: PRENATAL VITAMINS W/ FOLIC ACID TABLET (FP) PO SCH (13:59)
[2021-09-16] MEDS ORDERED: hydrOXYzine PAMOATE 25 MG CAPSULE (FP) PO SCH (14:00)
[2021-09-16] MEDS ORDERED: MASKS NR ONE (14:08)
[2021-09-16] MEDS ORDERED: PT OWN MED DRAWER 7, Y5N ONE ×2 (14:16→20:30)
[2021-09-16 15:54] LABS: HEMOGLOBIN 13.6 GM/dL (11.7-16.9); MCH 31.1 pg (25.7-33.7); MCHC 34.1 g/dl (32.0-35.9); MEAN CELL VOLUME 91.2 fl (80-96); MEAN PLT VOLUME 8.1 fl (7.5-11.1); PLATELET COUNT 320 10^3/uL (134-434); RBC 4.38 M/mm3 (4.00-5.60); RDW 13.2 % (11.9-15.9); WHITE BLOOD COUNT 7.7 K/mm3 (4.0-10.0)
[2021-09-16 16:09] LABS: CALCIUM 9.2 mg/dL (8.5-10.1)
[2021-09-16 16:10] LABS: ALBUMIN 3.3 g/dl (3.4-5.0); BLOOD UREA NITROGEN 11.2 mg/dL (7-18)
[2021-09-16 16:14] LABS: BILIRUBIN,TOTAL 0.5 mg/dL (0.2-1); TOT PROT 7.4 g/dl (6.4-8.2)
[2021-09-16 16:34] LABS: SYPHILIS W/ RPR CONF NON-REACTIVE (NONREACTIVE)
[2021-09-16] MEDS: ATORVASTATIN CA 10 MG TABLET (FP) PO SCH (21:20)
[2021-09-16] MEDS: THIAMINE HCL 100 MG TABLET (FP) PO SCH (21:20)
[2021-09-16] MEDS ORDERED: MELATONIN 5 MG TABLETS PO SCH (22:00)
[2021-09-17] MEDS: HYDROCHLOROTHIAZIDE 12.5 MG CAPSULE (FP) PO SCH (10:10)
[2021-09-17] MEDS: PRENATAL VITAMINS W/ FOLIC ACID TABLET (FP) PO SCH (10:11)
[2021-09-17] MEDS: LISINOPRIL 20 MG TABLET PO SCH (10:11)
[2021-09-17 15:53] LABS: PH,URINE 8.5 (5.0-8.0); URINE APPEARANCE CLEAR; URINE BILIRUBIN NEGATIVE (NEGATIVE); URINE COLOR YELLOW; URINE GLUCOSE (UA) NEGATIVE (NEGATIVE); URINE KETONE NEGATIVE (NEGATIVE); URINE LEUK ESTERASE NEGATIVE (NEGATIVE); URINE NITRITE NEGATIVE (NEGATIVE); URINE PROTEIN NEGATIVE (NEGATIVE); URINE UROBILINOGEN 0.2 mg/dL (0.2-1.0)
[2021-09-17] MEDS: ATORVASTATIN CA 10 MG TABLET (FP) PO SCH (21:44)
[2021-09-17] MEDS: QUEtiapine FUMARATE 200 MG TABLET PO SCH (21:44)
[2021-09-17] MEDS: THIAMINE HCL 100 MG TABLET (FP) PO SCH (21:44)
[2021-09-18] MEDS: PRENATAL VITAMINS W/ FOLIC ACID TABLET (FP) PO SCH (09:38)
[2021-09-18] MEDS: HYDROCHLOROTHIAZIDE 12.5 MG CAPSULE (FP) PO SCH (09:38)
[2021-09-18] MEDS: LISINOPRIL 20 MG TABLET PO SCH (09:38)
[2021-09-18] MEDS ORDERED: PT OWN MED DRAWER 7, Y5N ONE (20:04)
[2021-09-18] MEDS: THIAMINE HCL 100 MG TABLET (FP) PO SCH (21:41)
[2021-09-18] MEDS: ATORVASTATIN CA 10 MG TABLET (FP) PO SCH (21:41)
[2021-09-18] MEDS: QUEtiapine FUMARATE 200 MG TABLET PO SCH (21:41)
[2021-09-19] MEDS ORDERED: METOPROLOL TARTRATE 25 MG TABLET (FP) PO ONE (06:24)
[2021-09-19] MEDS: HYDROCHLOROTHIAZIDE 12.5 MG CAPSULE (FP) PO SCH (09:22)
[2021-09-19] MEDS: PRENATAL VITAMINS W/ FOLIC ACID TABLET (FP) PO SCH (09:22)
[2021-09-19] MEDS: LISINOPRIL 20 MG TABLET PO SCH (09:22)
[2021-09-19] MEDS ORDERED: PT OWN MED DRAWER 7, Y5N ONE (20:08)
[2021-09-19] MEDS: ATORVASTATIN CA 10 MG TABLET (FP) PO SCH (21:33)
[2021-09-19] MEDS: THIAMINE HCL 100 MG TABLET (FP) PO SCH (21:33)
[2021-09-19] MEDS: QUEtiapine FUMARATE 200 MG TABLET PO SCH (21:34)
[2021-09-20] MEDS: HYDROCHLOROTHIAZIDE 12.5 MG CAPSULE (FP) PO SCH (09:34)
[2021-09-20] MEDS: PRENATAL VITAMINS W/ FOLIC ACID TABLET (FP) PO SCH (09:35)
[2021-09-20] MEDS: LISINOPRIL 20 MG TABLET PO SCH (09:35)
[2021-09-20] MEDS ORDERED: COLLOIDAL OATMEAL 1 BAR EACH TP PRN (09:36)
[2021-09-20] MEDS ORDERED: PT OWN MED DRAWER 7, Y5N ONE (19:38)
[2021-09-20] MEDS: ATORVASTATIN CA 10 MG TABLET (FP) PO SCH (22:05)
[2021-09-20] MEDS: QUEtiapine FUMARATE 200 MG TABLET PO SCH (22:06)
[2021-09-20] MEDS: THIAMINE HCL 100 MG TABLET (FP) PO SCH (22:06)
[2021-09-21] MEDS: LISINOPRIL 20 MG TABLET PO SCH ×2 (06:35→09:18)
[2021-09-21] MEDS ORDERED: PT OWN MED DRAWER 7, Y5N ONE ×2 (08:21→19:03)
[2021-09-21] MEDS: PRENATAL VITAMINS W/ FOLIC ACID TABLET (FP) PO SCH (09:18)
[2021-09-21] MEDS: HYDROCHLOROTHIAZIDE 12.5 MG CAPSULE (FP) PO SCH (09:18)
[2021-09-21] MEDS: THIAMINE HCL 100 MG TABLET (FP) PO SCH (21:46)
[2021-09-21] MEDS: QUEtiapine FUMARATE 200 MG TABLET PO SCH (21:46)
[2021-09-21] MEDS: ATORVASTATIN CA 10 MG TABLET (FP) PO SCH (21:46)
[2021-09-22] MEDS: LISINOPRIL 20 MG TABLET PO SCH (09:20)
[2021-09-22] MEDS: HYDROCHLOROTHIAZIDE 12.5 MG CAPSULE (FP) PO SCH (09:21)
[2021-09-22] MEDS: PRENATAL VITAMINS W/ FOLIC ACID TABLET (FP) PO SCH (09:21)
[2021-09-22] MEDS ORDERED: PT OWN MED DRAWER 7, Y5N ONE (19:49)
[2021-09-22] MEDS: ATORVASTATIN CA 10 MG TABLET (FP) PO SCH (21:44)
[2021-09-22] MEDS: QUEtiapine FUMARATE 200 MG TABLET PO SCH (21:44)
[2021-09-22] MEDS: THIAMINE HCL 100 MG TABLET (FP) PO SCH (21:45)
[2021-09-23] MEDS: LISINOPRIL 20 MG TABLET PO SCH (07:11)
[2021-09-23] MEDS: PRENATAL VITAMINS W/ FOLIC ACID TABLET (FP) PO SCH (09:11)
[2021-09-23] MEDS ORDERED: HYDROCHLOROTHIAZIDE 12.5 MG CAPSULE (FP) PO ONE (10:00)
[2021-09-23] MEDS: THIAMINE HCL 100 MG TABLET (FP) PO SCH (21:41)
[2021-09-23] MEDS: ATORVASTATIN CA 10 MG TABLET (FP) PO SCH (21:41)
[2021-09-23] MEDS: QUEtiapine FUMARATE 200 MG TABLET PO SCH (21:41)
[2021-09-23] MEDS ORDERED: PT OWN MED DRAWER 7, Y5N ONE (21:52)
[2021-09-24] MEDS ORDERED: HYDROCHLOROTHIAZIDE 12.5 MG CAPSULE (FP) PO SCH ×2 (06:00→10:00)
[2021-09-24] MEDS: HYDROCHLOROTHIAZIDE 12.5 MG CAPSULE (FP) PO SCH (06:55)
[2021-09-24] MEDS: LISINOPRIL 20 MG TABLET PO SCH (06:55)
[2021-09-24] MEDS: PRENATAL VITAMINS W/ FOLIC ACID TABLET (FP) PO SCH (09:15)
[2021-09-24] MEDS ORDERED: PT OWN MED DRAWER 7, Y5N ONE (19:58)
[2021-09-24] MEDS: ATORVASTATIN CA 10 MG TABLET (FP) PO SCH (21:26)
[2021-09-24] MEDS: QUEtiapine FUMARATE 200 MG TABLET PO SCH (21:26)
[2021-09-24] MEDS: THIAMINE HCL 100 MG TABLET (FP) PO SCH (21:26)
[2021-09-25] MEDS: LISINOPRIL 20 MG TABLET PO SCH (06:44)
[2021-09-25] MEDS: HYDROCHLOROTHIAZIDE 12.5 MG CAPSULE (FP) PO SCH (06:45)
[2021-09-25] MEDS: PRENATAL VITAMINS W/ FOLIC ACID TABLET (FP) PO SCH (09:34)
[2021-09-25] MEDS ORDERED: PT OWN MED DRAWER 7, Y5N ONE (19:30)
[2021-09-25] MEDS: QUEtiapine FUMARATE 200 MG TABLET PO SCH (21:49)
[2021-09-25] MEDS: THIAMINE HCL 100 MG TABLET (FP) PO SCH (21:49)
[2021-09-25] MEDS: ATORVASTATIN CA 10 MG TABLET (FP) PO SCH (21:49)
[2021-09-26] MEDS: LISINOPRIL 20 MG TABLET PO SCH (06:59)
[2021-09-26] MEDS: HYDROCHLOROTHIAZIDE 12.5 MG CAPSULE (FP) PO SCH (06:59)
[2021-09-26] MEDS: PRENATAL VITAMINS W/ FOLIC ACID TABLET (FP) PO SCH (09:32)
[2021-09-26] MEDS: THIAMINE HCL 100 MG TABLET (FP) PO SCH (21:29)
[2021-09-26] MEDS: ATORVASTATIN CA 10 MG TABLET (FP) PO SCH (21:29)
[2021-09-26] MEDS: QUEtiapine FUMARATE 200 MG TABLET PO SCH (21:30)
[2021-09-27] MEDS: LISINOPRIL 20 MG TABLET PO SCH (06:57)
[2021-09-27] MEDS: HYDROCHLOROTHIAZIDE 12.5 MG CAPSULE (FP) PO SCH (06:57)
[2021-09-27] MEDS: PRENATAL VITAMINS W/ FOLIC ACID TABLET (FP) PO SCH (09:41)
[2021-09-27] MEDS ORDERED: PT OWN MED DRAWER 7, Y5N ONE (20:23)
[2021-09-27] MEDS: QUEtiapine FUMARATE 200 MG TABLET PO SCH (21:29)
[2021-09-27] MEDS: ATORVASTATIN CA 10 MG TABLET (FP) PO SCH (21:29)
[2021-09-27] MEDS: THIAMINE HCL 100 MG TABLET (FP) PO SCH (21:29)
[2021-09-27] MEDS: hydrOXYzine PAMOATE 25 MG CAPSULE (FP) PO PRN (21:30)
[2021-09-28] MEDS ORDERED: PT OWN MED DRAWER 7, Y5N ONE ×2 (05:14→19:03)
[2021-09-28] MEDS: LISINOPRIL 20 MG TABLET PO SCH (06:32)
[2021-09-28] MEDS: HYDROCHLOROTHIAZIDE 12.5 MG CAPSULE (FP) PO SCH (06:32)
[2021-09-28] MEDS: PRENATAL VITAMINS W/ FOLIC ACID TABLET (FP) PO SCH (09:30)
[2021-09-28] MEDS: hydrOXYzine PAMOATE 25 MG CAPSULE (FP) PO PRN (21:21)
[2021-09-28] MEDS: QUEtiapine FUMARATE 200 MG TABLET PO SCH (21:21)
[2021-09-28] MEDS: THIAMINE HCL 100 MG TABLET (FP) PO SCH (21:21)
[2021-09-28] MEDS: ATORVASTATIN CA 10 MG TABLET (FP) PO SCH (21:21)
[2021-09-29] MEDS: LISINOPRIL 20 MG TABLET PO SCH (06:50)
[2021-09-29] MEDS: HYDROCHLOROTHIAZIDE 12.5 MG CAPSULE (FP) PO SCH (06:50)
[2021-09-29] MEDS: PRENATAL VITAMINS W/ FOLIC ACID TABLET (FP) PO SCH (09:41)
[2021-09-29] MEDS ORDERED: FLU VACC QS2021-22(6MOS UP)/PF 60 MCG/0.5 ML SYRINGE IM ONE (12:00)
[2021-09-29] MEDS: QUEtiapine FUMARATE 200 MG TABLET PO SCH (21:20)
[2021-09-29] MEDS: THIAMINE HCL 100 MG TABLET (FP) PO SCH (21:20)
[2021-09-29] MEDS: ATORVASTATIN CA 10 MG TABLET (FP) PO SCH (21:20)
[2021-09-30] MEDS: HYDROCHLOROTHIAZIDE 12.5 MG CAPSULE (FP) PO SCH (06:25)
[2021-09-30] MEDS: LISINOPRIL 20 MG TABLET PO SCH (06:25)
[2021-09-30] MEDS ORDERED: PT OWN MED DRAWER 7, Y5N ONE (06:48)
[2021-09-30 06:57] VITALS: BP 157/94; PULSE 80; TEMP 98
== END 2021-09-30 07:00 | disposition home or self-care (01) | DRG 895 ==
LOC: YASAS 11:22 → Y3E 12:54
PROVIDERS: ADMIT Allergy & Immunology; ATTEND Allergy & Immunology
PROC: HZ42ZZZ Group Counseling for Substance Abuse Treatment, Cognitive-Behavioral (ICD-10-PCS; principal; 2021-09-16)
DX: F10.20 Alcohol dependence, uncomplicated (principal); F14.20 Cocaine dependence, uncomplicated; F19.282 Other psychoactive substance dependence with psychoactive substance-induced sleep disorder; F19.24 Other psychoactive substance dependence with psychoactive substance-induced mood disorder; F31.9 Bipolar disorder, unspecified; I10 Essential (primary) hypertension; E78.5 Hyperlipidemia, unspecified; J45.909 Unspecified asthma, uncomplicated; E66.9 Obesity, unspecified; Z68.35 Body mass index [BMI] 35.0-35.9, adult; Z88.0 Allergy status to penicillin; Z86.69 Personal history of other diseases of the nervous system and sense organs; Z88.5 Allergy status to narcotic agent
CPT/HCPCS: 36415; 80053; 81003; 85027; 86780; 86803; 87811; 90686; 93005; 93010; C9803; G0008; U0003; U0005

== ENCOUNTER 2021-12-13 18:20 | Inpatient (IN) | payer OTHER ==
[2021-12-13] MEDS ORDERED: ALBUTEROL SO4 HFA INHALER IH PRN (19:56)
[2021-12-13] MEDS ORDERED: MAG HYDROX/AL HYDROX/SIMETH 30 ML UNIT-DOSE CUP PO PRN (19:58)
[2021-12-13] MEDS ORDERED: MAGNESIUM CITRATE 300 ML BOTTLE PO PRN (19:58)
[2021-12-13] MEDS ORDERED: MENTHOL/PHENOL 1 EACH UD MM PRN (19:58)
[2021-12-13] MEDS ORDERED: LOPERAMIDE HCL 2 MG CAPSULE PO PRN (19:58)
[2021-12-13] MEDS ORDERED: guaiFENesin 200 MG/10 ML 10 ML UNIT-DOSE CUPS PO PRN (19:58)
[2021-12-13] MEDS ORDERED: MAGNESIUM HYDROX 2400MG/30ML ORAL SUSPENSION 30 ML CUP PO PRN (19:58)
[2021-12-13] MEDS ORDERED: P-EPHED 60MG/TRIPROLIDI 2.5MG TABLET PO PRN (19:58)
[2021-12-13] MEDS ORDERED: IBUPROFEN 400 MG TABLET (FP) PO PRN (19:58)
[2021-12-14 00:43] VITALS: BMI 33.3
[2021-12-14] MEDS: ATORVASTATIN CA 20 MG TABLET (FP) PO SCH ×2 (01:43→23:49)
[2021-12-14] MEDS: THIAMINE HCL 100 MG TABLET (FP) PO SCH ×2 (01:44→23:49)
[2021-12-14] MEDS ORDERED: PATIENT'S OWN MEDICATION (NON-FORMULARY) (Lisinopril/Hydrochlorothiazide [Lisinopril-Hctz PO SCH (10:00)
[2021-12-14] MEDS: PRENATAL VITAMINS W/ FOLIC ACID TABLET (FP) PO SCH (10:47)
[2021-12-14] MEDS: LISINOPRIL 20 MG TABLET PO SCH (10:47)
[2021-12-14] MEDS: HYDROCHLOROTHIAZIDE 12.5 MG CAPSULE (FP) PO SCH (10:47)
[2021-12-15] MEDS: PRENATAL VITAMINS W/ FOLIC ACID TABLET (FP) PO SCH (10:15)
[2021-12-15] MEDS: LISINOPRIL 20 MG TABLET PO SCH (10:16)
[2021-12-15] MEDS: HYDROCHLOROTHIAZIDE 12.5 MG CAPSULE (FP) PO SCH (10:16)
[2021-12-15] MEDS: hydrOXYzine PAMOATE 25 MG CAPSULE (FP) PO PRN (10:56)
[2021-12-15] MEDS: THIAMINE HCL 100 MG TABLET (FP) PO SCH (22:42)
[2021-12-15] MEDS: ATORVASTATIN CA 20 MG TABLET (FP) PO SCH (22:42)
[2021-12-16] MEDS: HYDROCHLOROTHIAZIDE 12.5 MG CAPSULE (FP) PO SCH (10:23)
[2021-12-16] MEDS: PRENATAL VITAMINS W/ FOLIC ACID TABLET (FP) PO SCH (10:23)
[2021-12-16] MEDS: LISINOPRIL 20 MG TABLET PO SCH (10:23)
[2021-12-16] MEDS: hydrOXYzine PAMOATE 25 MG CAPSULE (FP) PO PRN (10:23)
[2021-12-16 12:48] LABS: PH,URINE 5.5 (5.0-8.0); URINE APPEARANCE CLEAR; URINE BILIRUBIN NEGATIVE (NEGATIVE); URINE COLOR YELLOW; URINE GLUCOSE (UA) NEGATIVE (NEGATIVE); URINE KETONE NEGATIVE (NEGATIVE); URINE LEUK ESTERASE NEGATIVE (NEGATIVE); URINE NITRITE NEGATIVE (NEGATIVE); URINE PROTEIN NEGATIVE (NEGATIVE); URINE UROBILINOGEN 0.2 mg/dL (0.2-1.0)
[2021-12-16 13:38] LABS: HEMATOCRIT 43.1 % (35.4-49); HEMOGLOBIN 14.6 GM/dL (11.7-16.9); MCH 31.3 pg (25.7-33.7); MCHC 33.9 g/dl (32.0-35.9); MEAN CELL VOLUME 92.2 fl (80-96); MEAN PLT VOLUME 8.5 fl (7.5-11.1); PLATELET COUNT 308 10^3/uL (134-434); RBC 4.67 M/mm3 (4.00-5.60); RDW 13.1 % (11.9-15.9); WHITE BLOOD COUNT 7.5 K/mm3 (4.0-10.0)
[2021-12-16 13:42] LABS: BLOOD UREA NITROGEN 15.8 mg/dL (7-18); CALCIUM 9.4 mg/dL (8.5-10.1)
[2021-12-16 13:44] LABS: CREATININE 1.1 mg/dL (0.55-1.3)
[2021-12-16 14:08] LABS: SARS-CoV-2 NAA Not Detected (Not Detected)
[2021-12-16] MEDS: MELATONIN 5 MG TABLETS PO PRN (21:06)
[2021-12-16] MEDS: ATORVASTATIN CA 20 MG TABLET (FP) PO SCH (21:06)
[2021-12-16] MEDS: THIAMINE HCL 100 MG TABLET (FP) PO SCH (21:06)
[2021-12-17] MEDS: LISINOPRIL 20 MG TABLET PO SCH (09:50)
[2021-12-17] MEDS: PRENATAL VITAMINS W/ FOLIC ACID TABLET (FP) PO SCH (09:50)
[2021-12-17] MEDS: HYDROCHLOROTHIAZIDE 12.5 MG CAPSULE (FP) PO SCH (09:50)
[2021-12-17] MEDS: ATORVASTATIN CA 20 MG TABLET (FP) PO SCH (22:08)
[2021-12-17] MEDS: THIAMINE HCL 100 MG TABLET (FP) PO SCH (22:08)
[2021-12-18] MEDS: ACETAMINOPHEN 325 MG TABLET (FP) PO PRN ×2 (03:49→19:15)
[2021-12-18] MEDS: hydrOXYzine PAMOATE 25 MG CAPSULE (FP) PO PRN ×2 (06:55→10:33)
[2021-12-18] MEDS: LISINOPRIL 20 MG TABLET PO SCH (10:31)
[2021-12-18] MEDS: PRENATAL VITAMINS W/ FOLIC ACID TABLET (FP) PO SCH (10:31)
[2021-12-18] MEDS: HYDROCHLOROTHIAZIDE 12.5 MG CAPSULE (FP) PO SCH (10:33)
[2021-12-18] MEDS: ATORVASTATIN CA 20 MG TABLET (FP) PO SCH (21:29)
[2021-12-18] MEDS: THIAMINE HCL 100 MG TABLET (FP) PO SCH (21:29)
[2021-12-18] MEDS: MELATONIN 5 MG TABLETS PO PRN (21:29)
[2021-12-19] MEDS: PRENATAL VITAMINS W/ FOLIC ACID TABLET (FP) PO SCH (10:28)
[2021-12-19] MEDS: LISINOPRIL 20 MG TABLET PO SCH (10:28)
[2021-12-19] MEDS: HYDROCHLOROTHIAZIDE 12.5 MG CAPSULE (FP) PO SCH (10:28)
[2021-12-19] MEDS: hydrOXYzine PAMOATE 25 MG CAPSULE (FP) PO PRN (10:29)
[2021-12-19] MEDS: MELATONIN 5 MG TABLETS PO PRN (21:21)
[2021-12-19] MEDS: THIAMINE HCL 100 MG TABLET (FP) PO SCH (21:21)
[2021-12-19] MEDS: ATORVASTATIN CA 20 MG TABLET (FP) PO SCH (21:21)
[2021-12-20] MEDS: PRENATAL VITAMINS W/ FOLIC ACID TABLET (FP) PO SCH (09:43)
[2021-12-20] MEDS: hydrOXYzine PAMOATE 25 MG CAPSULE (FP) PO PRN (09:44)
[2021-12-20] MEDS: HYDROCHLOROTHIAZIDE 12.5 MG CAPSULE (FP) PO SCH (10:12)
[2021-12-20] MEDS: LISINOPRIL 20 MG TABLET PO SCH (10:12)
[2021-12-20] MEDS: MELATONIN 5 MG TABLETS PO PRN (22:02)
[2021-12-20] MEDS: ATORVASTATIN CA 20 MG TABLET (FP) PO SCH (22:02)
[2021-12-20] MEDS: THIAMINE HCL 100 MG TABLET (FP) PO SCH (22:02)
[2021-12-21] MEDS: PRENATAL VITAMINS W/ FOLIC ACID TABLET (FP) PO SCH (09:44)
[2021-12-21] MEDS: LISINOPRIL 20 MG TABLET PO SCH (09:44)
[2021-12-21] MEDS: HYDROCHLOROTHIAZIDE 12.5 MG CAPSULE (FP) PO SCH (09:45)
[2021-12-21] MEDS ORDERED: ARIPiprazole 20 MG TABLET PO ONE (12:02)
[2021-12-21] MEDS ORDERED: ARIPiprazole 10 MG TABLET PO ONE (12:23)
[2021-12-21] MEDS: THIAMINE HCL 100 MG TABLET (FP) PO SCH (21:05)
[2021-12-21] MEDS: MELATONIN 5 MG TABLETS PO PRN (21:05)
[2021-12-21] MEDS: ATORVASTATIN CA 20 MG TABLET (FP) PO SCH (21:05)
[2021-12-21] MEDS: QUEtiapine FUMARATE 100 MG TABLET (FP) PO SCH (21:06)
[2021-12-22] MEDS ORDERED: ARIPiprazole 20 MG TABLET PO SCH (10:00)
[2021-12-22] MEDS: ARIPiprazole 10 MG TABLET PO SCH (10:40)
[2021-12-22] MEDS: PRENATAL VITAMINS W/ FOLIC ACID TABLET (FP) PO SCH (10:40)
[2021-12-22] MEDS: HYDROCHLOROTHIAZIDE 12.5 MG CAPSULE (FP) PO SCH (10:40)
[2021-12-22] MEDS: LISINOPRIL 20 MG TABLET PO SCH (10:40)
[2021-12-22] MEDS: hydrOXYzine PAMOATE 25 MG CAPSULE (FP) PO PRN (10:41)
[2021-12-22] MEDS: ATORVASTATIN CA 20 MG TABLET (FP) PO SCH (21:25)
[2021-12-22] MEDS: THIAMINE HCL 100 MG TABLET (FP) PO SCH (21:25)
[2021-12-22] MEDS: MELATONIN 5 MG TABLETS PO PRN (21:25)
[2021-12-22] MEDS: QUEtiapine FUMARATE 100 MG TABLET (FP) PO SCH (21:26)
[2021-12-23 06:55] VITALS: TEMP 98.2
[2021-12-23 09:12] VITALS: BP 143/78; PULSE 72
[2021-12-23] MEDS: HYDROCHLOROTHIAZIDE 12.5 MG CAPSULE (FP) PO SCH (09:25)
[2021-12-23] MEDS: hydrOXYzine PAMOATE 25 MG CAPSULE (FP) PO PRN (09:25)
[2021-12-23] MEDS: LISINOPRIL 20 MG TABLET PO SCH (09:25)
[2021-12-23] MEDS: ARIPiprazole 10 MG TABLET PO SCH (09:25)
== END 2021-12-23 09:40 | disposition home or self-care (01) | DRG 895 ==
LOC: YASAS 18:20 → Y3W 12-14 00:54
PROVIDERS: ADMIT Allergy & Immunology; ATTEND Allergy & Immunology
PROC: HZ42ZZZ Group Counseling for Substance Abuse Treatment, Cognitive-Behavioral (ICD-10-PCS; principal; 2021-12-14)
DX: F10.20 Alcohol dependence, uncomplicated (principal); F14.20 Cocaine dependence, uncomplicated; F19.282 Other psychoactive substance dependence with psychoactive substance-induced sleep disorder; F31.9 Bipolar disorder, unspecified; E78.5 Hyperlipidemia, unspecified; I10 Essential (primary) hypertension; J45.909 Unspecified asthma, uncomplicated; G47.00 Insomnia, unspecified; Z86.69 Personal history of other diseases of the nervous system and sense organs; Z88.0 Allergy status to penicillin; Z88.5 Allergy status to narcotic agent; Z91.013 Allergy to seafood
CPT/HCPCS: 36415; 80048; 81003; 82962; 85027; C9803; U0003; U0005

== ENCOUNTER 2022-05-12 20:53 | Inpatient (IN) | payer MEDICARE, OTHER ==
[2022-05-12 22:46] VITALS: BMI 30.4
[2022-05-12] MEDS ORDERED: ALBUTEROL SO4 HFA INHALER IH PRN (22:52)
[2022-05-12] MEDS ORDERED: MAGNESIUM HYDROX 2400MG/30ML ORAL SUSPENSION 30 ML CUP PO PRN (22:55)
[2022-05-12] MEDS ORDERED: MAGNESIUM CITRATE 300 ML BOTTLE PO PRN (22:55)
[2022-05-12] MEDS ORDERED: P-EPHED 60MG/TRIPROLIDI 2.5MG TABLET PO PRN (22:55)
[2022-05-12] MEDS ORDERED: MAG HYDROX/AL HYDROX/SIMETH 30 ML UNIT-DOSE CUP PO PRN (22:55)
[2022-05-12] MEDS ORDERED: guaiFENesin 200 MG/10 ML 10 ML UNIT-DOSE CUPS PO PRN (22:55)
[2022-05-13] MEDS ORDERED: PATIENT'S OWN MEDICATION (NON-FORMULARY) (Lisinopril/Hydrochlorothiazide [Lisinopril-Hctz PO SCH (10:00)
[2022-05-13] MEDS: HYDROCHLOROTHIAZIDE 25 MG TABLET (FP) PO SCH (10:09)
[2022-05-13] MEDS: PRENATAL VITAMINS W/ FOLIC ACID TABLET (FP) PO SCH (10:09)
[2022-05-13] MEDS: LISINOPRIL 20 MG TABLET PO SCH (10:10)
[2022-05-13 10:53] LABS: HEMATOCRIT 37.8 % (35.4-49); HEMOGLOBIN 12.9 GM/dL (11.7-16.9); MCH 30.9 pg (25.7-33.7); MCHC 34.1 g/dl (32.0-35.9); MEAN CELL VOLUME 90.8 fl (80-96); MEAN PLT VOLUME 8.5 fl (7.5-11.1); PLATELET COUNT 310 10^3/uL (134-434); RBC 4.16 M/mm3 (4.00-5.60); RDW 13.7 % (11.9-15.9); WHITE BLOOD COUNT 7.3 K/mm3 (4.0-10.0)
[2022-05-13 11:13] LABS: ALBUMIN 3.2 g/dl (3.4-5.0); BLOOD UREA NITROGEN 15.9 mg/dL (7-18)
[2022-05-13 11:16] LABS: CREATININE 0.8 mg/dL (0.55-1.3)
[2022-05-13 11:17] LABS: BILIRUBIN,TOTAL 0.6 mg/dL (0.2-1); TOT PROT 6.7 g/dl (6.4-8.2)
[2022-05-13] MEDS: THIAMINE HCL 100 MG TABLET (FP) PO SCH (21:26)
[2022-05-13] MEDS: ATORVASTATIN CA 10 MG TABLET (FP) PO SCH (21:26)
[2022-05-13] MEDS: hydrOXYzine PAMOATE 25 MG CAPSULE (FP) PO PRN (21:26)
[2022-05-13] MEDS: MELATONIN 5 MG TABLETS PO SCH ×2 (21:26→22:26)
[2022-05-13] MEDS: QUEtiapine FUMARATE 200 MG TABLET PO SCH (21:26)
[2022-05-14] MEDS ORDERED: ARIPiprazole 5 MG TABLET ONE (08:56)
[2022-05-14] MEDS: PRENATAL VITAMINS W/ FOLIC ACID TABLET (FP) PO SCH (10:21)
[2022-05-14] MEDS: HYDROCHLOROTHIAZIDE 25 MG TABLET (FP) PO SCH (10:21)
[2022-05-14] MEDS: LISINOPRIL 20 MG TABLET PO SCH (10:21)
[2022-05-14] MEDS: ARIPiprazole 10 MG TABLET PO SCH (10:22)
[2022-05-14] MEDS: ACETAMINOPHEN 325 MG TABLET (FP) PO PRN (10:22)
[2022-05-14 12:10] LABS: PH,URINE 7.5 (5.0-8.0); URINE APPEARANCE TURBID; URINE BILIRUBIN NEGATIVE (NEGATIVE); URINE COLOR YELLOW; URINE GLUCOSE (UA) NEGATIVE (NEGATIVE); URINE KETONE NEGATIVE (NEGATIVE); URINE LEUK ESTERASE NEGATIVE (NEGATIVE); URINE NITRITE NEGATIVE (NEGATIVE); URINE PROTEIN NEGATIVE (NEGATIVE)
[2022-05-14] MEDS: ATORVASTATIN CA 10 MG TABLET (FP) PO SCH (21:16)
[2022-05-14] MEDS: MELATONIN 5 MG TABLETS PO SCH (21:16)
[2022-05-14] MEDS: THIAMINE HCL 100 MG TABLET (FP) PO SCH (21:16)
[2022-05-14] MEDS: QUEtiapine FUMARATE 200 MG TABLET PO SCH (21:16)
[2022-05-15] MEDS ORDERED: ARIPiprazole 5 MG TABLET ONE (08:50)
[2022-05-15] MEDS: LISINOPRIL 20 MG TABLET PO SCH (10:22)
[2022-05-15] MEDS: HYDROCHLOROTHIAZIDE 25 MG TABLET (FP) PO SCH (10:25)
[2022-05-15] MEDS: ARIPiprazole 10 MG TABLET PO SCH (10:27)
[2022-05-15] MEDS: PRENATAL VITAMINS W/ FOLIC ACID TABLET (FP) PO SCH (10:28)
[2022-05-15] MEDS: THIAMINE HCL 100 MG TABLET (FP) PO SCH (21:30)
[2022-05-15] MEDS: ATORVASTATIN CA 10 MG TABLET (FP) PO SCH (21:30)
[2022-05-15] MEDS: QUEtiapine FUMARATE 200 MG TABLET PO SCH (21:30)
[2022-05-15] MEDS: MELATONIN 5 MG TABLETS PO SCH (21:30)
[2022-05-16] MEDS: ACETAMINOPHEN 325 MG TABLET (FP) PO PRN (07:46)
[2022-05-16] MEDS ORDERED: ARIPiprazole 5 MG TABLET ONE (09:06)
[2022-05-16] MEDS: PRENATAL VITAMINS W/ FOLIC ACID TABLET (FP) PO SCH (10:54)
[2022-05-16] MEDS: LISINOPRIL 20 MG TABLET PO SCH (10:54)
[2022-05-16] MEDS: ARIPiprazole 10 MG TABLET PO SCH (10:54)
[2022-05-16] MEDS: HYDROCHLOROTHIAZIDE 25 MG TABLET (FP) PO SCH (10:54)
[2022-05-16] MEDS: THIAMINE HCL 100 MG TABLET (FP) PO SCH (21:06)
[2022-05-16] MEDS: MELATONIN 5 MG TABLETS PO SCH (21:06)
[2022-05-16] MEDS: ATORVASTATIN CA 10 MG TABLET (FP) PO SCH (21:07)
[2022-05-16] MEDS: QUEtiapine FUMARATE 200 MG TABLET PO SCH (21:07)
[2022-05-17] MEDS ORDERED: ARIPiprazole 5 MG TABLET ONE (08:57)
[2022-05-17] MEDS: LOPERAMIDE HCL 2 MG CAPSULE PO PRN ×2 (09:07→15:12)
[2022-05-17] MEDS: HYDROCHLOROTHIAZIDE 25 MG TABLET (FP) PO SCH (09:07)
[2022-05-17] MEDS: LISINOPRIL 20 MG TABLET PO SCH (09:08)
[2022-05-17] MEDS: PRENATAL VITAMINS W/ FOLIC ACID TABLET (FP) PO SCH (09:08)
[2022-05-17] MEDS: ARIPiprazole 10 MG TABLET PO SCH (09:08)
[2022-05-17] MEDS ORDERED: DIPHENOXYLATE 2.5/ATROPINE.025 1 COMBO TABLET PO PRN (16:06)
[2022-05-17] MEDS: THIAMINE HCL 100 MG TABLET (FP) PO SCH (21:09)
[2022-05-17] MEDS: MELATONIN 5 MG TABLETS PO SCH (21:10)
[2022-05-17] MEDS: ATORVASTATIN CA 10 MG TABLET (FP) PO SCH (21:10)
[2022-05-17] MEDS: QUEtiapine FUMARATE 200 MG TABLET PO SCH (21:10)
[2022-05-18] MEDS ORDERED: ARIPiprazole 5 MG TABLET ONE (08:47)
[2022-05-18] MEDS: ARIPiprazole 10 MG TABLET PO SCH (09:53)
[2022-05-18] MEDS: LISINOPRIL 20 MG TABLET PO SCH (09:54)
[2022-05-18] MEDS: PRENATAL VITAMINS W/ FOLIC ACID TABLET (FP) PO SCH (09:54)
[2022-05-18] MEDS: HYDROCHLOROTHIAZIDE 25 MG TABLET (FP) PO SCH (09:54)
[2022-05-18] MEDS: QUEtiapine FUMARATE 200 MG TABLET PO SCH (21:18)
[2022-05-18] MEDS: MELATONIN 5 MG TABLETS PO SCH (21:18)
[2022-05-18] MEDS: THIAMINE HCL 100 MG TABLET (FP) PO SCH (21:18)
[2022-05-18] MEDS: ATORVASTATIN CA 10 MG TABLET (FP) PO SCH (21:18)
[2022-05-19] MEDS ORDERED: ARIPiprazole 5 MG TABLET ONE (08:55)
[2022-05-19] MEDS: HYDROCHLOROTHIAZIDE 25 MG TABLET (FP) PO SCH (10:01)
[2022-05-19] MEDS: ARIPiprazole 10 MG TABLET PO SCH (10:01)
[2022-05-19] MEDS: PRENATAL VITAMINS W/ FOLIC ACID TABLET (FP) PO SCH (10:01)
[2022-05-19] MEDS: LISINOPRIL 20 MG TABLET PO SCH (10:01)
[2022-05-19] MEDS: ATORVASTATIN CA 10 MG TABLET (FP) PO SCH (21:15)
[2022-05-19] MEDS: QUEtiapine FUMARATE 200 MG TABLET PO SCH (21:15)
[2022-05-19] MEDS: MELATONIN 5 MG TABLETS PO SCH (21:15)
[2022-05-19] MEDS: THIAMINE HCL 100 MG TABLET (FP) PO SCH (21:15)
[2022-05-20] MEDS ORDERED: ARIPiprazole 5 MG TABLET ONE (09:02)
[2022-05-20] MEDS: ARIPiprazole 10 MG TABLET PO SCH (09:56)
[2022-05-20] MEDS: PRENATAL VITAMINS W/ FOLIC ACID TABLET (FP) PO SCH (09:56)
[2022-05-20] MEDS: HYDROCHLOROTHIAZIDE 25 MG TABLET (FP) PO SCH (09:56)
[2022-05-20] MEDS: LISINOPRIL 20 MG TABLET PO SCH (09:56)
[2022-05-20] MEDS: THIAMINE HCL 100 MG TABLET (FP) PO SCH (21:05)
[2022-05-20] MEDS: hydrOXYzine PAMOATE 25 MG CAPSULE (FP) PO PRN (21:05)
[2022-05-20] MEDS: ATORVASTATIN CA 10 MG TABLET (FP) PO SCH (21:05)
[2022-05-20] MEDS: MELATONIN 5 MG TABLETS PO SCH (21:05)
[2022-05-20] MEDS: QUEtiapine FUMARATE 200 MG TABLET PO SCH (21:05)
[2022-05-21] MEDS: ARIPiprazole 10 MG TABLET PO SCH (10:08)
[2022-05-21] MEDS: LISINOPRIL 20 MG TABLET PO SCH (10:08)
[2022-05-21] MEDS: HYDROCHLOROTHIAZIDE 25 MG TABLET (FP) PO SCH (10:08)
[2022-05-21] MEDS: PRENATAL VITAMINS W/ FOLIC ACID TABLET (FP) PO SCH (10:09)
[2022-05-21] MEDS: THIAMINE HCL 100 MG TABLET (FP) PO SCH (21:34)
[2022-05-21] MEDS: QUEtiapine FUMARATE 200 MG TABLET PO SCH (21:34)
[2022-05-21] MEDS: MELATONIN 5 MG TABLETS PO SCH (21:34)
[2022-05-21] MEDS: ATORVASTATIN CA 10 MG TABLET (FP) PO SCH (21:34)
[2022-05-21] MEDS: hydrOXYzine PAMOATE 25 MG CAPSULE (FP) PO PRN (21:34)
[2022-05-22] MEDS: HYDROCHLOROTHIAZIDE 25 MG TABLET (FP) PO SCH (09:33)
[2022-05-22] MEDS: LISINOPRIL 20 MG TABLET PO SCH (09:33)
[2022-05-22] MEDS: ARIPiprazole 10 MG TABLET PO SCH (09:33)
[2022-05-22] MEDS: PRENATAL VITAMINS W/ FOLIC ACID TABLET (FP) PO SCH (09:33)
[2022-05-22] MEDS: THIAMINE HCL 100 MG TABLET (FP) PO SCH (21:49)
[2022-05-22] MEDS: MELATONIN 5 MG TABLETS PO SCH (21:50)
[2022-05-22] MEDS: QUEtiapine FUMARATE 200 MG TABLET PO SCH (21:52)
[2022-05-22] MEDS: ATORVASTATIN CA 10 MG TABLET (FP) PO SCH (21:52)
[2022-05-23] MEDS ORDERED: ARIPiprazole 5 MG TABLET ONE (08:56)
[2022-05-23] MEDS: ARIPiprazole 10 MG TABLET PO SCH (10:01)
[2022-05-23] MEDS: LISINOPRIL 20 MG TABLET PO SCH (10:02)
[2022-05-23] MEDS: HYDROCHLOROTHIAZIDE 25 MG TABLET (FP) PO SCH (10:02)
[2022-05-23] MEDS: PRENATAL VITAMINS W/ FOLIC ACID TABLET (FP) PO SCH (10:02)
[2022-05-23] MEDS: THIAMINE HCL 100 MG TABLET (FP) PO SCH (21:23)
[2022-05-23] MEDS: ATORVASTATIN CA 10 MG TABLET (FP) PO SCH (21:23)
[2022-05-23] MEDS: MELATONIN 5 MG TABLETS PO SCH (21:23)
[2022-05-23] MEDS: QUEtiapine FUMARATE 200 MG TABLET PO SCH (21:23)
[2022-05-24] MEDS ORDERED: BISMUTH SUBSALICYLATE 524 MG/30 ML PO PRN (02:41)
[2022-05-24] MEDS: ARIPiprazole 10 MG TABLET PO SCH (09:19)
[2022-05-24] MEDS: HYDROCHLOROTHIAZIDE 25 MG TABLET (FP) PO SCH (09:19)
[2022-05-24] MEDS: LISINOPRIL 20 MG TABLET PO SCH (09:19)
[2022-05-24] MEDS: PRENATAL VITAMINS W/ FOLIC ACID TABLET (FP) PO SCH (09:20)
[2022-05-24] MEDS: THIAMINE HCL 100 MG TABLET (FP) PO SCH (21:21)
[2022-05-24] MEDS: ATORVASTATIN CA 10 MG TABLET (FP) PO SCH (21:21)
[2022-05-24] MEDS: MELATONIN 5 MG TABLETS PO SCH (21:21)
[2022-05-24] MEDS: QUEtiapine FUMARATE 200 MG TABLET PO SCH (21:21)
[2022-05-25] MEDS ORDERED: ARIPiprazole 5 MG TABLET ONE (08:37)
[2022-05-25] MEDS: ARIPiprazole 10 MG TABLET PO SCH (09:56)
[2022-05-25] MEDS: PRENATAL VITAMINS W/ FOLIC ACID TABLET (FP) PO SCH (09:56)
[2022-05-25] MEDS: LISINOPRIL 20 MG TABLET PO SCH (09:59)
[2022-05-25] MEDS: HYDROCHLOROTHIAZIDE 25 MG TABLET (FP) PO SCH (09:59)
[2022-05-25] MEDS: ATORVASTATIN CA 10 MG TABLET (FP) PO SCH (21:24)
[2022-05-25] MEDS: THIAMINE HCL 100 MG TABLET (FP) PO SCH (21:24)
[2022-05-25] MEDS: QUEtiapine FUMARATE 200 MG TABLET PO SCH (21:24)
[2022-05-25] MEDS: MELATONIN 5 MG TABLETS PO SCH (21:24)
[2022-05-26] MEDS ORDERED: ARIPiprazole 5 MG TABLET ONE (09:02)
[2022-05-26] MEDS: ARIPiprazole 10 MG TABLET PO SCH (10:06)
[2022-05-26] MEDS: HYDROCHLOROTHIAZIDE 25 MG TABLET (FP) PO SCH (10:06)
[2022-05-26] MEDS: LISINOPRIL 20 MG TABLET PO SCH (10:07)
[2022-05-26] MEDS: PRENATAL VITAMINS W/ FOLIC ACID TABLET (FP) PO SCH (10:07)
[2022-05-26] MEDS: MELATONIN 5 MG TABLETS PO SCH (21:24)
[2022-05-26] MEDS: THIAMINE HCL 100 MG TABLET (FP) PO SCH (21:24)
[2022-05-26] MEDS: QUEtiapine FUMARATE 200 MG TABLET PO SCH (21:24)
[2022-05-26] MEDS: ATORVASTATIN CA 10 MG TABLET (FP) PO SCH (21:25)
[2022-05-27] MEDS: LISINOPRIL 20 MG TABLET PO SCH (10:04)
[2022-05-27] MEDS: HYDROCHLOROTHIAZIDE 25 MG TABLET (FP) PO SCH (10:05)
[2022-05-27] MEDS: PRENATAL VITAMINS W/ FOLIC ACID TABLET (FP) PO SCH (10:05)
[2022-05-27] MEDS: ARIPiprazole 10 MG TABLET PO SCH (10:05)
[2022-05-27] MEDS: QUEtiapine FUMARATE 200 MG TABLET PO SCH (21:28)
[2022-05-27] MEDS: THIAMINE HCL 100 MG TABLET (FP) PO SCH (21:29)
[2022-05-27] MEDS: MELATONIN 5 MG TABLETS PO SCH (21:29)
[2022-05-27] MEDS: ATORVASTATIN CA 10 MG TABLET (FP) PO SCH (21:29)
[2022-05-28] MEDS ORDERED: ARIPiprazole 5 MG TABLET ONE (08:28)
[2022-05-28] MEDS: HYDROCHLOROTHIAZIDE 25 MG TABLET (FP) PO SCH (09:56)
[2022-05-28] MEDS: LISINOPRIL 20 MG TABLET PO SCH (09:56)
[2022-05-28] MEDS: PRENATAL VITAMINS W/ FOLIC ACID TABLET (FP) PO SCH (09:56)
[2022-05-28] MEDS: ARIPiprazole 10 MG TABLET PO SCH (09:56)
[2022-05-28] MEDS: ATORVASTATIN CA 10 MG TABLET (FP) PO SCH (21:19)
[2022-05-28] MEDS: MELATONIN 5 MG TABLETS PO SCH (21:19)
[2022-05-28] MEDS: THIAMINE HCL 100 MG TABLET (FP) PO SCH (21:19)
[2022-05-28] MEDS: QUEtiapine FUMARATE 200 MG TABLET PO SCH (21:20)
[2022-05-29] MEDS ORDERED: ARIPiprazole 5 MG TABLET ONE (09:01)
[2022-05-29] MEDS: LISINOPRIL 20 MG TABLET PO SCH (10:08)
[2022-05-29] MEDS: ARIPiprazole 10 MG TABLET PO SCH (10:09)
[2022-05-29] MEDS: HYDROCHLOROTHIAZIDE 25 MG TABLET (FP) PO SCH (10:09)
[2022-05-29] MEDS: PRENATAL VITAMINS W/ FOLIC ACID TABLET (FP) PO SCH (10:09)
[2022-05-29] MEDS: QUEtiapine FUMARATE 200 MG TABLET PO SCH (21:24)
[2022-05-29] MEDS: THIAMINE HCL 100 MG TABLET (FP) PO SCH (21:24)
[2022-05-29] MEDS: MELATONIN 5 MG TABLETS PO SCH (21:24)
[2022-05-29] MEDS: ATORVASTATIN CA 10 MG TABLET (FP) PO SCH (21:24)
[2022-05-30] MEDS ORDERED: ARIPiprazole 5 MG TABLET ONE (09:29)
[2022-05-30] MEDS: LISINOPRIL 20 MG TABLET PO SCH (10:04)
[2022-05-30] MEDS: HYDROCHLOROTHIAZIDE 25 MG TABLET (FP) PO SCH (10:04)
[2022-05-30] MEDS: ARIPiprazole 10 MG TABLET PO SCH (10:05)
[2022-05-30] MEDS: PRENATAL VITAMINS W/ FOLIC ACID TABLET (FP) PO SCH (10:05)
[2022-05-30] MEDS: hydrOXYzine PAMOATE 25 MG CAPSULE (FP) PO PRN (21:41)
[2022-05-30] MEDS: QUEtiapine FUMARATE 200 MG TABLET PO SCH (21:41)
[2022-05-30] MEDS: ATORVASTATIN CA 10 MG TABLET (FP) PO SCH (21:41)
[2022-05-30] MEDS: THIAMINE HCL 100 MG TABLET (FP) PO SCH (21:41)
[2022-05-30] MEDS: MELATONIN 5 MG TABLETS PO SCH (21:42)
[2022-05-31] MEDS: HYDROCHLOROTHIAZIDE 25 MG TABLET (FP) PO SCH (10:43)
[2022-05-31] MEDS: ARIPiprazole 10 MG TABLET PO SCH (10:43)
[2022-05-31] MEDS: PRENATAL VITAMINS W/ FOLIC ACID TABLET (FP) PO SCH (10:44)
[2022-05-31] MEDS: LISINOPRIL 20 MG TABLET PO SCH (10:54)
[2022-05-31] MEDS: ATORVASTATIN CA 10 MG TABLET (FP) PO SCH (21:51)
[2022-05-31] MEDS: QUEtiapine FUMARATE 200 MG TABLET PO SCH (21:51)
[2022-05-31] MEDS: THIAMINE HCL 100 MG TABLET (FP) PO SCH (21:51)
[2022-05-31] MEDS: MELATONIN 5 MG TABLETS PO SCH (21:51)
[2022-06-01] MEDS ORDERED: ARIPiprazole 5 MG TABLET ONE (08:57)
[2022-06-01] MEDS: ARIPiprazole 10 MG TABLET PO SCH (09:25)
[2022-06-01] MEDS: PRENATAL VITAMINS W/ FOLIC ACID TABLET (FP) PO SCH (09:26)
[2022-06-01] MEDS: HYDROCHLOROTHIAZIDE 25 MG TABLET (FP) PO SCH (09:26)
[2022-06-01] MEDS: LISINOPRIL 20 MG TABLET PO SCH (09:26)
[2022-06-01] MEDS: QUEtiapine FUMARATE 200 MG TABLET PO SCH (21:15)
[2022-06-01] MEDS: THIAMINE HCL 100 MG TABLET (FP) PO SCH (21:15)
[2022-06-01] MEDS: MELATONIN 5 MG TABLETS PO SCH (21:15)
[2022-06-01] MEDS: ATORVASTATIN CA 10 MG TABLET (FP) PO SCH (21:15)
[2022-06-02] MEDS ORDERED: ARIPiprazole 5 MG TABLET ONE (08:46)
[2022-06-02] MEDS: ARIPiprazole 10 MG TABLET PO SCH (09:37)
[2022-06-02] MEDS: HYDROCHLOROTHIAZIDE 25 MG TABLET (FP) PO SCH (09:38)
[2022-06-02] MEDS: PRENATAL VITAMINS W/ FOLIC ACID TABLET (FP) PO SCH (09:38)
[2022-06-02] MEDS: LISINOPRIL 20 MG TABLET PO SCH (09:38)
[2022-06-02] MEDS: ATORVASTATIN CA 10 MG TABLET (FP) PO SCH (21:26)
[2022-06-02] MEDS: THIAMINE HCL 100 MG TABLET (FP) PO SCH (21:26)
[2022-06-02] MEDS: QUEtiapine FUMARATE 200 MG TABLET PO SCH (21:26)
[2022-06-02] MEDS: MELATONIN 5 MG TABLETS PO SCH (21:26)
[2022-06-03] MEDS: LISINOPRIL 20 MG TABLET PO SCH (10:04)
[2022-06-03] MEDS: HYDROCHLOROTHIAZIDE 25 MG TABLET (FP) PO SCH (10:04)
[2022-06-03] MEDS: PRENATAL VITAMINS W/ FOLIC ACID TABLET (FP) PO SCH (10:04)
[2022-06-03] MEDS: ARIPiprazole 10 MG TABLET PO SCH (10:04)
[2022-06-03] MEDS: QUEtiapine FUMARATE 200 MG TABLET PO SCH (21:13)
[2022-06-03] MEDS: THIAMINE HCL 100 MG TABLET (FP) PO SCH (21:13)
[2022-06-03] MEDS: MELATONIN 5 MG TABLETS PO SCH (21:13)
[2022-06-03] MEDS: ATORVASTATIN CA 10 MG TABLET (FP) PO SCH (21:13)
[2022-06-04] MEDS: HYDROCHLOROTHIAZIDE 25 MG TABLET (FP) PO SCH (09:35)
[2022-06-04] MEDS: LISINOPRIL 20 MG TABLET PO SCH (09:35)
[2022-06-04] MEDS: ARIPiprazole 10 MG TABLET PO SCH (09:36)
[2022-06-04] MEDS: PRENATAL VITAMINS W/ FOLIC ACID TABLET (FP) PO SCH (09:36)
[2022-06-04] MEDS: THIAMINE HCL 100 MG TABLET (FP) PO SCH (21:18)
[2022-06-04] MEDS: QUEtiapine FUMARATE 200 MG TABLET PO SCH (21:18)
[2022-06-04] MEDS: MELATONIN 5 MG TABLETS PO SCH (21:18)
[2022-06-04] MEDS: ATORVASTATIN CA 10 MG TABLET (FP) PO SCH (21:18)
[2022-06-05] MEDS: LISINOPRIL 20 MG TABLET PO SCH (09:48)
[2022-06-05] MEDS: PRENATAL VITAMINS W/ FOLIC ACID TABLET (FP) PO SCH (09:48)
[2022-06-05] MEDS: HYDROCHLOROTHIAZIDE 25 MG TABLET (FP) PO SCH (09:48)
[2022-06-05] MEDS: ARIPiprazole 10 MG TABLET PO SCH (09:48)
[2022-06-05] MEDS: hydrOXYzine PAMOATE 25 MG CAPSULE (FP) PO PRN (21:38)
[2022-06-05] MEDS: THIAMINE HCL 100 MG TABLET (FP) PO SCH (21:38)
[2022-06-05] MEDS: MELATONIN 5 MG TABLETS PO SCH (21:38)
[2022-06-05] MEDS: ATORVASTATIN CA 10 MG TABLET (FP) PO SCH (21:38)
[2022-06-05] MEDS: QUEtiapine FUMARATE 200 MG TABLET PO SCH (21:38)
[2022-06-06] MEDS ORDERED: ARIPiprazole 5 MG TABLET ONE (08:44)
[2022-06-06] MEDS: PRENATAL VITAMINS W/ FOLIC ACID TABLET (FP) PO SCH (09:52)
[2022-06-06] MEDS: ARIPiprazole 10 MG TABLET PO SCH (09:52)
[2022-06-06] MEDS: HYDROCHLOROTHIAZIDE 25 MG TABLET (FP) PO SCH (09:52)
[2022-06-06] MEDS: LISINOPRIL 20 MG TABLET PO SCH (09:52)
[2022-06-06] MEDS: IBUPROFEN 400 MG TABLET (FP) PO PRN ×2 (09:54→21:12)
[2022-06-06] MEDS: QUEtiapine FUMARATE 200 MG TABLET PO SCH (21:12)
[2022-06-06] MEDS: THIAMINE HCL 100 MG TABLET (FP) PO SCH (21:12)
[2022-06-06] MEDS: hydrOXYzine PAMOATE 25 MG CAPSULE (FP) PO PRN (21:12)
[2022-06-06] MEDS: ATORVASTATIN CA 10 MG TABLET (FP) PO SCH (21:12)
[2022-06-06] MEDS: MELATONIN 5 MG TABLETS PO SCH (21:14)
[2022-06-07] MEDS ORDERED: ARIPiprazole 5 MG TABLET ONE (08:44)
[2022-06-07] MEDS: IBUPROFEN 400 MG TABLET (FP) PO PRN (08:46)
[2022-06-07] MEDS: HYDROCHLOROTHIAZIDE 25 MG TABLET (FP) PO SCH (09:56)
[2022-06-07] MEDS: PRENATAL VITAMINS W/ FOLIC ACID TABLET (FP) PO SCH (09:56)
[2022-06-07] MEDS: ARIPiprazole 10 MG TABLET PO SCH (09:56)
[2022-06-07] MEDS: LISINOPRIL 20 MG TABLET PO SCH (09:57)
[2022-06-07] MEDS: ATORVASTATIN CA 10 MG TABLET (FP) PO SCH (21:18)
[2022-06-07] MEDS: MELATONIN 5 MG TABLETS PO SCH (21:18)
[2022-06-07] MEDS: QUEtiapine FUMARATE 200 MG TABLET PO SCH (21:18)
[2022-06-07] MEDS: THIAMINE HCL 100 MG TABLET (FP) PO SCH (21:18)
[2022-06-08 06:37] VITALS: RESP 16; TEMP 97.3
[2022-06-08] MEDS: PRENATAL VITAMINS W/ FOLIC ACID TABLET (FP) PO SCH (09:01)
[2022-06-08] MEDS: LISINOPRIL 20 MG TABLET PO SCH (09:01)
[2022-06-08] MEDS: HYDROCHLOROTHIAZIDE 25 MG TABLET (FP) PO SCH (09:01)
[2022-06-08] MEDS: ARIPiprazole 10 MG TABLET PO SCH (09:02)
[2022-06-08 09:05] VITALS: BP 142/83; PULSE 83
== END 2022-06-08 09:11 | disposition home or self-care (01) | DRG 895 ==
LOC: YASAS 20:53 → SUATTDRO 20:53 → Y3E 05-13 09:24
PROVIDERS: ADMIT Allergy & Immunology; ATTEND Psychiatry & Neurology Pain Medicine
PROC: HZ42ZZZ Group Counseling for Substance Abuse Treatment, Cognitive-Behavioral (ICD-10-PCS; principal; 2022-05-13)
DX: F10.20 Alcohol dependence, uncomplicated (principal); F14.20 Cocaine dependence, uncomplicated; F12.20 Cannabis dependence, uncomplicated; F19.24 Other psychoactive substance dependence with psychoactive substance-induced mood disorder; F31.9 Bipolar disorder, unspecified; I10 Essential (primary) hypertension; E78.00 Pure hypercholesterolemia, unspecified; J45.909 Unspecified asthma, uncomplicated; R19.7 Diarrhea, unspecified; Z87.891 Personal history of nicotine dependence; Z88.0 Allergy status to penicillin; Z88.5 Allergy status to narcotic agent; Z91.013 Allergy to seafood
CPT/HCPCS: 36415; 71045-TC-FY; 80053; 81003; 85027; 86780; 87811; C9803-CS; U0003; U0005

== ENCOUNTER 2022-08-13 12:54 | Inpatient (IN) | payer MEDICARE, OTHER ==
[2022-08-13 13:59] VITALS: BMI 28.8
[2022-08-13] MEDS ORDERED: MAGNESIUM HYDROX 2400MG/30ML ORAL SUSPENSION 30 ML CUP PO PRN (14:31)
[2022-08-13] MEDS ORDERED: P-EPHED 60MG/TRIPROLIDI 2.5MG TABLET PO PRN (14:31)
[2022-08-13] MEDS ORDERED: IBUPROFEN 400 MG TABLET (FP) PO PRN (14:31)
[2022-08-13] MEDS ORDERED: MAG HYDROX/AL HYDROX/SIMETH 30 ML UNIT-DOSE CUP PO PRN (14:31)
[2022-08-13] MEDS ORDERED: hydrOXYzine PAMOATE 25 MG CAPSULE (FP) PO PRN (14:31)
[2022-08-13] MEDS ORDERED: MAGNESIUM CITRATE 300 ML BOTTLE PO PRN (14:31)
[2022-08-13] MEDS ORDERED: ALBUTEROL SO4 HFA INHALER IH PRN (14:33)
[2022-08-13] MEDS ORDERED: MENTHOL/PHENOL 1 EACH UD MM PRN (15:02)
[2022-08-13] MEDS: MELATONIN 5 MG TABLETS PO SCH (21:57)
[2022-08-13] MEDS: ATORVASTATIN CA 10 MG TABLET (FP) PO SCH (21:57)
[2022-08-13] MEDS: THIAMINE HCL 100 MG TABLET (FP) PO SCH (21:57)
[2022-08-14] MEDS: PRENATAL VITAMINS W/ FOLIC ACID TABLET (FP) PO SCH (10:00)
[2022-08-14] MEDS: amLODIPine BESYLATE 10 MG TABLET (FP) PO SCH (10:00)
[2022-08-14] MEDS: HYDROCHLOROTHIAZIDE 12.5 MG CAPSULE (FP) PO SCH (10:00)
[2022-08-14] MEDS: ARIPiprazole 10 MG TABLET PO SCH (10:01)
[2022-08-14 11:28] LABS: PH,URINE 6.5 (5.0-8.0); URINE APPEARANCE CLEAR; URINE BILIRUBIN NEGATIVE (NEGATIVE); URINE COLOR YELLOW; URINE GLUCOSE (UA) TRACE (NEGATIVE); URINE KETONE NEGATIVE (NEGATIVE); URINE LEUK ESTERASE NEGATIVE (NEGATIVE); URINE NITRITE NEGATIVE (NEGATIVE); URINE PROTEIN NEGATIVE (NEGATIVE)
[2022-08-14 11:33] LABS: HEMATOCRIT 40.1 % (35.4-49); HEMOGLOBIN 13.4 GM/dL (11.7-16.9); MCH 30.7 pg (25.7-33.7); MCHC 33.5 g/dl (32.0-35.9); MEAN CELL VOLUME 91.7 fl (80-96); MEAN PLT VOLUME 8.7 fl (7.5-11.1); PLATELET COUNT 363 10^3/uL (134-434); RBC 4.37 M/mm3 (4.00-5.60); RDW 13.2 % (11.9-15.9); WHITE BLOOD COUNT 7.9 K/mm3 (4.0-10.0)
[2022-08-14 11:38] LABS: CALCIUM 8.9 mg/dL (8.5-10.1)
[2022-08-14 11:39] LABS: ALBUMIN 3.2 g/dl (3.4-5.0); BLOOD UREA NITROGEN 15.9 mg/dL (7-18)
[2022-08-14 11:42] LABS: CREATININE 0.9 mg/dL (0.55-1.3)
[2022-08-14 11:44] LABS: BILIRUBIN,TOTAL 0.5 mg/dL (0.2-1)
[2022-08-14 12:07] LABS: SYPHILIS W/ RPR CONF NON-REACTIVE (NONREACTIVE)
[2022-08-14] MEDS: QUEtiapine FUMARATE 200 MG TABLET PO SCH (21:54)
[2022-08-14] MEDS: ATORVASTATIN CA 10 MG TABLET (FP) PO SCH (21:54)
[2022-08-14] MEDS: THIAMINE HCL 100 MG TABLET (FP) PO SCH (21:54)
[2022-08-14] MEDS: MELATONIN 5 MG TABLETS PO SCH (21:54)
[2022-08-15] MEDS: ARIPiprazole 10 MG TABLET PO SCH (10:10)
[2022-08-15] MEDS: PRENATAL VITAMINS W/ FOLIC ACID TABLET (FP) PO SCH (10:10)
[2022-08-15] MEDS: amLODIPine BESYLATE 10 MG TABLET (FP) PO SCH (10:11)
[2022-08-15] MEDS: HYDROCHLOROTHIAZIDE 12.5 MG CAPSULE (FP) PO SCH (10:11)
[2022-08-15] MEDS: guaiFENesin 200 MG/10 ML 10 ML UNIT-DOSE CUPS PO PRN (11:19)
[2022-08-15] MEDS: MELATONIN 5 MG TABLETS PO SCH (21:20)
[2022-08-15] MEDS: THIAMINE HCL 100 MG TABLET (FP) PO SCH (21:20)
[2022-08-15] MEDS: ATORVASTATIN CA 10 MG TABLET (FP) PO SCH (21:20)
[2022-08-15] MEDS: QUEtiapine FUMARATE 200 MG TABLET PO SCH (21:20)
[2022-08-16] MEDS: PRENATAL VITAMINS W/ FOLIC ACID TABLET (FP) PO SCH (10:28)
[2022-08-16] MEDS: ARIPiprazole 10 MG TABLET PO SCH (10:28)
[2022-08-16] MEDS: HYDROCHLOROTHIAZIDE 12.5 MG CAPSULE (FP) PO SCH (10:28)
[2022-08-16] MEDS: amLODIPine BESYLATE 10 MG TABLET (FP) PO SCH (10:28)
[2022-08-16] MEDS: ATORVASTATIN CA 10 MG TABLET (FP) PO SCH (21:34)
[2022-08-16] MEDS: THIAMINE HCL 100 MG TABLET (FP) PO SCH (21:34)
[2022-08-16] MEDS: QUEtiapine FUMARATE 200 MG TABLET PO SCH (21:34)
[2022-08-16] MEDS: MELATONIN 5 MG TABLETS PO SCH (21:34)
[2022-08-16] MEDS: guaiFENesin 200 MG/10 ML 10 ML UNIT-DOSE CUPS PO PRN (21:35)
[2022-08-17] MEDS: PRENATAL VITAMINS W/ FOLIC ACID TABLET (FP) PO SCH (10:04)
[2022-08-17] MEDS: ARIPiprazole 10 MG TABLET PO SCH (10:05)
[2022-08-17] MEDS: amLODIPine BESYLATE 10 MG TABLET (FP) PO SCH (10:05)
[2022-08-17] MEDS: HYDROCHLOROTHIAZIDE 12.5 MG CAPSULE (FP) PO SCH (10:05)
[2022-08-17] MEDS: MELATONIN 5 MG TABLETS PO SCH (21:25)
[2022-08-17] MEDS: THIAMINE HCL 100 MG TABLET (FP) PO SCH (21:25)
[2022-08-17] MEDS: ATORVASTATIN CA 10 MG TABLET (FP) PO SCH (21:25)
[2022-08-17] MEDS: QUEtiapine FUMARATE 200 MG TABLET PO SCH (21:25)
[2022-08-18] MEDS: PRENATAL VITAMINS W/ FOLIC ACID TABLET (FP) PO SCH (09:54)
[2022-08-18] MEDS: amLODIPine BESYLATE 10 MG TABLET (FP) PO SCH (09:55)
[2022-08-18] MEDS: ARIPiprazole 10 MG TABLET PO SCH (09:55)
[2022-08-18] MEDS: HYDROCHLOROTHIAZIDE 12.5 MG CAPSULE (FP) PO SCH (09:55)
[2022-08-18] MEDS: MELATONIN 5 MG TABLETS PO SCH (21:19)
[2022-08-18] MEDS: QUEtiapine FUMARATE 200 MG TABLET PO SCH (21:19)
[2022-08-18] MEDS: THIAMINE HCL 100 MG TABLET (FP) PO SCH (21:19)
[2022-08-18] MEDS: ATORVASTATIN CA 10 MG TABLET (FP) PO SCH (21:19)
[2022-08-19] MEDS: HYDROCHLOROTHIAZIDE 12.5 MG CAPSULE (FP) PO SCH (10:34)
[2022-08-19] MEDS: ARIPiprazole 10 MG TABLET PO SCH (10:34)
[2022-08-19] MEDS: amLODIPine BESYLATE 10 MG TABLET (FP) PO SCH (10:35)
[2022-08-19] MEDS: PRENATAL VITAMINS W/ FOLIC ACID TABLET (FP) PO SCH (10:35)
[2022-08-19] MEDS: MELATONIN 5 MG TABLETS PO SCH (21:33)
[2022-08-19] MEDS: THIAMINE HCL 100 MG TABLET (FP) PO SCH (21:33)
[2022-08-19] MEDS: ATORVASTATIN CA 10 MG TABLET (FP) PO SCH (21:33)
[2022-08-19] MEDS: QUEtiapine FUMARATE 200 MG TABLET PO SCH (21:33)
[2022-08-20] MEDS: PRENATAL VITAMINS W/ FOLIC ACID TABLET (FP) PO SCH (10:37)
[2022-08-20] MEDS: amLODIPine BESYLATE 10 MG TABLET (FP) PO SCH (10:37)
[2022-08-20] MEDS: ARIPiprazole 10 MG TABLET PO SCH (10:37)
[2022-08-20] MEDS: HYDROCHLOROTHIAZIDE 12.5 MG CAPSULE (FP) PO SCH (10:37)
[2022-08-20] MEDS: LOPERAMIDE HCL 2 MG CAPSULE PO PRN (10:38)
[2022-08-20] MEDS: MELATONIN 5 MG TABLETS PO SCH (21:48)
[2022-08-20] MEDS: ATORVASTATIN CA 10 MG TABLET (FP) PO SCH (21:48)
[2022-08-20] MEDS: QUEtiapine FUMARATE 200 MG TABLET PO SCH (21:48)
[2022-08-20] MEDS: THIAMINE HCL 100 MG TABLET (FP) PO SCH (21:48)
[2022-08-21] MEDS: HYDROCHLOROTHIAZIDE 12.5 MG CAPSULE (FP) PO SCH (09:51)
[2022-08-21] MEDS: PRENATAL VITAMINS W/ FOLIC ACID TABLET (FP) PO SCH (09:51)
[2022-08-21] MEDS: amLODIPine BESYLATE 10 MG TABLET (FP) PO SCH (09:51)
[2022-08-21] MEDS: ARIPiprazole 10 MG TABLET PO SCH (09:51)
[2022-08-21] MEDS: QUEtiapine FUMARATE 200 MG TABLET PO SCH (21:22)
[2022-08-21] MEDS: MELATONIN 5 MG TABLETS PO SCH (21:22)
[2022-08-21] MEDS: ATORVASTATIN CA 10 MG TABLET (FP) PO SCH (21:22)
[2022-08-21] MEDS: THIAMINE HCL 100 MG TABLET (FP) PO SCH (21:22)
[2022-08-22] MEDS: amLODIPine BESYLATE 10 MG TABLET (FP) PO SCH (10:17)
[2022-08-22] MEDS: ARIPiprazole 10 MG TABLET PO SCH (10:17)
[2022-08-22] MEDS: PRENATAL VITAMINS W/ FOLIC ACID TABLET (FP) PO SCH (10:17)
[2022-08-22] MEDS: HYDROCHLOROTHIAZIDE 12.5 MG CAPSULE (FP) PO SCH (10:17)
[2022-08-22] MEDS: ACETAMINOPHEN 325 MG TABLET (FP) PO PRN (13:24)
[2022-08-22] MEDS: THIAMINE HCL 100 MG TABLET (FP) PO SCH (21:31)
[2022-08-22] MEDS: MELATONIN 5 MG TABLETS PO SCH (21:31)
[2022-08-22] MEDS: ATORVASTATIN CA 10 MG TABLET (FP) PO SCH (21:31)
[2022-08-22] MEDS: QUEtiapine FUMARATE 200 MG TABLET PO SCH (21:31)
[2022-08-23] MEDS: HYDROCHLOROTHIAZIDE 12.5 MG CAPSULE (FP) PO SCH (10:24)
[2022-08-23] MEDS: PRENATAL VITAMINS W/ FOLIC ACID TABLET (FP) PO SCH (10:24)
[2022-08-23] MEDS: ARIPiprazole 10 MG TABLET PO SCH (10:24)
[2022-08-23] MEDS: amLODIPine BESYLATE 10 MG TABLET (FP) PO SCH (10:24)
[2022-08-23] MEDS: ATORVASTATIN CA 10 MG TABLET (FP) PO SCH (21:25)
[2022-08-23] MEDS: MELATONIN 5 MG TABLETS PO SCH (21:25)
[2022-08-23] MEDS: THIAMINE HCL 100 MG TABLET (FP) PO SCH (21:25)
[2022-08-23] MEDS: QUEtiapine FUMARATE 200 MG TABLET PO SCH (21:26)
[2022-08-24] MEDS: PRENATAL VITAMINS W/ FOLIC ACID TABLET (FP) PO SCH (10:04)
[2022-08-24] MEDS: HYDROCHLOROTHIAZIDE 12.5 MG CAPSULE (FP) PO SCH (10:05)
[2022-08-24] MEDS: ACETAMINOPHEN 325 MG TABLET (FP) PO PRN (10:05)
[2022-08-24] MEDS: amLODIPine BESYLATE 10 MG TABLET (FP) PO SCH (10:05)
[2022-08-24] MEDS: ARIPiprazole 10 MG TABLET PO SCH (10:05)
[2022-08-24] MEDS: MELATONIN 5 MG TABLETS PO SCH (21:43)
[2022-08-24] MEDS: THIAMINE HCL 100 MG TABLET (FP) PO SCH (21:43)
[2022-08-24] MEDS: QUEtiapine FUMARATE 200 MG TABLET PO SCH (21:43)
[2022-08-24] MEDS: ATORVASTATIN CA 10 MG TABLET (FP) PO SCH (21:43)
[2022-08-25] MEDS: PRENATAL VITAMINS W/ FOLIC ACID TABLET (FP) PO SCH (09:29)
[2022-08-25] MEDS: LOPERAMIDE HCL 2 MG CAPSULE PO PRN (09:29)
[2022-08-25] MEDS: ARIPiprazole 10 MG TABLET PO SCH (09:29)
[2022-08-25] MEDS: HYDROCHLOROTHIAZIDE 12.5 MG CAPSULE (FP) PO SCH (09:29)
[2022-08-25] MEDS: amLODIPine BESYLATE 10 MG TABLET (FP) PO SCH (09:29)
[2022-08-25] MEDS: THIAMINE HCL 100 MG TABLET (FP) PO SCH (21:17)
[2022-08-25] MEDS: MELATONIN 5 MG TABLETS PO SCH (21:17)
[2022-08-25] MEDS: QUEtiapine FUMARATE 200 MG TABLET PO SCH (21:17)
[2022-08-25] MEDS: ATORVASTATIN CA 10 MG TABLET (FP) PO SCH (21:17)
[2022-08-26] MEDS: PRENATAL VITAMINS W/ FOLIC ACID TABLET (FP) PO SCH (09:59)
[2022-08-26] MEDS: ARIPiprazole 10 MG TABLET PO SCH (09:59)
[2022-08-26] MEDS: amLODIPine BESYLATE 10 MG TABLET (FP) PO SCH (10:00)
[2022-08-26] MEDS: HYDROCHLOROTHIAZIDE 12.5 MG CAPSULE (FP) PO SCH (10:00)
[2022-08-26] MEDS: LOPERAMIDE HCL 2 MG CAPSULE PO PRN (10:00)
[2022-08-26] MEDS: THIAMINE HCL 100 MG TABLET (FP) PO SCH (21:10)
[2022-08-26] MEDS: MELATONIN 5 MG TABLETS PO SCH (21:10)
[2022-08-26] MEDS: QUEtiapine FUMARATE 200 MG TABLET PO SCH (21:10)
[2022-08-26] MEDS: ATORVASTATIN CA 10 MG TABLET (FP) PO SCH (21:10)
[2022-08-27] MEDS: PRENATAL VITAMINS W/ FOLIC ACID TABLET (FP) PO SCH (09:22)
[2022-08-27] MEDS: HYDROCHLOROTHIAZIDE 12.5 MG CAPSULE (FP) PO SCH (09:22)
[2022-08-27] MEDS: amLODIPine BESYLATE 10 MG TABLET (FP) PO SCH (09:22)
[2022-08-27] MEDS: ARIPiprazole 10 MG TABLET PO SCH (09:23)
[2022-08-27] MEDS: LOPERAMIDE HCL 2 MG CAPSULE PO PRN (09:24)
[2022-08-27] MEDS: ATORVASTATIN CA 10 MG TABLET (FP) PO SCH (21:37)
[2022-08-27] MEDS: QUEtiapine FUMARATE 200 MG TABLET PO SCH (21:37)
[2022-08-27] MEDS: MELATONIN 5 MG TABLETS PO SCH (21:37)
[2022-08-27] MEDS: THIAMINE HCL 100 MG TABLET (FP) PO SCH (21:37)
[2022-08-28] MEDS: HYDROCHLOROTHIAZIDE 12.5 MG CAPSULE (FP) PO SCH (10:07)
[2022-08-28] MEDS: amLODIPine BESYLATE 10 MG TABLET (FP) PO SCH (10:07)
[2022-08-28] MEDS: ARIPiprazole 10 MG TABLET PO SCH (10:07)
[2022-08-28] MEDS: PRENATAL VITAMINS W/ FOLIC ACID TABLET (FP) PO SCH (10:07)
[2022-08-28] MEDS: THIAMINE HCL 100 MG TABLET (FP) PO SCH (21:15)
[2022-08-28] MEDS: MELATONIN 5 MG TABLETS PO SCH (21:15)
[2022-08-28] MEDS: ATORVASTATIN CA 10 MG TABLET (FP) PO SCH (21:15)
[2022-08-28] MEDS: QUEtiapine FUMARATE 200 MG TABLET PO SCH (21:15)
[2022-08-29] MEDS: ARIPiprazole 10 MG TABLET PO SCH (09:54)
[2022-08-29] MEDS: amLODIPine BESYLATE 10 MG TABLET (FP) PO SCH (09:55)
[2022-08-29] MEDS: HYDROCHLOROTHIAZIDE 12.5 MG CAPSULE (FP) PO SCH (09:55)
[2022-08-29] MEDS: PRENATAL VITAMINS W/ FOLIC ACID TABLET (FP) PO SCH (09:55)
[2022-08-29] MEDS: THIAMINE HCL 100 MG TABLET (FP) PO SCH (21:18)
[2022-08-29] MEDS: QUEtiapine FUMARATE 200 MG TABLET PO SCH (21:18)
[2022-08-29] MEDS: MELATONIN 5 MG TABLETS PO SCH (21:18)
[2022-08-29] MEDS: ATORVASTATIN CA 10 MG TABLET (FP) PO SCH (21:18)
[2022-08-30] MEDS: ARIPiprazole 10 MG TABLET PO SCH (10:20)
[2022-08-30] MEDS: PRENATAL VITAMINS W/ FOLIC ACID TABLET (FP) PO SCH (10:20)
[2022-08-30] MEDS: HYDROCHLOROTHIAZIDE 12.5 MG CAPSULE (FP) PO SCH (10:21)
[2022-08-30] MEDS: amLODIPine BESYLATE 10 MG TABLET (FP) PO SCH (10:21)
[2022-08-30] MEDS: QUEtiapine FUMARATE 200 MG TABLET PO SCH (21:25)
[2022-08-30] MEDS: ATORVASTATIN CA 10 MG TABLET (FP) PO SCH (21:25)
[2022-08-30] MEDS: MELATONIN 5 MG TABLETS PO SCH (21:25)
[2022-08-30] MEDS: THIAMINE HCL 100 MG TABLET (FP) PO SCH (21:26)
[2022-08-31] MEDS: ARIPiprazole 10 MG TABLET PO SCH (09:30)
[2022-08-31] MEDS: amLODIPine BESYLATE 10 MG TABLET (FP) PO SCH (09:30)
[2022-08-31] MEDS: HYDROCHLOROTHIAZIDE 12.5 MG CAPSULE (FP) PO SCH (09:31)
[2022-08-31] MEDS: PRENATAL VITAMINS W/ FOLIC ACID TABLET (FP) PO SCH (09:31)
[2022-08-31] MEDS: THIAMINE HCL 100 MG TABLET (FP) PO SCH (21:27)
[2022-08-31] MEDS: MELATONIN 5 MG TABLETS PO SCH (21:27)
[2022-08-31] MEDS: ATORVASTATIN CA 10 MG TABLET (FP) PO SCH (21:28)
[2022-08-31] MEDS: QUEtiapine FUMARATE 200 MG TABLET PO SCH (21:28)
[2022-09-01] MEDS: ARIPiprazole 10 MG TABLET PO SCH (10:04)
[2022-09-01] MEDS: PRENATAL VITAMINS W/ FOLIC ACID TABLET (FP) PO SCH (10:04)
[2022-09-01] MEDS: amLODIPine BESYLATE 10 MG TABLET (FP) PO SCH (10:04)
[2022-09-01] MEDS: HYDROCHLOROTHIAZIDE 12.5 MG CAPSULE (FP) PO SCH (10:04)
[2022-09-01] MEDS: MELATONIN 5 MG TABLETS PO SCH (21:18)
[2022-09-01] MEDS: ATORVASTATIN CA 10 MG TABLET (FP) PO SCH (21:18)
[2022-09-01] MEDS: QUEtiapine FUMARATE 200 MG TABLET PO SCH (21:18)
[2022-09-01] MEDS: THIAMINE HCL 100 MG TABLET (FP) PO SCH (21:18)
[2022-09-02] MEDS: ARIPiprazole 10 MG TABLET PO SCH (09:22)
[2022-09-02] MEDS: amLODIPine BESYLATE 10 MG TABLET (FP) PO SCH (09:22)
[2022-09-02] MEDS: PRENATAL VITAMINS W/ FOLIC ACID TABLET (FP) PO SCH (09:22)
[2022-09-02] MEDS: HYDROCHLOROTHIAZIDE 12.5 MG CAPSULE (FP) PO SCH (09:22)
[2022-09-02] MEDS: LOPERAMIDE HCL 2 MG CAPSULE PO PRN (11:35)
[2022-09-02] MEDS: QUEtiapine FUMARATE 200 MG TABLET PO SCH (22:07)
[2022-09-02] MEDS: THIAMINE HCL 100 MG TABLET (FP) PO SCH (22:07)
[2022-09-02] MEDS: MELATONIN 5 MG TABLETS PO SCH (22:07)
[2022-09-02] MEDS: ATORVASTATIN CA 10 MG TABLET (FP) PO SCH (22:07)
[2022-09-03] MEDS: amLODIPine BESYLATE 10 MG TABLET (FP) PO SCH (09:54)
[2022-09-03] MEDS: PRENATAL VITAMINS W/ FOLIC ACID TABLET (FP) PO SCH (09:54)
[2022-09-03] MEDS: HYDROCHLOROTHIAZIDE 12.5 MG CAPSULE (FP) PO SCH (09:54)
[2022-09-03] MEDS: ARIPiprazole 10 MG TABLET PO SCH (09:54)
[2022-09-03] MEDS: ATORVASTATIN CA 10 MG TABLET (FP) PO SCH (21:22)
[2022-09-03] MEDS: QUEtiapine FUMARATE 200 MG TABLET PO SCH (21:22)
[2022-09-03] MEDS: MELATONIN 5 MG TABLETS PO SCH (21:22)
[2022-09-03] MEDS: THIAMINE HCL 100 MG TABLET (FP) PO SCH (21:22)
[2022-09-04 09:16] VITALS: RESP 18
[2022-09-04] MEDS: ARIPiprazole 10 MG TABLET PO SCH (09:29)
[2022-09-04] MEDS: HYDROCHLOROTHIAZIDE 12.5 MG CAPSULE (FP) PO SCH (09:29)
[2022-09-04] MEDS: PRENATAL VITAMINS W/ FOLIC ACID TABLET (FP) PO SCH (09:29)
[2022-09-04] MEDS: amLODIPine BESYLATE 10 MG TABLET (FP) PO SCH (09:29)
[2022-09-04] MEDS: ATORVASTATIN CA 10 MG TABLET (FP) PO SCH (21:07)
[2022-09-04] MEDS: THIAMINE HCL 100 MG TABLET (FP) PO SCH (21:07)
[2022-09-04] MEDS: MELATONIN 5 MG TABLETS PO SCH (21:07)
[2022-09-04] MEDS: QUEtiapine FUMARATE 200 MG TABLET PO SCH (21:07)
[2022-09-05] MEDS: PRENATAL VITAMINS W/ FOLIC ACID TABLET (FP) PO SCH (09:50)
[2022-09-05] MEDS: ARIPiprazole 10 MG TABLET PO SCH (09:51)
[2022-09-05] MEDS: HYDROCHLOROTHIAZIDE 12.5 MG CAPSULE (FP) PO SCH (09:51)
[2022-09-05] MEDS: amLODIPine BESYLATE 10 MG TABLET (FP) PO SCH (09:51)
[2022-09-05] MEDS: THIAMINE HCL 100 MG TABLET (FP) PO SCH (21:27)
[2022-09-05] MEDS: MELATONIN 5 MG TABLETS PO SCH (21:27)
[2022-09-05] MEDS: QUEtiapine FUMARATE 200 MG TABLET PO SCH (21:28)
[2022-09-05] MEDS: ATORVASTATIN CA 10 MG TABLET (FP) PO SCH (21:28)
[2022-09-06] MEDS: PRENATAL VITAMINS W/ FOLIC ACID TABLET (FP) PO SCH (09:12)
[2022-09-06] MEDS: HYDROCHLOROTHIAZIDE 12.5 MG CAPSULE (FP) PO SCH (09:12)
[2022-09-06] MEDS: ARIPiprazole 10 MG TABLET PO SCH (09:12)
[2022-09-06] MEDS: amLODIPine BESYLATE 10 MG TABLET (FP) PO SCH (09:12)
[2022-09-06] MEDS: ATORVASTATIN CA 10 MG TABLET (FP) PO SCH (21:31)
[2022-09-06] MEDS: QUEtiapine FUMARATE 200 MG TABLET PO SCH (21:31)
[2022-09-06] MEDS: THIAMINE HCL 100 MG TABLET (FP) PO SCH (21:32)
[2022-09-06] MEDS: MELATONIN 5 MG TABLETS PO SCH (21:32)
[2022-09-07] MEDS: ARIPiprazole 10 MG TABLET PO SCH (09:57)
[2022-09-07] MEDS: PRENATAL VITAMINS W/ FOLIC ACID TABLET (FP) PO SCH (09:57)
[2022-09-07] MEDS: HYDROCHLOROTHIAZIDE 12.5 MG CAPSULE (FP) PO SCH (09:57)
[2022-09-07] MEDS: amLODIPine BESYLATE 10 MG TABLET (FP) PO SCH (09:57)
[2022-09-07] MEDS: ATORVASTATIN CA 10 MG TABLET (FP) PO SCH (21:06)
[2022-09-07] MEDS: THIAMINE HCL 100 MG TABLET (FP) PO SCH (21:06)
[2022-09-07] MEDS: MELATONIN 5 MG TABLETS PO SCH (21:06)
[2022-09-07] MEDS: QUEtiapine FUMARATE 200 MG TABLET PO SCH (21:06)
[2022-09-08 06:55] VITALS: TEMP 98
[2022-09-08] MEDS: PRENATAL VITAMINS W/ FOLIC ACID TABLET (FP) PO SCH (09:02)
[2022-09-08] MEDS: HYDROCHLOROTHIAZIDE 12.5 MG CAPSULE (FP) PO SCH (09:02)
[2022-09-08] MEDS: ARIPiprazole 10 MG TABLET PO SCH (09:02)
[2022-09-08] MEDS: amLODIPine BESYLATE 10 MG TABLET (FP) PO SCH (09:02)
[2022-09-08 09:03] VITALS: BP 148/90; PULSE 100
== END 2022-09-08 09:32 | disposition home or self-care (01) | DRG 895 ==
LOC: YASAS 12:54 → Y3W 18:51
PROVIDERS: ADMIT Allergy & Immunology; ATTEND Psychiatry & Neurology Pain Medicine
PROC: HZ42ZZZ Group Counseling for Substance Abuse Treatment, Cognitive-Behavioral (ICD-10-PCS; principal; 2022-08-13)
DX: F10.20 Alcohol dependence, uncomplicated (principal); F14.20 Cocaine dependence, uncomplicated; F19.282 Other psychoactive substance dependence with psychoactive substance-induced sleep disorder; F19.24 Other psychoactive substance dependence with psychoactive substance-induced mood disorder; F31.9 Bipolar disorder, unspecified; F41.9 Anxiety disorder, unspecified; F43.10 Post-traumatic stress disorder, unspecified; E78.5 Hyperlipidemia, unspecified; I10 Essential (primary) hypertension; M17.0 Bilateral primary osteoarthritis of knee; J45.909 Unspecified asthma, uncomplicated; R05.8 Other specified cough; B35.1 Tinea unguium; Z87.891 Personal history of nicotine dependence; Z86.69 Personal history of other diseases of the nervous system and sense organs; Z59.01 Sheltered homelessness
CPT/HCPCS: 36415; 80053; 81003; 85027; 86780; 86803; C9803-CS; U0003; U0005

== ENCOUNTER 2022-12-15 14:20 | Inpatient (IN) | payer MEDICARE, OTHER ==
[2022-12-15 14:32] VITALS: BMI 34.3
[2022-12-15] MEDS ORDERED: NICOTINE 10 MG CARTRIDGE (INHALER) IH PRN (15:36)
[2022-12-15] MEDS ORDERED: MAGNESIUM HYDROX 2400MG/30ML ORAL SUSPENSION 30 ML CUP PO PRN (15:36)
[2022-12-15] MEDS ORDERED: MAG HYDROX/AL HYDROX/SIMETH 30 ML UNIT-DOSE CUP PO PRN (15:36)
[2022-12-15] MEDS ORDERED: guaiFENesin 200 MG/10 ML 10 ML UNIT-DOSE CUPS PO PRN (15:36)
[2022-12-15] MEDS ORDERED: P-EPHED 60MG/TRIPROLIDI 2.5MG TABLET PO PRN (15:36)
[2022-12-15] MEDS ORDERED: POLYETHYLENE GLYCOL (HEALTHYLAX) 3350 17 GM PACKET PO PRN (15:36)
[2022-12-15] MEDS ORDERED: IBUPROFEN 400 MG TABLET (FP) PO PRN (15:36)
[2022-12-15] MEDS ORDERED: ACETAMINOPHEN 325 MG TABLET (FP) PO PRN (15:36)
[2022-12-15] MEDS ORDERED: BENZOCAINE/MENTHOL (CHLORASEPTIC ) LOZENGE MM PRN (15:36)
[2022-12-15] MEDS ORDERED: LOPERAMIDE HCL 2 MG CAPSULE PO PRN (15:36)
[2022-12-15] MEDS: NICOTINE 7 MG/24 HOURS TOPICAL PATCH TD SCH (20:05)
[2022-12-15] MEDS: PRENATAL VITAMINS W/ FOLIC ACID TABLET (FP) PO SCH (20:06)
[2022-12-15] MEDS: MELATONIN 5 MG TABLETS PO SCH (21:42)
[2022-12-15] MEDS: THIAMINE HCL 100 MG TABLET (FP) PO SCH (21:42)
[2022-12-16] MEDS: NICOTINE 7 MG/24 HOURS TOPICAL PATCH TD SCH (10:20)
[2022-12-16] MEDS: PRENATAL VITAMINS W/ FOLIC ACID TABLET (FP) PO SCH (10:21)
[2022-12-16] MEDS ORDERED: ALBUTEROL SO4 HFA INHALER IH PRN (10:45)
[2022-12-16] MEDS: HYDROCHLOROTHIAZIDE 12.5 MG CAPSULE (FP) PO SCH (11:55)
[2022-12-16 12:14] LABS: MCH 30.7 pg (25.7-33.7); MCHC 34.2 g/dl (32.0-35.9); MEAN CELL VOLUME 89.9 fl (80-96); MEAN PLT VOLUME 8.5 fl (7.5-11.1); PLATELET COUNT 328 10^3/uL (134-434); RBC 3.89 M/mm3 (4.00-5.60); RDW 13.8 % (11.9-15.9); WHITE BLOOD COUNT 7.3 K/mm3 (4.0-10.0)
[2022-12-16 12:19] LABS: ALBUMIN 2.8 g/dl (3.4-5.0); BLOOD UREA NITROGEN 24.7 mg/dL (7-18); CALCIUM 8.7 mg/dL (8.5-10.1)
[2022-12-16 12:22] LABS: CREATININE 1.2 mg/dL (0.55-1.3)
[2022-12-16 12:24] LABS: BILIRUBIN,TOTAL 0.2 mg/dL (0.2-1); TOT PROT 6.5 g/dl (6.4-8.2)
[2022-12-16 12:42] LABS: SYPHILIS W/ RPR CONF NON-REACTIVE (NONREACTIVE)
[2022-12-16 18:23] LABS: PH,URINE 5.5 (5.0-8.0); URINE APPEARANCE CLEAR; URINE BILIRUBIN NEGATIVE (NEGATIVE); URINE COLOR YELLOW; URINE GLUCOSE (UA) NEGATIVE (NEGATIVE); URINE KETONE NEGATIVE (NEGATIVE); URINE LEUK ESTERASE NEGATIVE (NEGATIVE); URINE NITRITE NEGATIVE (NEGATIVE); URINE PROTEIN NEGATIVE (NEGATIVE); URINE UROBILINOGEN 0.2 mg/dL (0.2-1.0)
[2022-12-16] MEDS: THIAMINE HCL 100 MG TABLET (FP) PO SCH (23:00)
[2022-12-16] MEDS: MELATONIN 5 MG TABLETS PO SCH (23:00)
[2022-12-16] MEDS: ATORVASTATIN CA 10 MG TABLET (FP) PO SCH (23:00)
[2022-12-17] MEDS: HYDROCHLOROTHIAZIDE 12.5 MG CAPSULE (FP) PO SCH (10:33)
[2022-12-17] MEDS: NICOTINE 7 MG/24 HOURS TOPICAL PATCH TD SCH (10:33)
[2022-12-17] MEDS: PRENATAL VITAMINS W/ FOLIC ACID TABLET (FP) PO SCH (10:33)
[2022-12-17] MEDS: MELATONIN 5 MG TABLETS PO SCH (21:37)
[2022-12-17] MEDS: ATORVASTATIN CA 10 MG TABLET (FP) PO SCH (21:38)
[2022-12-17] MEDS: THIAMINE HCL 100 MG TABLET (FP) PO SCH (21:39)
[2022-12-18] MEDS: PRENATAL VITAMINS W/ FOLIC ACID TABLET (FP) PO SCH (09:51)
[2022-12-18] MEDS: HYDROCHLOROTHIAZIDE 12.5 MG CAPSULE (FP) PO SCH (09:51)
[2022-12-18] MEDS: NICOTINE 7 MG/24 HOURS TOPICAL PATCH TD SCH (09:51)
[2022-12-18] MEDS: ATORVASTATIN CA 10 MG TABLET (FP) PO SCH (21:44)
[2022-12-18] MEDS: THIAMINE HCL 100 MG TABLET (FP) PO SCH (21:44)
[2022-12-18] MEDS: MELATONIN 5 MG TABLETS PO SCH (21:45)
[2022-12-18] MEDS: hydrOXYzine PAMOATE 25 MG CAPSULE (FP) PO PRN (21:45)
[2022-12-19] MEDS: PRENATAL VITAMINS W/ FOLIC ACID TABLET (FP) PO SCH (09:51)
[2022-12-19] MEDS: HYDROCHLOROTHIAZIDE 12.5 MG CAPSULE (FP) PO SCH (09:51)
[2022-12-19] MEDS: NICOTINE 7 MG/24 HOURS TOPICAL PATCH TD SCH (09:51)
[2022-12-19] MEDS: THIAMINE HCL 100 MG TABLET (FP) PO SCH (21:56)
[2022-12-19] MEDS: ATORVASTATIN CA 10 MG TABLET (FP) PO SCH (21:56)
[2022-12-19] MEDS: MELATONIN 5 MG TABLETS PO SCH (21:56)
[2022-12-19] MEDS: hydrOXYzine PAMOATE 25 MG CAPSULE (FP) PO PRN (21:58)
[2022-12-20] MEDS: HYDROCHLOROTHIAZIDE 12.5 MG CAPSULE (FP) PO SCH (09:24)
[2022-12-20] MEDS: PRENATAL VITAMINS W/ FOLIC ACID TABLET (FP) PO SCH (09:25)
[2022-12-20] MEDS: THIAMINE HCL 100 MG TABLET (FP) PO SCH (21:45)
[2022-12-20] MEDS: ATORVASTATIN CA 10 MG TABLET (FP) PO SCH (21:45)
[2022-12-20] MEDS: hydrOXYzine PAMOATE 25 MG CAPSULE (FP) PO PRN (21:47)
[2022-12-20] MEDS ORDERED: QUEtiapine FUMARATE 50 MG TABLET PO SCH (22:00)
[2022-12-21] MEDS: PRENATAL VITAMINS W/ FOLIC ACID TABLET (FP) PO SCH (09:59)
[2022-12-21] MEDS: HYDROCHLOROTHIAZIDE 25 MG TABLET (FP) PO SCH (09:59)
[2022-12-21] MEDS: THIAMINE HCL 100 MG TABLET (FP) PO SCH (21:40)
[2022-12-21] MEDS: QUEtiapine FUMARATE 50 MG TABLET PO SCH (21:40)
[2022-12-21] MEDS: ATORVASTATIN CA 10 MG TABLET (FP) PO SCH (21:40)
[2022-12-22] MEDS: HYDROCHLOROTHIAZIDE 25 MG TABLET (FP) PO SCH (09:49)
[2022-12-22] MEDS: PRENATAL VITAMINS W/ FOLIC ACID TABLET (FP) PO SCH (09:49)
[2022-12-22] MEDS: THIAMINE HCL 100 MG TABLET (FP) PO SCH (21:33)
[2022-12-22] MEDS: ATORVASTATIN CA 10 MG TABLET (FP) PO SCH (21:34)
[2022-12-22] MEDS: QUEtiapine FUMARATE 50 MG TABLET PO SCH (21:34)
[2022-12-23] MEDS: PRENATAL VITAMINS W/ FOLIC ACID TABLET (FP) PO SCH (09:35)
[2022-12-23] MEDS: HYDROCHLOROTHIAZIDE 25 MG TABLET (FP) PO SCH (09:35)
[2022-12-23] MEDS: QUEtiapine FUMARATE 50 MG TABLET PO SCH (21:48)
[2022-12-23] MEDS: THIAMINE HCL 100 MG TABLET (FP) PO SCH (21:48)
[2022-12-23] MEDS: ATORVASTATIN CA 10 MG TABLET (FP) PO SCH (21:48)
[2022-12-23] MEDS: hydrOXYzine PAMOATE 25 MG CAPSULE (FP) PO PRN (21:49)
[2022-12-24] MEDS: HYDROCHLOROTHIAZIDE 25 MG TABLET (FP) PO SCH (09:43)
[2022-12-24] MEDS: PRENATAL VITAMINS W/ FOLIC ACID TABLET (FP) PO SCH (09:43)
[2022-12-24] MEDS: THIAMINE HCL 100 MG TABLET (FP) PO SCH (21:38)
[2022-12-24] MEDS: QUEtiapine FUMARATE 50 MG TABLET PO SCH (21:38)
[2022-12-24] MEDS: ATORVASTATIN CA 10 MG TABLET (FP) PO SCH (21:38)
[2022-12-25] MEDS: PRENATAL VITAMINS W/ FOLIC ACID TABLET (FP) PO SCH (09:56)
[2022-12-25] MEDS: HYDROCHLOROTHIAZIDE 25 MG TABLET (FP) PO SCH (09:56)
[2022-12-25] MEDS: ATORVASTATIN CA 10 MG TABLET (FP) PO SCH (21:31)
[2022-12-25] MEDS: THIAMINE HCL 100 MG TABLET (FP) PO SCH (21:31)
[2022-12-25] MEDS: QUEtiapine FUMARATE 50 MG TABLET PO SCH (21:31)
[2022-12-26] MEDS: HYDROCHLOROTHIAZIDE 25 MG TABLET (FP) PO SCH (09:47)
[2022-12-26] MEDS: PRENATAL VITAMINS W/ FOLIC ACID TABLET (FP) PO SCH (09:47)
[2022-12-26] MEDS: THIAMINE HCL 100 MG TABLET (FP) PO SCH (21:38)
[2022-12-26] MEDS: hydrOXYzine PAMOATE 25 MG CAPSULE (FP) PO PRN (21:38)
[2022-12-26] MEDS: QUEtiapine FUMARATE 50 MG TABLET PO SCH (21:38)
[2022-12-26] MEDS: ATORVASTATIN CA 10 MG TABLET (FP) PO SCH (21:38)
[2022-12-27] MEDS: HYDROCHLOROTHIAZIDE 25 MG TABLET (FP) PO SCH (09:37)
[2022-12-27] MEDS: PRENATAL VITAMINS W/ FOLIC ACID TABLET (FP) PO SCH (09:38)
[2022-12-27] MEDS: hydrOXYzine PAMOATE 25 MG CAPSULE (FP) PO PRN (21:43)
[2022-12-27] MEDS: ATORVASTATIN CA 10 MG TABLET (FP) PO SCH (21:44)
[2022-12-27] MEDS: QUEtiapine FUMARATE 50 MG TABLET PO SCH (21:44)
[2022-12-27] MEDS: THIAMINE HCL 100 MG TABLET (FP) PO SCH (21:44)
[2022-12-28] MEDS: HYDROCHLOROTHIAZIDE 25 MG TABLET (FP) PO SCH (09:47)
[2022-12-28] MEDS: PRENATAL VITAMINS W/ FOLIC ACID TABLET (FP) PO SCH (09:47)
[2022-12-28] MEDS: LISINOPRIL 20 MG TABLET PO SCH (13:36)
[2022-12-28] MEDS: ASPIRIN 325 MG TABLET PO SCH (13:37)
[2022-12-28] MEDS: THIAMINE HCL 100 MG TABLET (FP) PO SCH (21:29)
[2022-12-28] MEDS: QUEtiapine FUMARATE 50 MG TABLET PO SCH (21:30)
[2022-12-28] MEDS: hydrOXYzine PAMOATE 25 MG CAPSULE (FP) PO PRN (21:30)
[2022-12-28] MEDS: ATORVASTATIN CA 10 MG TABLET (FP) PO SCH (21:30)
[2022-12-29] MEDS: LISINOPRIL 20 MG TABLET PO SCH (09:47)
[2022-12-29] MEDS: HYDROCHLOROTHIAZIDE 25 MG TABLET (FP) PO SCH (09:47)
[2022-12-29] MEDS: PRENATAL VITAMINS W/ FOLIC ACID TABLET (FP) PO SCH (09:47)
[2022-12-29] MEDS: ASPIRIN 325 MG TABLET PO SCH (09:48)
[2022-12-29] MEDS: THIAMINE HCL 100 MG TABLET (FP) PO SCH (21:24)
[2022-12-29] MEDS: QUEtiapine FUMARATE 50 MG TABLET PO SCH (21:24)
[2022-12-29] MEDS: hydrOXYzine PAMOATE 25 MG CAPSULE (FP) PO PRN (21:24)
[2022-12-29] MEDS: ATORVASTATIN CA 10 MG TABLET (FP) PO SCH (21:25)
[2022-12-30] MEDS: PRENATAL VITAMINS W/ FOLIC ACID TABLET (FP) PO SCH (09:30)
[2022-12-30] MEDS: HYDROCHLOROTHIAZIDE 25 MG TABLET (FP) PO SCH (09:30)
[2022-12-30] MEDS: LISINOPRIL 20 MG TABLET PO SCH (09:30)
[2022-12-30] MEDS: ASPIRIN 325 MG TABLET PO SCH (09:30)
[2022-12-30] MEDS: THIAMINE HCL 100 MG TABLET (FP) PO SCH (21:21)
[2022-12-30] MEDS: ATORVASTATIN CA 10 MG TABLET (FP) PO SCH (21:21)
[2022-12-30] MEDS: QUEtiapine FUMARATE 50 MG TABLET PO SCH (21:21)
[2022-12-31] MEDS: HYDROCHLOROTHIAZIDE 25 MG TABLET (FP) PO SCH (09:44)
[2022-12-31] MEDS: ASPIRIN 325 MG TABLET PO SCH (09:45)
[2022-12-31] MEDS: LISINOPRIL 20 MG TABLET PO SCH (09:45)
[2022-12-31] MEDS: PRENATAL VITAMINS W/ FOLIC ACID TABLET (FP) PO SCH (09:45)
[2022-12-31] MEDS: hydrOXYzine PAMOATE 25 MG CAPSULE (FP) PO PRN (21:12)
[2022-12-31] MEDS: THIAMINE HCL 100 MG TABLET (FP) PO SCH (21:12)
[2022-12-31] MEDS: QUEtiapine FUMARATE 50 MG TABLET PO SCH (21:12)
[2022-12-31] MEDS: ATORVASTATIN CA 10 MG TABLET (FP) PO SCH (21:12)
[2023-01-01] MEDS: PRENATAL VITAMINS W/ FOLIC ACID TABLET (FP) PO SCH (09:24)
[2023-01-01] MEDS: HYDROCHLOROTHIAZIDE 25 MG TABLET (FP) PO SCH (09:24)
[2023-01-01] MEDS: LISINOPRIL 20 MG TABLET PO SCH (09:24)
[2023-01-01] MEDS: ASPIRIN 325 MG TABLET PO SCH (09:24)
[2023-01-01] MEDS: hydrOXYzine PAMOATE 25 MG CAPSULE (FP) PO PRN (21:20)
[2023-01-01] MEDS: QUEtiapine FUMARATE 50 MG TABLET PO SCH (21:20)
[2023-01-01] MEDS: ATORVASTATIN CA 10 MG TABLET (FP) PO SCH (21:20)
[2023-01-01] MEDS: THIAMINE HCL 100 MG TABLET (FP) PO SCH (21:20)
[2023-01-02] MEDS ORDERED: ASPIRIN 325 MG TABLET PO PRN (08:24)
[2023-01-02] MEDS: PRENATAL VITAMINS W/ FOLIC ACID TABLET (FP) PO SCH (10:00)
[2023-01-02] MEDS: LISINOPRIL 20 MG TABLET PO SCH (10:00)
[2023-01-02] MEDS: HYDROCHLOROTHIAZIDE 25 MG TABLET (FP) PO SCH (10:00)
[2023-01-02] MEDS: QUEtiapine FUMARATE 50 MG TABLET PO SCH (21:16)
[2023-01-02] MEDS: ATORVASTATIN CA 10 MG TABLET (FP) PO SCH (21:16)
[2023-01-02] MEDS: THIAMINE HCL 100 MG TABLET (FP) PO SCH (21:16)
[2023-01-03] MEDS: LISINOPRIL 20 MG TABLET PO SCH (09:24)
[2023-01-03] MEDS: PRENATAL VITAMINS W/ FOLIC ACID TABLET (FP) PO SCH (09:24)
[2023-01-03] MEDS: HYDROCHLOROTHIAZIDE 25 MG TABLET (FP) PO SCH (09:24)
[2023-01-03] MEDS: THIAMINE HCL 100 MG TABLET (FP) PO SCH (21:08)
[2023-01-03] MEDS: QUEtiapine FUMARATE 50 MG TABLET PO SCH (21:08)
[2023-01-03] MEDS: ATORVASTATIN CA 10 MG TABLET (FP) PO SCH (21:08)
[2023-01-04] MEDS: HYDROCHLOROTHIAZIDE 25 MG TABLET (FP) PO SCH (09:36)
[2023-01-04] MEDS: PRENATAL VITAMINS W/ FOLIC ACID TABLET (FP) PO SCH (09:36)
[2023-01-04] MEDS: LISINOPRIL 20 MG TABLET PO SCH (09:36)
[2023-01-04] MEDS: ATORVASTATIN CA 10 MG TABLET (FP) PO SCH (20:59)
[2023-01-04] MEDS: QUEtiapine FUMARATE 50 MG TABLET PO SCH (20:59)
[2023-01-04] MEDS: THIAMINE HCL 100 MG TABLET (FP) PO SCH (20:59)
[2023-01-05] MEDS: HYDROCHLOROTHIAZIDE 25 MG TABLET (FP) PO SCH (09:39)
[2023-01-05] MEDS: LISINOPRIL 20 MG TABLET PO SCH (09:39)
[2023-01-05] MEDS: PRENATAL VITAMINS W/ FOLIC ACID TABLET (FP) PO SCH (09:39)
[2023-01-05] MEDS: THIAMINE HCL 100 MG TABLET (FP) PO SCH (21:02)
[2023-01-05] MEDS: QUEtiapine FUMARATE 50 MG TABLET PO SCH (21:03)
[2023-01-05] MEDS: ATORVASTATIN CA 10 MG TABLET (FP) PO SCH (21:03)
[2023-01-06] MEDS: ARIPiprazole 5 MG TABLET PO SCH (10:22)
[2023-01-06] MEDS: PRENATAL VITAMINS W/ FOLIC ACID TABLET (FP) PO SCH (10:22)
[2023-01-06] MEDS: LISINOPRIL 20 MG TABLET PO SCH (10:22)
[2023-01-06] MEDS: HYDROCHLOROTHIAZIDE 25 MG TABLET (FP) PO SCH (10:22)
[2023-01-06] MEDS: ATORVASTATIN CA 10 MG TABLET (FP) PO SCH (21:21)
[2023-01-06] MEDS: QUEtiapine FUMARATE 50 MG TABLET PO SCH (21:21)
[2023-01-06] MEDS: THIAMINE HCL 100 MG TABLET (FP) PO SCH (21:21)
[2023-01-07] MEDS: ARIPiprazole 5 MG TABLET PO SCH (09:23)
[2023-01-07] MEDS: PRENATAL VITAMINS W/ FOLIC ACID TABLET (FP) PO SCH (09:24)
[2023-01-07] MEDS: HYDROCHLOROTHIAZIDE 25 MG TABLET (FP) PO SCH (09:24)
[2023-01-07] MEDS: LISINOPRIL 20 MG TABLET PO SCH (09:24)
[2023-01-07] MEDS: THIAMINE HCL 100 MG TABLET (FP) PO SCH (21:23)
[2023-01-07] MEDS: QUEtiapine FUMARATE 50 MG TABLET PO SCH (21:23)
[2023-01-07] MEDS: ATORVASTATIN CA 10 MG TABLET (FP) PO SCH (21:23)
[2023-01-08] MEDS: HYDROCHLOROTHIAZIDE 25 MG TABLET (FP) PO SCH (09:35)
[2023-01-08] MEDS: ARIPiprazole 5 MG TABLET PO SCH (09:35)
[2023-01-08] MEDS: LISINOPRIL 20 MG TABLET PO SCH (09:35)
[2023-01-08] MEDS: PRENATAL VITAMINS W/ FOLIC ACID TABLET (FP) PO SCH (09:35)
[2023-01-08] MEDS: ATORVASTATIN CA 10 MG TABLET (FP) PO SCH (21:18)
[2023-01-08] MEDS: THIAMINE HCL 100 MG TABLET (FP) PO SCH (21:18)
[2023-01-08] MEDS: QUEtiapine FUMARATE 50 MG TABLET PO SCH (21:18)
[2023-01-09 06:42] VITALS: TEMP 97.5
[2023-01-09 09:57] VITALS: BP 136/86; PULSE 93; RESP 18
== END 2023-01-09 08:59 | disposition home or self-care (01) | DRG 895 ==
LOC: YASAS 14:20 → Y3E 19:15
PROVIDERS: ADMIT Allergy & Immunology; ATTEND Psychiatry & Neurology Pain Medicine
PROC: HZ42ZZZ Group Counseling for Substance Abuse Treatment, Cognitive-Behavioral (ICD-10-PCS; principal; 2022-12-15)
DX: F10.20 Alcohol dependence, uncomplicated (principal); F13.20 Sedative, hypnotic or anxiolytic dependence, uncomplicated; F19.282 Other psychoactive substance dependence with psychoactive substance-induced sleep disorder; F14.220 Cocaine dependence with intoxication, uncomplicated; E78.5 Hyperlipidemia, unspecified; I10 Essential (primary) hypertension; J45.909 Unspecified asthma, uncomplicated; M17.0 Bilateral primary osteoarthritis of knee; F41.9 Anxiety disorder, unspecified; F31.9 Bipolar disorder, unspecified; Z90.79 Acquired absence of other genital organ(s); Z86.11 Personal history of tuberculosis; Z88.0 Allergy status to penicillin; Z91.013 Allergy to seafood; Z59.01 Sheltered homelessness
CPT/HCPCS: 36415; 80053; 81003; 82962; 85027; 86780; 86803; 87811; C9803-CS; U0003; U0005